=== PATIENT | female | born 1990 | race Caucasian/White ===

== ENCOUNTER 2018-02-12 00:33 | Emergency (ER) | payer MEDICAID, SELFPAY ==
[2018-02-12 00:36] VITALS: BP 138/97; PULSE 134; RESP 24; TEMP 36.5; O2SAT 98; BMI 22.8
[2018-02-12] MEDS: LORazepam 2 MG/ML Syringe IM (01:16)
[2018-02-12] MEDS: Haloperidol Lactate 5 MG/ML Vial IM (01:16)
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
[2018-02-12 01:32] LABS: Absolute Lymphocyte Count 6.72 X10^3/ul (0.83-4.51); Absolute Neutrophil Count 6.3 X10^3/uL (2.0-7.7); Basophil# 0.07 X10^3/uL; Basophil% 0.5 % (0-1); Eosinophil# 0.12 X10^3/uL; Eosinophils% 0.9 % (0-5); Hematocrit 42.5 % (37-47); Hemoglobin 14.5 g/dl (12.0-15.0); Lymphocyte # 6.72 X10^3/ul (4.0); Lymphocyte % 48.5 % (19-41); Mean Corp Hgb Conc 34.1 g/gl (32-36); Mean Corpuscular Hgb 29.5 pg (27.0-32.0); Mean Corpuscular Volume 86.6 fL (81-99); Mean Platelet Vol. 9.4 fl (6.2-12.0); Monocyte# 0.58 X10^3/uL; Monocyte% 4.2 % (0-10); Neutrophil # 6.33 X10^3/uL (2.7-7.7); Neutrophil % 45.6 % (47-70); Platelet Count 422 K/mm3 (150-450); RBC Distribution Width CV 12.8 % (11.6-14.6); RBC Distribution Width SD 39.6 fl (35.1-43.9); Red Blood Count 4.91 M/mm3 (4.2-5.4); White Blood Count 13.9 K/mm3 (4.4-11.0)
[2018-02-12 01:34] LABS: Differential Indicated SCAN CRITERIA MET; POSITIVE COUNT NO; POSITIVE DIFFERENTIAL YES; POSITIVE MORPHOLOGY NO
[2018-02-12 01:51] LABS: Differential Comment SCANNED
[2018-02-12 02:04] VITALS: PULSE 87; RESP 14; O2SAT 97
[2018-02-12 02:16] LABS: Anion Gap 6 (5-15); BUN 7 mg/dL (7-18); BUN/Creat Ratio 8.7 RATIO (10-20); Calcium,Total 8.4 mg/dL (8.5-10.1); Chloride 110 mmol/L (98-107); EST Glomerular Filtration Rate 91 mL/min (>60); Est Glom Filt Rate - Afr Amer 110 mL/min (>60); Estimated Creatinine Clearance 106.56 ml/min; Glucose 103 mg/dL (74-106); Potassium 3.5 mmol/L (3.5-5.1); Sodium Level 143 mmol/L (136-145)
[2018-02-12 02:35] LABS: Pregnancy, Serum, hCG Quali. NEGATIVE Negative (0-9 Nonpreg)
[2018-02-12 06:46] VITALS: BP 97/64; PULSE 87; RESP 14; O2SAT 97
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
--- NOTE | 2018-02-12 08:29 | ED.RN ---
PERSON STATING TO BE PT FRIEND WANTING TO COME BACK TO VISIT PT. SPOKE TO PERSON IN TRIAGE, PERSON SMELLED OF ALCOHOL. INFORMED PERSON HE WAS UNABLE TO SEE PT D/T POSSIBLE INTOXICATION. PERSON STATES HE IS GOING TO CALL HER AND TELL HER TO LEAVE. TALKED TO PT, PT VERBALIZES UNDERSTANDING THAT D/T LEVEL OF INTOXICATION SHE IS UNABLE TO LEAVE WITHOUT A SOBER RIDE. PT STATES SHE IS WAITING ON A SOBER FAMILY MEMBER TO ARRIVE.
--- NOTE | 2018-02-12 09:13 | DCINST.ED_ITS ---
ED Disposition - Plan for ED Patient: Chief Complaint: ETOH Intox Instructions: ED Alcohol Abuse Referrals: Kathi Mooney, SUPERVISOR TELEVISION CHASS[employer] REPAIR-C [Primary Care Provider] -
--- NOTE | 2018-02-12 09:13 | ED.DEP ---
ED Disposition - Plan for ED Patient: Chief Complaint: ETOH Intox Instructions: ED Alcohol Abuse Referrals: Kathi Mooney, HOG RIBBER-C [Primary Care Provider] -
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
== END 2018-02-12 09:19 | disposition home or self-care (01) ==
PROVIDERS: Emergency Provider Emergency Medicine; Family Provider Nurse Practitioner Primary Care; PCP Nurse Practitioner Primary Care
DX: F10.229 Alcohol dependence with intoxication, unspecified (principal); Y90.7 Blood alcohol level of 200-239 mg/100 ml; F32.9 Major depressive disorder, single episode, unspecified; F41.9 Anxiety disorder, unspecified; Z72.0 Tobacco use
CPT/HCPCS: 80048; 80320; 84703; 85025; 96372; 99284; G0480

== ENCOUNTER 2018-08-09 04:53 | Observation (INO) | payer MEDICAID, SELFPAY ==
[2018-08-09] VITALS (10 sets, daily range): BP systolic 112–146; BP diastolic 68–92; PULSE 61–100; RESP 16–18; TEMP 36.4–36.7; O2SAT 97–100; BMI 24.1; BMI 24.0
--- NOTE | 2018-08-09 05:05 | CT_ITS ---
STUDY: CT ABDOMEN AND PELVIS WITHOUT CONTRAST REASON FOR EXAM: Female, 28 years old. Left flank pain RADIATION DOSAGE (If Supplied By Facility): CTDIvol = ( 6.39 ) mGy, DLP = ( 325.52 ) mGycm TECHNIQUE: Transaxial images were obtained from the dome of the diaphragm to the symphysis pubis without oral contrast, and without intravenous contrast. Sagittal and coronal images were reconstructed. Individualized dose optimization techniques were used for this CT. COMPARISON: None. FINDINGS: The visualized lung bases are unremarkable. The visualized portions of the heart are within normal limits. Normal liver. Normal gallbladder and extrahepatic biliary system. Normal spleen. Normal pancreas. Normal bilateral adrenal glands. Normal right kidney. There is moderate left hydronephrosis due to presence of 5 mm stone in the proximal left ureter. Normal visualized stomach. Normal small intestine. Normal colon. The appendix is visualized and appears normal. Normal abdominal aorta. Normal inferior vena cava. Normal retroperitoneum. Normal urinary bladder. Normal abdominal wall. Normal osseous structures. CT/Abdomen/Pelvis without Cont IMPRESSION: There is moderate left hydronephrosis due to presence of 5 mm stone in the proximal left ureter. Electronically Signed: Flakita Mejias MD at 6:12 EST Tel , Service support ,
[2018-08-09] MEDS: Ondansetron 4 MG/2 ML Vial IV ×2 (05:11→17:38)
[2018-08-09] MEDS: 0.9% Normal Saline 1,000 ML 150 ML IV (05:11)
[2018-08-09] MEDS: Ketorolac 30 MG/ML Syringe IV (05:12)
[2018-08-09] MEDS: HYDROmorphone 1 MG/ML Syringe IV ×6 (05:14→18:23)
[2018-08-09 05:25] LABS: Anion Gap 11 (5-15); BUN 5 mg/dL (7-18); BUN/Creat Ratio 6.4 RATIO (10-20); Calcium,Total 8.9 mg/dL (8.5-10.1); Chloride 108 mmol/L (98-107); Creatinine, Serum 0.78 mg/dL (0.55-1.02); EST Glomerular Filtration Rate 94 mL/min (>60); Est Glom Filt Rate - Afr Amer 113 mL/min (>60); Estimated Creatinine Clearance 108.32 ml/min; Glucose 111 mg/dL (74-106); Potassium 4.2 mmol/L (3.5-5.1); Sodium Level 142 mmol/L (136-145)
[2018-08-09 05:32] LABS: hCG Titer Quant., Serum < 1 mIU/mL (<9 non-preg)
[2018-08-09 05:35] LABS: Absolute Lymphocyte Count 2.02 X10^3/ul (0.83-4.51); Basophil# 0.03 X10^3/uL; Basophil% 0.3 % (0-1); Eosinophil# 0.03 X10^3/uL; Eosinophils% 0.3 % (0-5); Hematocrit 40.4 % (37-47); Hemoglobin 13.8 g/dl (12.0-15.0); Lymphocyte # 2.02 X10^3/ul (4.0); Lymphocyte % 21.2 % (19-41); Mean Corp Hgb Conc 34.2 g/gl (32-36); Mean Corpuscular Hgb 30.1 pg (27.0-32.0); Mean Platelet Vol. 10.2 fl (6.2-12.0); Monocyte# 0.44 X10^3/uL; Monocyte% 4.6 % (0-10); Neutrophil # 6.98 X10^3/uL (2.7-7.7); Neutrophil % 73.5 % (47-70); Platelet Count 342 K/mm3 (150-450); RBC Distribution Width CV 13.5 % (11.6-14.6); Red Blood Count 4.59 M/mm3 (4.2-5.4); White Blood Count 9.5 K/mm3 (4.4-11.0)
[2018-08-09 05:36] LABS: POSITIVE COUNT NO; POSITIVE DIFFERENTIAL NO; POSITIVE MORPHOLOGY NO
[2018-08-09 06:13] LABS: Mucous, Urine 0 SEEN /hpf (<or=2+)
--- NOTE | 2018-08-09 06:19 | ED.DCSUM_ITS ---
- ER Visit Summary Date of Service: 08/09/18 Chief Complaint: [Left flank pain] History of Present Illness: The patient is a 28 F [presents the emergency department complaint of left flank pain that started around 9 PM last evening. Patient states the pains been kind of coming and going but became severe prior to arrival in the emergency department. Patient was awoken by severe pain that she rates a 10 out of 10. Patient states she has had kidney stones before and it feels like she might be passing a stone again. Patient denies any urinary frequency, urgency, or hematuria. She denies any fevers. Patient had some nausea and did vomit x1. Patient's last menstrual period was 1 week ago.] Physical Examination: [HEENT-PERRLA, EOMI. Cranial nerves II through XII grossly intact. TMs clear. Mucous membranes moist. No adenopathy. Cardiovascular-regular rate and rhythm without murmur or ectopy Lungs-clear to auscultation, chest wall stable without crepitus or subcu emphysema Abdomen-normoactive bowel sounds, soft. Patient has tenderness palpation over the left lower quadrant with some guarding. There is no rebound, rigidity, or perineal signs. Patient has some CVA tenderness on the left. Extremities-intact ?4, normal range of motion, normal pulses, atraumatic] Test Results: [CBC with differential obtained was normal. Chemistries were normal. HCG was negative. CT scan of the flank showed a 5 mm left proximal ureteral stone with hydronephrosis and hydroureter.] Urinalysis was positive for nitrites, 50-100 RBCs, 5-10 WBCs, and +2 bacteria. Emergency Department Course and Treatment: [Patient was medicated with Dilaudid, Toradol, and Zofran and had good pain relief with that. Patient was started on Rocephin 1 g IV. Patient's pain did return and had to be remedicated with another milligram of Dilaudid. Case was discussed with urologist on-call who asked to admit the patient to take to the OR for stent placement.] Treatment Plan: Admit] Disposition: [Admit] Impression: [Kidney stone with colic UTI] This note was generated with [employer] dictation software. It may contain incorrect words, spelling, and punctuation that were not noted in review of the chart prior to signing ED Disposition - Plan for ED Patient: Chief Complaint: Flank Pain Referrals: Kathi Mooney, CATARINO-C [Primary Care Provider] -
[2018-08-09 06:26] LABS: Color, Urine Brown (Yellow); Glucose, Dipstick Normal (Normal); Ketone-Dipstick 15 mg/dl (Negative); Leukocyte Esterase-Dipstick 25 /ul (Negative); Nitrite-Dipstick Positive (Negative); Occult Blood-Urine 250 /ul (Negative); Protein-Dipstick 100 mg/dl (Negative); Specific Gravity, Urine 1.025 (1.002-1.030); Urine Bilirubin Dipstick Negative (Negative); Urine Clarity Turbid (Clear); Urine Urobilinogen 1 mg/dl (Normal)
[2018-08-09 06:28] LABS: Bacteria 2+ /hpf (None Seen); Red Blood Cells-Urine 50-100 SEEN /hpf (0-5); Squamous Epithelial Cells - UA 5-10 SEEN /hpf (5-10); White Blood Cells 5-10 SEEN /hpf (0-5)
[2018-08-09] MEDS: Ceftriaxone 1 GM/50 ML BAG IV (06:47)
[2018-08-09] MEDS: 0.9% Normal Saline 1,000 ML 100 ML IV (08:36)
[2018-08-09] MEDS: Morphine 2 MG/ML Syringe IV (08:36)
--- NOTE | 2018-08-09 08:36 | PCM.HP.STD ---
History of Present Illness Date of Admission: 08/09/18 Chief Complaint: Left ureteral calculi and severe intractable pain The patient is a 28 year old female with a stone in the mid left ureter about 5-6 mm in size was admitted for a intractable pain also has a lot of white blood cells in the urine possible infection will start her on antibiotics and pain control. She has been having nausea vomiting serum intractable pain in the emergency room called me and asked me to admit the patient. Past Medical History Allergies adhesive Allergy (Severe, Verified 08/09/18 08:02) welts gets welts, hydrocodone [From [place]] Allergy (Mild, Verified 08/09/18 08:02) violently ill acetaminophen [From [place]] Allergy (Verified 08/09/18 08:02) violently ill dial soap Allergy (Uncoded 08/09/18 04:58) Hives Home Medications: Ambulatory Orders Medication Instructions Recorded Lorazepam [Ativan] 1 mg PO TID PRN PRN 02/12/18 Cyclobenzaprine [Flexeril] 10 mg PO TID PRN PRN 08/09/18 Surgical History: noncontributory Psychiatric History: No pertinent psych hx DATA PROCESSING CONSULTANT History: No pertinent DATA PROCESSING CONSULTANT history Lives: With Family Smoking Status: Current every day smoker Tobacco Use: Non-smoker Alcohol: None Drugs: None - *Family History Maternal History Items: No pertinent history Review of Systems Constitutional: Denies: Chills, Fever, Weight Change HEENT: Denies: Head Aches, Sinus Congestion, Sinus Drainage Cardiovascular: Denies: Chest Pain, Palpitations Respiratory: Denies: Cough, Shortness of breath at rest, Sputum production Gastrointestinal: Reports: Nausea, Vomiting. Denies: Abdominal Pain Genitourinary: Reports: Hematuria. Denies: Dysuria Musculoskeletal: Denies: Joint Pain, Joint Tenderness Skin: Denies: Rash, Wounds Neurological: Denies: Numbness, Tingling, Focal weakness Psychiatric: Denies: Anxiety, Depression, Homicidal Ideations, Suicidal Ideations Hematologic/ Lymphatic: Denies: Easy Bruising, Easy Bleeding VTE Information - Inpt Only VTE Present on Admission: No VTE Mechan Device Prophylaxis: SCD's - Physical Exam General: Alert, Oriented x3, Cooperative HEENT: Atraumatic, PERRLA, EOMI, Normocephalic Neck: Supple, No JVD, Negative Carotid Bruits Lungs: Clear to auscultation, Normal air movement Cardiovascular: Regular rate, No murmurs Abdomen: Bowel Sounds Present, Soft, Non Tender Extremities: No edema, Capillary Refill Less than 3 Seconds Skin: No rashes, No breakdown Musculoskeletal: No Tenderness to Palpation of Joints or Extremities Neurological: Cranial nerves II-XII grossly intact Psych/Mental Status: Normal Affect, Appropriate Vital Signs Temp Pulse Resp BP Pulse Ox 97.7 F L 68 16 128/85 H 99 08/09/18 04:54 08/09/18 06:54 08/09/18 06:54 08/09/18 06:54 08/09/18 06:54 Oxygen Delivery Method Room Air Weight: 71.9 kg Body Mass Index (BMI) 24.0 Laboratory Tests Past 24 Hrs 08/09/18 08/09/18 08/09/18 05:02 05:02 05:02 WBC 9.5 RBC 4.59 Hgb 13.8 Hct 40.4 MCV 88.0 MCH 30.1 MCHC 34.2 RDW 13.5 RDW Differential 43.0 Plt Count 342 MPV 10.2 Immature Gran % (Auto) 0.100 Neut % (Auto) 73.5 H Lymph % (Auto) 21.2 [place] % (Auto) 4.6 Eos % (Auto) 0.3 Baso % (Auto) 0.3 Absolute Neuts (auto) 7.0 Absolute Lymphs (auto) 2.02 Total Counted Not Reportable Sodium 142 Potassium 4.2 Chloride 108 H Carbon Dioxide 23.0 Anion Gap 11 BUN 5 L Creatinine 0.78 Estim Creat Clear Calc 108.32 Est GFR (MDRD) Af Amer 113 Est GFR (MDRD) Non-Af 94 BUN/Creatinine Ratio 6.4 L Glucose 111 H Calcium 8.9 HCG, Quant < 1 Urine Color Urine Clarity Urine pH Ur Specific [place] Urine Protein Urine Glucose (UA) Urine Ketones Urine Occult Blood Urine Nitrite Urine Bilirubin Urine Urobilinogen Ur Leukocyte Esterase Urine RBC Urine WBC Ur Squamous Epith Cells Urine Bacteria Urine Mucus 08/09/18 06:05 WBC RBC Hgb Hct MCV MCH MCHC RDW RDW Differential Plt Count MPV Immature Gran % (Auto) Neut % (Auto) Lymph % (Auto) [place] % (Auto) Eos % (Auto) Baso % (Auto) Absolute Neuts (auto) Absolute Lymphs (auto) Total Counted Sodium Potassium Chloride Carbon Dioxide Anion Gap BUN Creatinine Estim Creat Clear Calc Est GFR (MDRD) Af Amer Est GFR (MDRD) Non-Af BUN/Creatinine Ratio Glucose Calcium HCG, Quant Urine Color Brown Urine Clarity Turbid Urine pH 5.0 Ur Specific [place] 1.025 Urine Protein 100 H Urine Glucose (UA) Normal Urine Ketones 15 H Urine Occult Blood 250 H Urine Nitrite Positive H Urine Bilirubin Negative Urine Urobilinogen 1 H Ur Leukocyte Esterase 25 H Urine RBC 50-100 SEEN Urine WBC 5-10 SEEN Ur Squamous Epith Cells 5-10 SEEN Urine Bacteria 2+ Urine Mucus 0 SEEN Assessment/Plan Plan admit the patient to the hospital and will proceed with left ureteroscopy extraction of stone told the patient possible to leave a stent in but this would only be temporary. She is agreeable with proceeding with surgery and signed a consent form.
[2018-08-09] MEDS: Ketorolac 15 MG/ML Vial IV ×2 (09:41→20:39)
[2018-08-09] MEDS: Ciprofloxacin 400 MG/200 ML BAG 200 MG IV (10:22)
[2018-08-09] MEDS: 0.9% NaCl Peripheral Flush Adult/Peds IV ×4 (10:22→18:23)
--- NOTE | 2018-08-09 14:25 | NURSING ---
REPORT CALLED TO BELLE IN [facility]
--- NOTE | 2018-08-09 14:26 | NURSING ---
PT TO [facility] VIA BED
--- NOTE | 2018-08-09 15:58 | PCM.OPRPT ---
Report of Operation Date of Procedure: 08/09/18 Pre-Operative Diagnosis: Ureteral calculi causing obstruction and severe renal colic Post-Operative Diagnosis: The same Surgery/Procedure Performed:: Cystoscopy balloon dilation of the left ureter left ureteroscopy basket extraction of stone and left stent placement Description of Surgical Findings:: 28-year-old female presents emergency room with severe intractable pain from a small stone in the proximal ureter the emergency room asked me to admit the patient to admitted the patient for pain control plan to take her surgery to extract the stone and probably place a stent. 28-year-old female taken the back to the operating room after smooth induction of anesthesia she was placed supine on the table went into the bladder with a 21 [place] rigid cystourethroscope the bladder was normal the urethra is normal the trigone is normal no tumors or stones seen within the bladder some debris in the bladder, I then cannulated the left ureteral orifice with a Glidewire advanced a wire up into the kidney on the left side over the wire balloon dilated the distal ureter with the balloon dilator I then left the wire in place next the wire went in with a SlimLine ureteroscope was able to get up the ureter and finally got into the proximal portion of the ureter and found the stone a lot of inflammation and a stone stuck in the ureter I was able to negotiate a basket past the stone open up the basket and then was able to grab the stone and then very gently extracted the stone from the ureter without any trauma without any pulling, visualize a stone all the way out of the ureter and then handed the stone as a fragment appeared to be a calcium oxalate stone, the wire still in place then went back up with the ureteroscope to inspect the ureter the ureter was fairly inflamed and tight I thought to be best to leave a stent into left the ureter dilate open to make sure that the scar down so over the wire advanced a stent up into the kidney once the stent had gone all the way up to the kidney pulled the wire the stent coiled in the bladder left the string on the stent for extraction and we will plan to see the patient next week in the office where we can remove the stent is left on a string. Patient anesthetic is currently being reversed. Type of Anesthesia:: General Drains: stent left side - Admit VTE Documentation VTE Present on Admission: No VTE Mechan Device Prophylaxis: SCD's
--- NOTE | 2018-08-09 16:04 | PCM.DC.URO ---
Discharge Diet: Light diet - advance as tolerated Discharge Activity: Return to Normal Activity Instructions: Ureteral Stents, Treating Kidney Stones: Ureteroscopic Stone Removal Allergies/Adverse Reactions: Allergies adhesive Allergy (Severe, Verified 08/09/18 08:02) welts gets welts, hydrocodone [From [place]] Allergy (Mild, Verified 08/09/18 08:02) violently ill acetaminophen [From [place]] Allergy (Verified 08/09/18 08:02) violently ill dial soap Allergy (Uncoded 08/09/18 04:58) Hives Medications to take at Discharge Lorazepam [Ativan] 1 mg PO TID PRN PRN 02/12/18 Cyclobenzaprine [Flexeril] 10 mg PO TID PRN PRN 08/09/18 Ondansetron [Ondansetron Odt] 4 mg PO Q6H PRN PRN #14 tab.rapdis 08/09/18 Oxycodone HCl/Acetaminophen [Percocet 5/325] 1 tab PO Q6H PRN PRN 5 Days #14 tab 08/09/18 Phenazopyridine [Pyridium] 100 mg PO TID #14 tab 08/09/18 The following prescriptions were given: Ondansetron [Ondansetron Odt] 4 mg PO Q6H PRN PRN #14 tab.rapdis PRN Reason: Nausea Oxycodone HCl/Acetaminophen [Percocet 5/325] 1 tab PO Q6H PRN PRN 5 Days #14 tab PRN Reason: Pain Phenazopyridine [Pyridium] 100 mg PO TID #14 tab Primary Care Physician: Kathi Mooney NP-C [Primary Care Provider] - Test Results: Test results from this visit will be discussed in further detail at your follow-up appointment, if applicable. Please Follow Up With: Pablo Li MD When: in 2 weeks, please call to make an appointment.
--- NOTE | 2018-08-09 16:05 | CALC_PTH ---
PATIENT: ANASTASIIA ESTRELLA LOC: MS2 U#:[id number] AGE/SX: 28/F ROOM: MS219 RE08/09/[address]: Dr. Pablo Li MD : 1990 BED: 1 DIS: 08/09/2018 SPEC #: [id number] RECD: 08/10/18 09:20 STATUS: HARMONY MARCIAL #: [id number] MATTY: 08/09/18 16:[address]: Pablo Li DEPT: SURGICAL PATHOLOGY RECD BY: Osmel Elam ENTERED: 08/10/18 12:53 SP TYPE: Calculi OTHR DR: Kathi Mooney, WAGON DRIVER SALESPERSON-C Tissues: CALCULI Procedures: Surgery Specimen Level I HEADER OPERATION: Cysto, ureteroscopy, sent, balloon dilation, basket extraction PRE-OP DIAGNOSIS: Left ureteral calculi TISSUE SUBMITTED: Left ureteral calculi GROSS DIAGNOSIS A fragment of calculus, clinically left ureteral calculus, submitted entirely for analysis. SJ:arias 08/11/18 COMMENT The calculus is submitted in its entirety for chemical stone analysis. The results from this study will be reported separately. GROSS DESCRIPTION Received in fixative is one container labeled with the patient's name and designated left ureteral calculus. The specimen consists of a single irregular, chalky-yellow calculus measuring 0.5 x 0.2 x 0.1 cm. The calculus is submitted in its entirety for chemical stone analysis. / AM:arias 08/10/18 CPT: 50648
--- NOTE | 2018-08-09 16:07 | NURSING ---
PT RESTING IN BED, EYES CLOSED, RESP EASY
[2018-08-29 12:06] LABS: Ca Oxalate, Dihydrate 55 % (.); Ca Oxalate, Monohydrate 40 % (.)
--- OUTSIDE RECORDS SUMMARY | 2018-11-10 07:20 | XMS RPT_ITS ---
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 say that she wants to kill herself on my interrogation. Patient does have a known history of anxiety and depression. Patient denies any injuries] Physical Examination: [HEENT-PERRLA, EOMI. Cranial nerves II through XII grossly intact. TMs clear. Mucous membranes moist. No adenopathy. Cardiovascular-regular rate and rhythm without murmur or ectopy Lungs-clear to auscultation, chest wall stable without crepitus or subcu emphysema Abdomen-normoactive bowel sounds, soft, nontender, no rebound or rigidity, no peritoneal signs. Extremities-intact 4, normal range of motion, normal pulses, atraumatic] Test Results: [CBC with differential obtained showed a white count of 13.9 hemoglobin 14, hematocrit 42, platelets 422. Chemistries unremarkable. HCG was negative. Alcohol was 238. Tox screen pending.] Emergency Department Course and Treatment: [While in the emergency department patient labile and belligerent. Patient had to be chemically restrained using Haldol and Ativan.] Treatment Plan: [Patient will be seen by crisis following normalization of her alcohol. Disposition: Pending evaluation by crisis] Impression: [Alcohol intoxication Depression] This note was generated with [employer] dictation software. It may contain incorrect words, spelling, and punctuation that were not noted in review of the chart prior to signing ED Disposition - Plan for ED Patient: Chief Complaint: ETOH Intox Referrals: Kathi Mooney NP-C [Primary Care Provider] - What to do if you have Problems For any increased pain, shortness of breath, bleeding, nausea or vomiting, chest pain, or any unexpected problems, contact your Primary Care Provider. Call [facility] ([phone]) or report to the closest Emergency Room. Call 911 if necessary. 02/12/18720 <Electronically signed by Rama Damon DO> Date Rama Damon Cosigner Signature (If Indicated): Date __ CC: Kathi BEJARANO DISCHARGE INSTRUCTION Observed: 02/12/2018 Status: F Source: [place]AY 9:13 AM [facility] REPOSITORY [facility] Medical Records Department [address] [place] [address] [place] [address] Discharge Instruction 02/12/18912 MR#: [id number] Acct: [id number] Name: ANASTASIIA ESTRELLA Rep #: [id number] : 1990 27 From: Siri Ocasio MD PCP: Kathi Barney Status: REG ER ED Disposition - Plan for ED Patient: Chief Complaint: ETOH Intox Instructions: ED Alcohol Abuse Referrals: Kathi Mooney NP-C [Primary Care Provider] - What to do if you have Problems For any increased pain, shortness of breath, bleeding, nausea or vomiting, chest pain, or any unexpected problems, contact your Primary Care Provider. Call [facility] ([phone]) or report to the closest Emergency Room. Call 911 if necessary. 02/12/18912 <Electronically signed by Siri Ocasio MD> Date iSri Nielsen Signature (If Indicated): Date CC: Kathi Mooney FREIGHT RATE SPECIALIST-C CBC W/DIFF, AUTOMATED Collected: 02/12/2018 Status: F Source: [place] 1:20 AM [facility] REPOSITORY TYPE CODE TESTS RESULT OUT OF RANGE REFERENCE UNITS LAB L100.1000 4.4-11.0 K/mm3 High WBC 13.9 LAB L100.1200 4.2-5.4 M/mm3 Normal RBC 4.91 LAB L100.1300 12.0-15.0 g/dl Normal HGB 14.5 LAB L100.1400 37-47 % Normal HCT 42.5 LAB L100.1500 81-99 fL Normal MCV 86.6 LAB L100.1600 27.0-32.0 pg Normal MCH 29.5 LAB L100.1700 32-36 g/gl Normal MCHC 34.1 LAB L100.1810 11.6-14.6 % Normal RDW CV 12.8 LAB L100.1820 35.1-43.9 fl Normal RDW SD 39.6 LAB L100.1900 150-450 K/mm3 Normal PLT 422 LAB L100.2000 6.2-12.0 fl Normal MPV 9.4 LAB L100.2100 47-70 % Low NEUT% 45.6 LAB L100.2200 19-41 % High LY% 48.5 LAB L100.2300 0-10 % Normal MONO% 4.2 LAB L100.2400 0-5 % Normal EO% 0.9 LAB L100.2500 0-1 % Normal BASO% 0.5 LAB L100.2550 0.0-0.9 % Normal IM GRAN % 0.300 Result Comment: IG% - Immature Granulocytes (promyelocytes, myelocytes and metamyelocytes) > 1% indicates that a LEFT SHIFT is Present. LAB L100.2620 2.0-7.7 X10 3/uL Normal Absolute Neut 6.3 LAB L100.2720 0.83-4.51 X10 3/ul High Absolute Lymph 6.72 LAB L100.4500 Normal SMEAR COMMENT SCANNED Result Comment: LYMPHOCYTOSIS NOTED SLIGHTLY INCREASED PLATELETS NOTED Performed By: #### L100.0100 #### [facility] [place], [address] ALCOHOL, BLOOD Collected: 02/12/2018 Status: F Source: [place]AY (MEDICAL)-SERUM 1:20 AM [facility] REPOSITORY TYPE CODE TESTS RESULT OUT OF RANGE REFERENCE UNITS LAB L501.9100 mg/dL Normal SERUM 238.0 ETOH Result Comment: The serum:whole blood ethanol ratio is approximately 1.14 and varies slightly with hematocrit. Medical Alcohol reference interval and critical value in non-tolerant individuals; 50 - 100 Impairment 100 Intoxication 100 - 250 Severe Poisoning 250 - 400 Deep/possible fatal coma Performed By: #### L501.9100 #### [facility] [address] [place], [address] BASIC METABOLIC Collected: 02/12/2018 Status: F Source: [place] PROFILE (BMP) 1:20 AM [facility] REPOSITORY TYPE CODE TESTS RESULT OUT OF RANGE REFERENCE UNITS LAB L501.0100 74-106 mg/dL Normal GLU 103 Result Comment: Fasting Glucose result from 100 to 125 mg/dL suggests IMPAIRED HOMEOSTASIS per A.D.A. criteria. Please note revised GLUCOSE reference range effective 2017. LAB L501.1000 7-18 mg/dL Normal BUN 7 LAB L501.1100 0.55-1.02 mg/dL Normal CREAT,SERUM 0.80 Result Comment: The validity of the calculated GFR AND GFRAA in patients over 70 years has not been determined. Clinical correlation is essential. LAB L501.1110 >60 mL/min Normal EST GFR 91 Result Comment: Non- GFR Calc LAB L501.1115 >60 mL/min Normal EST GFR - AA 110 Result Comment: GFR Calc LAB L501.1255 ml/min Normal Estimated CRCL 106.56 LAB L501.1300 10-20 RATIO Low BUN/CRE 8.7 LAB L501.2200 8.5-10 mg/dL Low .1 CA 8.4 LAB L501.5300 136-14 mmol/L 5 NA Normal 143 LAB L501.5600 3.5-5. mmol/L 1 K Normal 3.5 LAB L501.5900 98-107 mmol/L High CL 110 LAB L501.6100 21.0-3 mmol/L 2.0 CO2 Normal 27.0 LAB L501.6200 5-15 GAP Normal 6 Performed By: #### L500.2500 #### [facility] [address] [facility] [place], [address] ,SERUM,HCG QUALI. Collected: Status: F Source: [place]AY 02/12/2018 1:20 AM [facility] REPOSITORY TYPE CODE TESTS RESULT OUT OF REFERENCE UNITS RANGE LAB L700.7000 0-9 Nonpreg Negative Normal HCGSQUAL NEGATIVE LAB L700.6700 =>Qualitative mIU/mL Normal HCG Qual < 1 triggr Performed By: #### L700.6800 #### [facility] [address] [place], [address] ALLERGIES ALLERGIES DATE TYPE / CODE NAME / REACTION SEVERITY SOURCE CODE 08/09/2018 Drug hydrocodon violently [place] Allergy/[id number]( [id number] ill [facility]) 54(RXNORM) Hospital Repository 08/09/2018 Drug acetaminop violently Unknown Kay Allergy/[id number]( hen/X32926 ill [facility]) 1605(RXR Hospital ) Repository 08/09/2018 Drug adhesive/F welts [place] Allergy/198784618( [id number]( [facility]) RXNORM) Hospital Repository 08/09/2018 Miscellaneous dial soap Hives Unknown Kay Allergy/[id number]([facility]) Hospital Repository ENCOUNTERS ENCOUNTERS ADMIT/DISCHARGE ACCOUNT ADMITTING ENCOUNTER LOCATION SOURCE NUMBER CLASS 08/09/2018/ [id number] [facility] [place] [facility] [address] [place] [address] ing:MQ5Btnv: Repository LB544Riz: 1 08/09/2018 [id number] Ambulatory BMSBuilding:W Kay 8 [facility] Repository 02/12/2018/ [id number] Emergency [facility] [address] [place] [address] ing:ED Repository PAYERS PAYERS ENCOUNTER GUARANTOR PAYER SUBSCRIBER SOURCE 08/09/2018 ANASTASIIA [place] Primary ANASTASIIA M Kay [id number] Insurance:SALTY AMBROSIOOB: [facility] [id number]AN[place] Number: Repository [id number]: [phone] [id number] [phone] () Date:[id number] [address]UW: 08/09/2018 Secondary NOT GIVENUNK Kay Insurance:SELF PAY [facility] Number: Effective Repository Date:2018-08-09 08/09/2018 ANASTASIIA [place] Primary ANASTASIIA [id number] Insurance:SALTY URANO: [facility] [id number] PLANPolicy Number: Repository [address]Asz: 330 [id number] [phone] () Date:[id number] [address] [place] [address] [place] [address]YX: 08/09/2018 Secondary NOT GIVENUNK Kay Insurance:SELF PAY [facility] Number: Effective Repository Date:2018-08-09 02/12/2018 Anastasiia [place] Primary Anastasiia Villanueva [id number] Insurance:SALTY Ruano: [facility] [id number]ANPolicy Number: Repository [id number]: 330 [id number] [phone] () Date:[id number] [address] [place] [address] [place] [address]GP: 02/12/2018 Secondary NOT GIVENUNK Kay Insurance:SELF PAY [facility] Number: Effective Repository Date:2018-02-12
== END 2018-08-09 20:50 | disposition home or self-care (01) ==
LOC: ED 07:22 → MS2 07:54
PROVIDERS: Admitting Provider Urology; Emergency Provider Emergency Medicine; Family Provider Nurse Practitioner Primary Care; PCP Nurse Practitioner Primary Care; Visit Provider Urology
PROC: 0TJ98ZZ Inspection of Ureter, Via Natural or Artificial Opening Endoscopic (ICD-10-PCS; CPT 52352; principal; 2018-08-09 15:55)
DX: N13.2 Hydronephrosis with renal and ureteral calculous obstruction (principal); F17.200 Nicotine dependence, unspecified, uncomplicated
CPT/HCPCS: 52320; 52332; 74176; 80048; 81001; 82360; 84702; 85025; 87086; 87088; 88300; 93005; 96361; 96365; 96367; 96375; 96376; 99218; 99282; 99406; J7030; A4216; C1769; C2617; G0378; J0744; J2405

== ENCOUNTER 2018-09-29 18:26 | Emergency (ER) | payer MEDICAID, SELFPAY ==
[2018-08-09 09:58] VITALS: BMI 24.0
[2018-09-29 18:28] VITALS: BP 125/72; PULSE 121; RESP 18; TEMP 37.3; O2SAT 100; BMI 22.0
--- NOTE | 2018-09-29 18:48 | ED.DCSUM_ITS ---
- ER Visit Summary Date of Service: 09/29/18 Chief Complaint: Fever History of Present Illness: The patient is a 28 F history of anxiety and kidney stones. Patient states since yesterday afternoon gradual onset of fever and body aches. Nausea without vomiting. No diarrhea. Mild dysuria. Also nonproductive cough. States that her temperature was as high as 104.6 yesterday at home. Physical Examination: Young female appears like she does not feel well but does not look septic or toxic. Vital signs are stable. Pulse ox 9% on room air no signs of hypoxia. HEENT exam TMs normal bilaterally. Posterior pharynx moist and pink. No erythema or exudate. No trouble swallowing or breathing. Moist weeks membranes. Neck nontender. No lymphadenopathy. No meningismus. Able to touch chin to chest. Normal flexion-extension. Lungs dry cough. But no rales, rhonchi or wheezing. Heart tachycardic no murmur. Abdomen is soft and nontender. Normal bowel sounds no peritoneal signs. Right upper and lower quadrants are unremarkable. Extremities moves all 4. Neurovascular intact. No edema. No rashes or redness. Neck nontender. No CVA tenderness. Neurologically she is awake alert with no focal motor or sensory deficits. Test Results: Chest x-ray 2 views shows no acute abnormality. No pneumonia. Read both by myself the radiologist. Urinalysis shows negative. No signs of infection. Emergency Department Course and Treatment: Patient was offered but did not want an IV at this time. Clinically she does not appear to be dehydrated so I am okay with her deferring. At 2024 PM I went back to reevaluate the patient and go over her test results with her she had left prior to being discharged. We were able to get a hold of her via phone and I told her tests were negative. Treatment Plan: Treatment for symptoms of viral syndrome and fever. Fluids and rest. Tylenol Motrin. Follow-up if not improving return if feeling worse. Disposition: Left prior to discharge Impression: Acute fever secondary to viral syndrome This note was generated with [employer] dictation software. It may contain incorrect words, spelling, and punctuation that were not noted in review of the chart prior to signing ED Disposition - Plan for ED Patient: Disposition: Home or Assisted Living Instructions: ED Viral Syndrome Referrals: Kathi Mooney NP-C [Primary Care Provider] - 3-5 Days if not improving Additional Instructions: Plenty of fluids and rest. Alternate Tylenol and Motrin for fever. Follow-up with not improving return to the ER feeling worse. Both your chest x- ray and urinalysis were negative. Her history and exam are consistent with a viral syndrome.
--- NOTE | 2018-09-29 18:55 | RAD_ITS ---
STUDY: X-RAY CHEST REASON FOR EXAM: Female, 28 years old. Fever for 36 hours TECHNIQUE: PA and lateral views of the chest. COMPARISON: None. FINDINGS: The lungs are clear and expanded. There is no demonstrated pleural abnormality. Normal size heart. Normal mediastinum and latia. Normal visualized pulmonary arteries. Normal visualized aortic arch and descending thoracic aorta. Normal visualized thoracic spine. Normal visualized ribs, clavicles, and shoulders. There is no demonstrated abnormality of the visualized soft tissue structures of the upper abdomen. RAD/Chest PA and Lateral IMPRESSION: No airspace consolidation or pleural effusion. Electronically Signed: Howard Vega MD at 19:17 EST , Service support ,
[2018-09-29 19:34] LABS: Bacteria 0 SEEN /hpf (None Seen); Mucous, Urine 0 SEEN /hpf (<or=2+)
[2018-09-29 19:42] LABS: Color, Urine Yellow (Yellow); Glucose, Dipstick Normal (Normal); Ketone-Dipstick 5 mg/dl (Negative); Leukocyte Esterase-Dipstick Negative /ul (Negative); Nitrite-Dipstick Negative (Negative); Occult Blood-Urine 150 /ul (Negative); Protein-Dipstick 30 mg/dl (Negative); Specific Gravity, Urine 1.015 (1.002-1.030); Urine Bilirubin Dipstick Negative (Negative); Urine Clarity Sl. Cloudy (Clear); Urine Urobilinogen Normal (Normal)
[2018-09-29 19:51] LABS: Red Blood Cells-Urine 0-5 SEEN /hpf (0-5); Squamous Epithelial Cells - UA 10-25 SEEN /hpf (5-10); White Blood Cells 0-5 SEEN /hpf (0-5)
[2018-09-29 20:14] VITALS: BP 132/88; PULSE 100; RESP 18; TEMP 37.9; O2SAT 100
--- NOTE | 2018-09-29 20:28 | DCINST.ED_ITS ---
ED Disposition - Plan for ED Patient: Disposition: Home or Assisted Living Instructions: ED Viral Syndrome Referrals: Kathi Mooney, CATARINO-C [Primary Care Provider] - 3-5 Days if not improving Additional Instructions: Plenty of fluids and rest. Alternate Tylenol and Motrin for fever. Follow-up with not improving return to the ER feeling worse. Both your chest x- ray and urinalysis were negative. Her history and exam are consistent with a viral syndrome.
--- NOTE | 2018-09-29 20:32 | ED.RN ---
THIS RN WAS ENTERING ANOTHER PATIENT'S ROOM AND SAW SAMEER AND HER SIGNIFICANT OTHER LEAVING THE ER PRIOR TO D/C INSTRUCTIONS
== END 2018-09-29 20:33 | disposition home or self-care (01) ==
PROVIDERS: Emergency Provider Emergency Medicine; Family Provider Nurse Practitioner Primary Care; PCP Nurse Practitioner Primary Care
DX: B34.9 Viral infection, unspecified (principal); F41.9 Anxiety disorder, unspecified; Z72.0 Tobacco use
CPT/HCPCS: 71046; 81001; 99282

== ENCOUNTER 2018-11-22 20:17 | Emergency (ER) | payer MEDICAID, SELFPAY ==
[2018-11-22 20:18] VITALS: BP 138/79; PULSE 99; RESP 16; TEMP 37; O2SAT 100; BMI 22.8
[2018-11-22 21:41] LABS: Bacteria 0 SEEN /hpf (None Seen); Mucous, Urine 0 SEEN /hpf (<or=2+); Red Blood Cells-Urine 0 SEEN /hpf (0-5)
[2018-11-22 21:54] LABS: Color, Urine Yellow (Yellow); Glucose, Dipstick Normal (Normal); Ketone-Dipstick 5 mg/dl (Negative); Leukocyte Esterase-Dipstick 25 /ul (Negative); Nitrite-Dipstick Negative (Negative); Occult Blood-Urine 10 /ul (Negative); Protein-Dipstick Negative (Negative); Specific Gravity, Urine 1.025 (1.002-1.030); Urine Bilirubin Dipstick Negative (Negative); Urine Clarity Clear (Clear); Urine Urobilinogen Normal (Normal)
[2018-11-22 22:02] LABS: Squamous Epithelial Cells - UA 5-10 SEEN /hpf (5-10); White Blood Cells 0-5 SEEN /hpf (0-5)
[2018-11-22 22:02] LABS: Internal QC Validated? YES +Cl - CLEAR BKGD; Pregnancy, Urine Negative Negative
[2018-11-22 22:28] VITALS: BP 115/63; PULSE 88; RESP 13; O2SAT 97
--- NOTE | 2018-11-22 22:37 | ED.DCSUM_ITS ---
- ER Visit Summary Date of Service: 11/22/18 Chief Complaint: Left flank pain History of Present Illness: The patient is a 28 F intermittent left flank pain since yesterday morning. No radicular symptoms. No nausea or vomiting. History of multiple kidney stones last one in July requiring ureteral stent. Reports have at least 10 stones in the past. Last menstrual period 5-6 days ago. Currently symptoms resolved. However did have severe symptoms prior to coming in. Physical Examination: General: Alert and oriented ?3, no acute distress HEENT: Normocephalic, atraumatic. Moist mucosa membranes Neck: supple, nontender. Cardiovascular: Regular rate and rhythm, no murmurs Respiratory: Normal breath sounds, symmetric, no distress Back: No CVA tenderness, no rash Abdomen: Soft, nontender, nondistended Extremities: Nontender, no edema, pulses intact ?4 Neuro: no focal neurological deficits. Test Results: UA, slight blood, leukocytes, this 5-10 squamous cells. Urine culture sent and pending. HCG negative. Emergency Department Course and Treatment: Patient currently asymptomatic. She required one intervention for our stones in July. She did not want any additional scans today if not needed. I did check a urine noted blood, there are squamous cells with leukocytes. She has no dysuria. Urine culture was sent. HCG's negative. Reevaluation symptoms stable states she had recurrent colic episode, patient's history likely kidney stones. Will treat symptomatic with prescriptions. Signs and skip discussed return. All questions were answered. Prior to discharge, Slight return of pain, was given oxycodone and Zofran. Treatment Plan: [] Disposition: Discharge Impression: 1. Left renal colic 2. Hematuria This note was generated with [employer] dictation software. It may contain incorrect words, spelling, and punctuation that were not noted in review of the chart prior to signing ED Disposition - Plan for ED Patient: Disposition: Home or Assisted Living Diagnosis: Renal colic on left side, Hematuria Instructions: ED Stone Renal W Colic Prescriptions: Ibuprofen 600 mg PO Q6H PRN PRN #20 tablet PRN Reason: Pain Oxycodone HCl/Acetaminophen [Percocet 5/325] 1 tablet PO Q6H PRN PRN 3 Days #12 tablet PRN Reason: Pain Ondansetron [Zofran Odt] 4 mg PO Q8H PRN PRN #10 tablet PRN Reason: Nausea Referrals: Kathi Mooney, CATARINO-C [Primary Care Provider] - Pablo Li MD [STAFF PHYSICIAN] - 3-5 Days
[2018-11-22] MEDS: oxyCODONE 5 MG Tablet PO (22:55)
[2018-11-22] MEDS: Ondansetron ODT 4 MG Tablet PO (22:55)
[2018-11-22 22:57] VITALS: BP 115/60; PULSE 70; RESP 14; O2SAT 100
== END 2018-11-22 22:58 | disposition home or self-care (01) ==
PROVIDERS: Emergency Provider Emergency Medicine; Family Provider Nurse Practitioner Primary Care; PCP Nurse Practitioner Primary Care
DX: N23 Unspecified renal colic (principal); Z87.442 Personal history of urinary calculi
CPT/HCPCS: 81001; 81025; 87086; 87088; 99285; A4216

== ENCOUNTER 2019-01-09 11:31 | Emergency (ER) | payer MEDICAID, SELFPAY ==
[2019-01-09 11:32] VITALS: BP 145/83; PULSE 113; RESP 18; TEMP 36.4; O2SAT 92; BMI 23.2
[2019-01-09] MEDS: Naproxen 500 MG Tablet PO (12:05)
[2019-01-09] MEDS: Ondansetron ODT 4 MG Tablet PO (12:10)
--- NOTE | 2019-01-09 12:17 | ED.DCSUM_ITS ---
- ER Visit Summary Date of Service: 01/09/19 Chief Complaint: Right hand injury History of Present Illness: The patient is a 28 F who states that she was upset earlier this morning and punched a steel door. She has pain and swelling to her right hand. She states she fell to the ground and has a small lack noted across her nasal bridge. She initially had a nosebleed but that is now resolved. Physical Examination: Vital signs significant for heart rate of 113, otherwise unremarkable. Head neck examination was a superficial laceration across the nasal bridge. There is no blood noted in the nares and no septal hematoma. Is regular rate and rhythm. Lung sounds are clear. Right upper extremity examination reveals edema and tenderness over the right third, fourth, fifth distal metacarpals. No rotational deformity is noted. She has good sensation and cap refill distally. Test Results: Right hand x-ray shows no fracture per my review. Emergency Department Course and Treatment: Patient was given Naprosyn and Zofran here. Hand will be wrapped with an Omar wrap. She requested a prescription for Zyrtec for her allergies. Treatment Plan: [] Disposition: Discharge Impression: 1. Right hand contusion 2. Superficial nasal bridge laceration This note was generated with [employer] dictation software. It may contain incorrect words, spelling, and punctuation that were not noted in review of the chart prior to signing ED Disposition - Plan for ED Patient: Disposition: Home or Assisted Living Instructions: ED Contusion Upper Ext Prescriptions: Cetirizine HCl [Zyrtec] 10 mg PO DAILY #30 capsule Naproxen [Naprosyn] 500 mg PO BID PRN PRN #20 tablet PRN Reason: Pain Referrals: Kathi Mooney NP-C [Primary Care Provider] - 1 Week
--- NOTE | 2019-01-09 12:34 | RAD_ITS ---
STUDY: X-RAY - RIGHT HAND REASON FOR EXAM: Female, 28 years old. Pain following injury. TECHNIQUE: 3 view(s) of the hand. COMPARISON: None. FINDINGS: Normal radiocarpal articulation. Normal distal radioulnar joint. Normal visualized carpal bones. Normal carpal articulations Normal carpometacarpal articulation of the thumb. Normal second through fifth carpometacarpal joints. Normal metacarpi. Normal metacarpophalangeal joint of the thumb. Normal interphalangeal joint of the thumb. Normal proximal and distal phalanges of the thumb. Normal metacarpophalangeal joints of the second through fifth fingers. Normal proximal and distal interphalangeal joints of the second through fifth fingers. Normal phalanges of the second through fifth fingers. Diffuse dorsal soft tissue swelling. RAD/Hand Min 3 Views IMPRESSION: Diffuse dorsal soft tissue swelling. Electronically Signed: Jeffrey Meza, at 14:13 EDT , Service support ,
[2019-01-09 14:25] VITALS: PULSE 102; RESP 16; O2SAT 99
== END 2019-01-09 14:26 | disposition home or self-care (01) ==
PROVIDERS: Emergency Provider Emergency Medicine; Family Provider Nurse Practitioner Primary Care; PCP Nurse Practitioner Primary Care
DX: S60.221A Contusion of right hand, initial encounter (principal); W22.8XXA Striking against or struck by other objects, initial encounter; Y93.89 Activity, other specified; Y92.9 Unspecified place or not applicable; S01.21XA Laceration without foreign body of nose, initial encounter; W19.XXXA Unspecified fall, initial encounter; F12.90 Cannabis use, unspecified, uncomplicated; Z72.0 Tobacco use
CPT/HCPCS: 73130; 99283

== ENCOUNTER → 2020-12-17 09:32 | Outpatient (CLI) | payer MEDICAID, SELFPAY ==
[2020-12-17 10:05] LABS: Absolute Lymphocyte Count 2.93 X10^3/uL (0.83-4.51); Absolute Neutrophil Count 6.5 X10^3/uL (2.0-7.7); Basophil# 0.04 X10^3/uL; Basophil% 0.4 % (0-1); Eosinophil# 0.15 X10^3/uL; Eosinophils% 1.4 % (0-5); Hematocrit 41.1 % (37-47); Hemoglobin 13.5 g/dL (12.0-15.0); Lymphocyte # 2.93 X10^3/ul (0.83-4.51); Lymphocyte % 28.1 % (19-41); Mean Corp Hgb Conc 32.8 g/dL (32-36); Mean Corpuscular Hgb 29.3 pg (27.0-32.0); Mean Corpuscular Volume 89.3 fL (81-99); Mean Platelet Vol. 9.8 fl (6.2-12.0); Monocyte# 0.75 X10^3/uL; Monocyte% 7.2 % (0-10); NRBC Flagged by Analyzer 0 % (0-5); Neutrophil # 6.51 X10^3/uL (2.7-7.7); Neutrophil % 62.5 % (47-70); Platelet Count 338 K/mm3 (150-450); RBC Distribution Width CV 12.9 % (11.6-14.6); RBC Distribution Width SD 42.4 fl (35.1-43.9); White Blood Count 10.4 K/mm3 (4.4-11.0)
[2020-12-17 10:19] LABS: Protein, Urine (Random) 15.3 mg/dL (<11.9); Protein:Creat Ratio 69 mg/g CRE (0-200)
[2020-12-17 10:22] LABS: ALB/GLOB Ratio 1.1 RATIO (0.9-2.4); AST(SGOT) 16 U/L (15-37); Alanine Aminotransfer ALT/SGPT 47 U/L (13-56); Albumin, Serum 3.8 g/dL (3.2-5.0); Alkaline Phosphatase 67 U/L (45-117); Anion Gap 4 (5-15); BUN 8 mg/dL (7-18); BUN/Creat Ratio 11.3 RATIO (10-20); Calcium,Total 8.7 mg/dL (8.5-10.1); Chloride 108 mmol/L (98-107); Creatinine, Serum 0.71 mg/dL (0.55-1.02); EST Glomerular Filtration Rate 103 mL/min (>60); Est Glom Filt Rate - Afr Amer 125 mL/min (>60); Globulin 3.5 g/dL (2.2-4.2); Glucose 100 mg/dL (74-106); LDH 154 U/L (84-246); Protein, Total 7.3 g/dL (6.4-8.2); Sodium Level 138 mmol/L (136-145)
[2020-12-17 10:59] LABS: HIV - WCH Non-Reactive (Nonreactive); Hepatitis B Surface Antigen Non-Reactive (Nonreactive); Hepatitis C Antibody Non-Reactive (Nonreactive); Rubella IgG Reactive (Nonreactive); Syphilis Antibodies Non-reactive
[2020-12-19 04:08] LABS: Chlamydia By Nucleic Acid AMP Negative (Negative)
[2020-12-19 12:48] LABS: Gonococcus By Nucleic Acid AMP Negative (Negative)
[2020-12-22 12:27] LABS: HPV APTIMA, High Risk Negative (Negative)
== END ==
PROVIDERS: PCP Nurse Practitioner Primary Care; Visit Provider Student in an Organized Health Care Education/Training Program
DX: Z12.4 Encounter for screening for malignant neoplasm of cervix (principal); Z11.3 Encounter for screening for infections with a predominantly sexual mode of transmission; Z32.01 Encounter for pregnancy test, result positive
CPT/HCPCS: 36415; 80053; 82570; 83615; 84156; 85025; 86703; 86762; 86780; 86803; 86870; 87086; 87340; 87491; 87591; 87624; 88175; G0145

== ENCOUNTER → 2021-01-05 | Outpatient (CLI) | payer MEDICAID, SELFPAY | END | disposition home or self-care (01) | LOC: LABSPEC 16:52 | PROVIDERS: PCP Nurse Practitioner Primary Care; Visit Provider Obstetrics & Gynecology | DX: R35.0 Frequency of micturition (principal) | CPT/HCPCS: 87086; 87088 ==

== ENCOUNTER → 2021-02-02 15:56 | Outpatient (CLI) | payer MEDICAID, SELFPAY | PROVIDERS: PCP Nurse Practitioner Primary Care; Visit Provider Student in an Organized Health Care Education/Training Program | DX: Z34.82 Encounter for supervision of other normal pregnancy, second trimester (principal) | CPT/HCPCS: 36415 ==

== ENCOUNTER → 2021-02-12 15:47 | Outpatient (CLI) | payer MEDICAID, SELFPAY | PROVIDERS: PCP Nurse Practitioner Primary Care; Visit Provider Student in an Organized Health Care Education/Training Program | DX: Z34.80 Encounter for supervision of other normal pregnancy, unspecified trimester (principal) | CPT/HCPCS: 36415 ==

== ENCOUNTER → 2021-05-20 09:20 | Outpatient (CLI) | payer MEDICAID, SELFPAY ==
[2021-05-20 09:33] LABS: Hematocrit 30.5 % (37-47); Hemoglobin 10.2 g/dL (12.0-15.0); Mean Corp Hgb Conc 33.4 g/dL (32-36); Mean Corpuscular Hgb 29.1 pg (27.0-32.0); Mean Corpuscular Volume 87.1 fL (81-99); Mean Platelet Vol. 9.3 fl (6.2-12.0); Platelet Count 269 K/mm3 (150-450); RBC Distribution Width CV 13.3 % (11.6-14.6); RBC Distribution Width SD 41.5 fl (35.1-43.9); White Blood Count 16.2 K/mm3 (4.4-11.0)
[2021-05-20 10:01] LABS: Glucose Challenge Gest 1H 50g 202 mg/dL (70-140)
== END ==
PROVIDERS: PCP Nurse Practitioner Primary Care; Visit Provider Obstetrics & Gynecology
DX: O36.1930 Maternal care for other isoimmunization, third trimester, not applicable or unspecified (principal); Z3A.00 Weeks of gestation of pregnancy not specified
CPT/HCPCS: 36415; 82950; 85027

== ENCOUNTER → 2021-05-25 09:56 | Outpatient (CLI) | payer MEDICAID, SELFPAY ==
[2021-05-25 11:00] LABS: Glucose GTT-Gestation. Fasting 95 mg/dL (<105)
[2021-05-25 11:59] LABS: Glucose GTT-Gestational 1 Hr 193 mg/dL (<190)
[2021-05-25 12:58] LABS: Glucose GTT-Gestational 2 Hr 196 mg/dL (<165)
[2021-05-25 14:19] LABS: Glucose GTT-Gestational 3 Hr 119 L (<145)
== END ==
PROVIDERS: PCP Nurse Practitioner Primary Care; Visit Provider Obstetrics & Gynecology
DX: O24.912 Unspecified diabetes mellitus in pregnancy, second trimester (principal)
CPT/HCPCS: 36415; 82951; 82952

== ENCOUNTER 2021-07-09 11:09 | Outpatient (CLI) | payer MEDICAID, SELFPAY ==
[2021-07-09 11:29] VITALS: BMI 34.1
[2021-07-09 11:35] VITALS: BP 138/89; PULSE 109; TEMP 36.6
[2021-07-09 11:36] VITALS: BP 134/75; PULSE 102
[2021-07-09] MEDS: Betamethasone/Betamethasone 30 MG/5 ML Vial 12 MG IM (12:12)
--- NOTE | 2021-07-09 14:51 | OB.TRI.NOTE ---
HPI - General HPI Narrative ANASTASIIA ESTRELLA, is a 31 F who presents for Celestone PFS PFS Home Medications docusate sodium [Stool Softener] 250 mg PO DAILY 07/09/21 [History Last Taken Unknown] famotidine [Pepcid] 20 mg PO BID 07/09/21 [History Last Taken Unknown] ferrous sulfate [iron] 325 mg PO DAILY 07/09/21 [History Last Taken Unknown] prenat.vits,devante,syc-ecgm-nzkcl [ #2] 1 tab PO DAILY 07/09/21 [History Last Taken Unknown] Allergy/AdvReac Type Severity Reaction Status Date / Time adhesive Allergy Severe welts Verified 07/09/21 11:43 hydrocodone [From [place]] Allergy Mild violently Verified 07/09/21 11:43 ill acetaminophen [From [place]] Allergy violently Verified 07/09/21 11:43 ill dial soap Allergy Hives Uncoded 07/09/21 11:43 Social History (System 04/18/19 @ 13:41 by [employer]ra [employer]) Smoking Status: Current every day smoker History Elective abortions Hx Para 1 Spontaneous abortions Hx # Term Pregnancies Ectopic pregnancies Hx # Pregnancies Multiple births # of living children Assessment & Plan (1) : PLAN: Patient arrives for Celestone. Discharge home
== END 2021-07-09 12:15 | disposition home or self-care (01) ==
LOC: LABSPEC 11:11 → WPOUT 11:27 → WP 11:28
PROVIDERS: PCP Nurse Practitioner Primary Care; Referring Provider Obstetrics & Gynecology; Visit Provider Obstetrics & Gynecology
DX: Z03.818 Encounter for observation for suspected exposure to other biological agents ruled out (principal); O99.333 Smoking (tobacco) complicating pregnancy, third trimester; F17.200 Nicotine dependence, unspecified, uncomplicated; Z3A.00 Weeks of gestation of pregnancy not specified
CPT/HCPCS: 87635; 96372; 99218; U0005; G0378; J0702; U0003

== ENCOUNTER 2021-07-10 12:10 | Outpatient (CLI) | payer MEDICAID, SELFPAY ==
[2021-07-10 12:27] VITALS: BMI 33.2
[2021-07-10 12:35] VITALS: TEMP 36.7
[2021-07-10 12:36] VITALS: BP 144/83; PULSE 125
[2021-07-10 12:48] VITALS: BP 136/77; PULSE 116
[2021-07-10] MEDS: Betamethasone/Betamethasone 30 MG/5 ML Vial 12 MG IM (12:58)
--- NOTE | 2021-07-13 09:37 | OB.TRI.NOTE ---
HPI - General HPI Narrative ANASTASIIA ETSRELLA, is a 31 F who presents to labor and delivery for Celestone injection. She is approximately 36+ weeks scheduled for a section for placenta previa. PFSH PFSH Home Medications docusate sodium [Stool Softener] 250 mg PO DAILY 07/09/21 [History Last Taken Unknown] famotidine [Pepcid] 20 mg PO BID 07/09/21 [History Last Taken Unknown] ferrous sulfate [iron] 325 mg PO DAILY 07/09/21 [History Last Taken Unknown] prenat.vits,devante,php-iclj-masyh [ #2] 1 tab PO DAILY 07/09/21 [History Last Taken Unknown] Allergy/AdvReac Type Severity Reaction Status Date / Time adhesive Allergy Severe welts Verified 07/09/21 11:43 hydrocodone [From [place]] Allergy Mild violently Verified 07/09/21 11:43 ill acetaminophen [From [place]] Allergy violently Verified 07/09/21 11:43 ill dial soap Allergy Hives Uncoded 07/09/21 11:43 Social History (System 04/18/19 @ 13:41 by Terra Pride) Smoking Status: Current every day smoker History Elective abortions Hx Para 1 Spontaneous abortions Hx # Term Pregnancies Ectopic pregnancies Hx # Pregnancies Multiple births # of living children Assessment & Plan (1) Placenta previa antepartum in third trimester: PLAN: 36+ week intrauterine for delivery next week. Celestone given. Continue routine care.
== END 2021-07-10 13:00 | disposition home or self-care (01) ==
LOC: WPOUT 12:20 → WP 12:21
PROVIDERS: PCP Nurse Practitioner Primary Care; Referring Provider Obstetrics & Gynecology; Visit Provider Obstetrics & Gynecology
DX: O44.03 Complete placenta previa NOS or without hemorrhage, third trimester (principal); F17.200 Nicotine dependence, unspecified, uncomplicated; O99.333 Smoking (tobacco) complicating pregnancy, third trimester; Z3A.36 36 weeks gestation of pregnancy
CPT/HCPCS: 96372; 99218; G0378; J0702

== ENCOUNTER → 2021-07-14 09:47 | Outpatient (CLI) | payer MEDICAID, SELFPAY | PROVIDERS: PCP Nurse Practitioner Primary Care; Visit Provider Obstetrics & Gynecology | DX: R69 Illness, unspecified (principal) | CPT/HCPCS: 36415; 86850; 86870; 86900; 86901; 86902; 86920; 86922 ==

== ENCOUNTER 2021-07-15 04:47 | Inpatient (IN) | payer MEDICAID, SELFPAY ==
[2021-07-15] VITALS (38 sets, daily range): BP systolic 78–128; BP diastolic 39–78; PULSE 96–148; RESP 12–128; TEMP 36.1–36.7; O2SAT 95–100; BMI 35.2
--- NOTE | 2021-07-15 | FALS_PTH ---
PATIENT: ANASTASIIA ESTRELLA LOC: [facility] U#:[id number] AGE/SX: / ROOM: [facility] RE07/15/[address]: Dr. Terell Arango MD : 1990 BED: 1 DIS: 07/19/2021 SPEC #: [id number] RECD: 07/15/21 09:54 STATUS: HARMONY MARCIAL #: [id number] MATTY: 07/15/21 00:[address]: Terell Arango DEPT: SURGICAL PATHOLOGY RECD BY: Navi Roblero ENTERED: 07/15/21 09:55 SP TYPE: FALL TUBES OTHR DR: Kathi Mooney, EDUCATIONAL THERAPY TEACHER-C Tissues: Fallopian tube Procedures: Surgery Specimen Level II HEADER OPERATION: Repeat PRE-OP DIAGNOSIS: Tubal ligation TISSUE SUBMITTED: Fallopian tubes MICROSCOPIC DIAGNOSIS Right fallopian tube, salpingectomy: Fallopian tube, no pathologic diagnosis. SJ 07/17/21 MICROSCOPIC DESCRIPTION Slides are reviewed. GROSS DESCRIPTION Received in fixative is one container labeled with the patient's name and designated bilateral fallopian tubes. The specimen consists of a fallopian tube including fimbrial end measuring 11.0 cm in length and 0.5 in diameter. Sections reveal unremarkable cut surfaces. Key Cutter sections are submitted in one cassettes. / SJ:cc 07/15/21 TC:4 CPT: 15444
[2021-07-15] MEDS: Lactated Ringers 1,000 ML 999 ML IV ×2 (05:20→15:32)
[2021-07-15 05:42] LABS: Absolute Lymphocyte Count 3.03 X10^3/uL (0.83-4.51); Absolute Neutrophil Count 12.2 X10^3/uL (2.0-7.7); Basophil# 0.08 X10^3/uL; Basophil% 0.5 % (0-1); Eosinophil# 0.11 X10^3/uL; Eosinophils% 0.6 % (0-5); Hematocrit 32.5 % (37-47); Hemoglobin 10.9 g/dL (12.0-15.0); Lymphocyte # 3.03 X10^3/ul (0.83-4.51); Lymphocyte % 17.8 % (19-41); Mean Corp Hgb Conc 33.5 g/dL (32-36); Mean Corpuscular Hgb 28.9 pg (27.0-32.0); Mean Corpuscular Volume 86.2 fL (81-99); Mean Platelet Vol. 9.4 fl (6.2-12.0); Monocyte# 1.23 X10^3/uL; Monocyte% 7.2 % (0-10); NRBC Flagged by Analyzer 0 % (0-5); Neutrophil # 12.22 X10^3/uL (2.7-7.7); Neutrophil % 71.6 % (47-70); Platelet Count 330 K/mm3 (150-450); RBC Distribution Width CV 14.6 % (11.6-14.6); RBC Distribution Width SD 45.7 fl (35.1-43.9); Red Blood Count 3.77 M/mm3 (4.2-5.4); White Blood Count 17.1 K/mm3 (4.4-11.0)
[2021-07-15] MEDS: Acetaminophen 500 MG Tablet 1000 MG PO ×2 (05:52→13:32)
[2021-07-15 06:21] LABS: Bedside Glucose 130 mg/dL (70-110)
[2021-07-15] MEDS: Lactated Ringers 1,000 ML 150 ML IV (06:21)
[2021-07-15 06:47] LABS: Amphetamine Urine VISTA NEGATIVE (<1000 ng/mL); Barbiturate Urine VISTA NEGATIVE (< 200 ng/mL); Benzodiazepine Urine VISTA NEGATIVE (< 200 ng/mL); Cocaine Urine VISTA NEGATIVE (< 300 ng/mL); Ecstacy Urine VISTA NEGATIVE (< 500 ng/mL); Methadone Urine VISTA NEGATIVE (< 300 ng/mL); PCP Urine VISTA NEGATIVE (< 25 ng/mL); THC Urine VISTA NEGATIVE (< 50 ng/mL); Vista UDS pH Range 7
--- NOTE | 2021-07-15 06:49 | NURSING ---
@ 0300 per [facility] Florez report, maternal temperature taken with captain waiter/waitress Dr. Trent at bedside for evaluation after increased temperature and was 98.6 F oral
[2021-07-15] MEDS: Sodium Citrate/Citric Acid 30 ML UDC PO (07:03)
--- NOTE | 2021-07-15 07:29 | HP.PCM_ITS ---
History and Physical Date of Admission: 07/15/21 ACOG ANTEPARTUM RECORD - HISTORY AND PHYSICAL (07/15/2021) Name: ANASTASIIA ESTRELLA History of this : This is a 31 year old [id number] presents at 37 wks + 0 days gestation for repeat section and tubal. care has been remarkable for a placenta previa and diet-controlled gestational diabetes. OB Physician: Terell Arango MD 's Physician: [facility] ...................................................................... : 1990 Age: 31 Address: [address] [place] [address] Phone: H) [phone] (O) [phone] Insurance Carrier: [employer] [id number] Emergency Contact: ALL WEINSTEIN [phone] ...................................................................... Final YESY: 08/05/21 By Ultrasound: LMP c/w US PARITY: (G-Total Pregnancies P-Fullterm,Premature,Induced AB,Spont AB, Ectopics, Multiple,Living) YESY CONFIRMATION: By LMP: 10/29/20 By First Ultrasound Exam: 08/04/21 Final YESY: 08/05/21 OB PROBLEM LIST: Anti Saundra Ab - New FOB this (after transfusion G1) EPDS today = 5. H/O anxiety FOB had a brother born with Spina Bifida FOB has a nephew with Autism FOB has two children, ages 4 and 7 FOB is neg saundra MFM still wants titers q4 with eval >1:4 For repeat c/s, desires BTL H/O kidney stones. Stent placed H/O multiple UTIs Previous C/S x 2, plans repeat C/S Plans Tubal Pt has GDM. Try diet control first. Quit smoking! ATQ marijuana Has quit smoking marijuana 12/29/20 Total previa and possible accreta; MRI pending; pelvic rest Wants genetic/carrier screening, MaterniT 21. 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 Illicit Drug Use - denies use of street drugs Sexual Activity - single sexual partner Residence - lives with SO Place of - [address] Hours Worked - 38 hours per week Spouse-Sig Other Name - Shahid Fabian Spouse-Sig Other Occupation - Snapguide operator Spouse-Sig Other Phone No - [phone] Children Name(s) - Antonio (09), Gilbert(15) PRIOR DELIVERY HISTORY DEL DATE GEST LAB WT LB WT OZ TYPE ANES LABOR TX 22 Apr 30 41 16 9 9 Vag Spinal No Nov 15 38 0 8 13 C-Sec Spinal No ANTEPARTUM FLOW CHART VISIT GE RTC FU F F WI U U DATE WK MD WKS HT PN HR M SS BP ED WT WI GL D EF ST __ ____ ___ __ __ ___ __ __ __ ___ __ __ __ ___ __ 18 Jun JMW 3 36 + + 138/76 sl 233 tr - 10 Jun JMW 1 35 + + 120/70 sl 227 tr - Jun JMW 1 34 V + + 120/80 sl 225 tr - May JMW 2 32 + + 124/84 0 219 - - 13 Jun 21 JMW 1 31 + + 138/84 sl 216 tr - May 20 JMW 2 29 + + 136/80 0 215 - 2+ 01 May 16 JMW 3 25 + + 136/78 0 206 tr - 03 Apr 10 JMW 4 20 + + 128/70 0 197 ne ne Mar 06 SHM 4 16 + + 130/70 0 190 tr - Jan 31 CM 4 +U US 132/80 0 189 tr - December 27 JMW 4 U+ US 134/86 0 189 tr - ANTEPARTUM NOTE(S): Jul 09 2021: R-NST; Celestone today; good BS control Jul 01 2021: Pre-op for Repeat ,Good FM Jun 25 2021: Sono Today, Good FM,Blood Sugars Copied Jun 10 2021: Excellent BS control with diet Jun 03 2021: Watching Diet,Good FM, check BSs May 20 2021: CBC,OGCT,Anti-Ashford Today,Heartburn Apr 22 2021: Glucola/Instructions Given, Good FM, MRI no accreta Mar 24 2021: Denies bleeding; U/S per MFM Feb 24 2021: see note Jan 23 2021: Sono Today Dec 24 2020: Sono Today,NOB and PNV COMPREHENSIVE ANTEPARTUM NOTE(S): Jul 13 2021: Anastasiia is here for NST and visit. NST reactive per Dr ROCHA. Two contr felt by pt. Excited about C section and meeting baby on Tuesday. SHERLY. Jul 09 2021: Anastasiia us here for her NST at 36 w 1 d. She reports that she has been having dark brown vaginal discharge, noted when she wipes from Tuesday to Tuesday this week. Last evening she started to feel some uncomfortable irregular cramping/ctx's, she had them all through the night , but after a shower this morning, she had not felt any further. Has been having BH ctx's. Denies LoF. She reports good F Jul 01 2021: Anastasiia presents here today for PNV and pre-op for Repeat C- Section and BS with JW at [facility] on 07-15-21. Questions answered and consents signed, Covid testing will be done next week with PNV. Good FM. Denies new concerns. Having NST today and again next week with her PNV . Celestone Injectio ns set-up over in [facility] for and Sunday 07/08 and 07/09, I spoke with Tonia GRAJEDA. JACKLYN RN Jun 10 2021: Anastasiia her for PNV. Fm good. Edema check good. She had a ruff weekend. Does have a hemorrhoid from being backed up. Taking stool softer in morning. CB Mar 24 2021: Anastasiia is here for PNV. Just had MRI at [facility]. Returns 04-16 for 2 additional apts. They are going to check baby heart and do growth study. Shares that placenta is growing over top of previous c-sec scar. Feeling well and having good FM. No edema noted today. Urine neg/neg. LSS Mar 10 2021: Records from [facility] reviewed. Paternal genotyping - K(-), k(+). associated with 1% risk fetus inherits Ashford Ag. Mar 04 2021: Entry for 02/24/21. Previa noted on US, pelvic rest advised. Discussed Anti-Saundra titer 1:256, FOB previously tested for Ashford Ag and negative. Will refer to [facility] for MCA Dopplers however. Feb 24 2021: Anastasiia is here for u/s and visit. She is feeling well today but reports history of occular migraines that she has approx 2 x/year but last month had 3 and had to go home from work as she has to be in a dark, quiet room. She is asking about her previa and advised may avoid IC but will confirm all with Dr BURROUGHS. Had MaterniT, SMA, and CF screen all WNL. Has upcoming appt on 03/17 with MFM. La Jan 23 2021: Devan presents here today for a SONO and PNV. Reports nausea/fatigue much better. Denies recent spotting. Cardiac Echo scheduled at [facility] on 02/10/21 at 1500. NIPT and CF testing drawn in Office today. JACKLYN Jan 23 2021: 12/2w visit. Desires aneuploidy screening with NIPT testing, CF/SMA screening. Done today. Hx of cardiac ablation for SVT in 2009 - no issue, will order maternal ECHO, scheduled 02/10. Anti-Saundra AB pos, FOB negative. MFM referral for reconfirmation of plan that baby is not at risk for hemolytic disease of the . Subchorionic hemorrhage - repeat US 4w. CM Jan 05 2021: Anastasiia is here following call to Triage w c/o 3-4 d hx urinary frequency, urgency. Occ feels sharp pain at end of stream or in groin area w movements, squatting, lifting. Feels like she has to push urine out. T. 98.0 po. Clean catch urine obtained. Long dip trace protein, pH 5.0, sg 1.025. Remainder WNL. Reviewed w Dr MANTILLA. Spec to lab for C. States she's tried to cut down on coffee and po Dec 29 2020: Anastasiia is here for her NOB visit, she is a with an YESY of 08/05/2021, current GA is 8 w 5 d. She resides with new John, Shahid Fabian, and her two children sons form previous relationships. Shahid has two children from prior relationships, ages 4 and 7. She states that this was an unplanned , and that at first Shahid wasn't happy about the , but she is happy that he seems Dec 17 2020: Anastasiia is here for missed menses. Approximate LMP 3-10-21. Office and home UPT +. 7w 0d YESY is 08-05- . [place] but excited. Having some nausea and dry heaves. Advised crackers in the am. Previous c-sec x2 first due to LOP. Last PAP and WNL. Is a previous smoker. Admits to current pot smoking but states she will not do while . H/O heart ablation due to S REVIEW OF SYSTEMS: GENERAL - Denies fever, or chills SKIN - Denies rash, new skin lesions, or change in moles EYES - Denies blurred vision, or change in visual acuity EARS - Denies ear pain, or difficulty hearing NOSE - Denies nasal congestion, discharge, or bleeding MOUTH - Denies sore throat, or difficulty swallowing NECK - Denies pain or swelling RESPIRATORY - Denies shortness of breath, cough, wheezing CARDIOVASCULAR - Denies palpitations, chest pain, orthopnea, PND, peripheral edema, syncope or claudication GASTROINTESTINAL - Denies nausea, vomiting, diarrhea, constipation, Denies abdominal pain, melena and or bright red blood GENITOURINARY - Denies dysuria, frequency of urination, urgency, or hesitancy MUSCULOSKELETAL - Denies joint or muscle pain, or back pain NEUROLOGICAL - Denies localized numbness, weakness, or tingling PSYCHIATRIC - Denies depression, anxiety, substance abuse or suicide attempts ENDOCRINE - Denies heat or cold intolerance, weight loss or gain, increasing thirst HEMATO-IMMUNOLOGIC - Denies easy bruising, bleeding, oral ulcerations or recurrent infections GENETICS SCREENING: Age 35+ years: No Thalassemia: No Neural Tube Defect: FOB brother Down Syndrome: No CRIS-SACHS: No Sickle Cell Disease: No Hemophilia: No Musc. Dystrophy: No Cystic Fibrosis: No-declines screening [address] Chorea: No Mental Retardation: No Fragile X: No Other genetic: No Other defects: No SABs/still births: No Drugs since LMP: No Comments: FOB nephew with Autism INFECTION HISTORY: High risk AIDS: No High risk Hepatitis: No Exposed to TB: No Exposed to Herpes: No Rash/viral illness since LMP: No History of STD: No MENSTRUAL HISTORY: *Menses Amount/Duration: 5 daysMenses Regularity: heavyFrequency: monthlyMenarche (Age Onset): 12* PAST SUMMARY: PARITY: 1. Total Pregnancies............ 3 2. Full Term Pregnancies........ 2 3. Premature.................... 0 4. Abortions - Induced.......... 0 5. Abortions - Spontaneous...... 0 6. Ectopics..................... 0 7. Multiple Births.............. 0 8. Living Children.............. 2 PAST #1: Date of :.................. 05/[birth year] Gestation Weeks:................ 41 Length of labor(hours):......... 16 Sex:............................ M Weight-lbs:............... 9 Weight-oz:................ 9 Type of Delivery:............... Vag Type of Anesthesia:............. Spinal Place of Delivery:.............. [place] Treatment of Labor?:.... No Comment: POST-DATES, C-S, FTP PAST #2: Date of :.................. 12/16/14 Gestation Weeks:................ 38 Length of labor(hours):......... 0 Sex:............................ M Weight-lbs:............... 8 Weight-oz:................ 13 Type of Delivery:............... C-Sect Type of Anesthesia:............. Spinal Place of Delivery:.............. [place] Treatment of Labor?:.... No Comment: PHYSICAL EXAMINATION General Appearence: 31 yo female in no acute distress Vital Signs: AF, VSS Heart: RRR without rubs or gallops Lungs: CTA x 2 Breasts: deferred Abdomen: gravid Pelvis: Cervix: Presentation: cephalic Station: Fetus: Size: AGA Movement: present Heart: present Impression /Plan: 37 wks + 0 days intrauterine with placenta previa. Patient has been typed and crossed for 2 units of packed red blood cells. Mom has written seed 2 doses of steroids last week. Preparations in progress for delivery.
--- NOTE | 2021-07-15 07:32 | OP.PCM_ITS ---
Maternal Data Information Final YESY: 08/05/21 Gestational age: 37w0d Details Operative Information Date of Procedure: 07/15/21 Pre-Operative Diagnosis: Placenta Previa, Gestational Diabetes, Desires Permanent Sterilization Post-Operative Diagnosis: Placenta Previa, Gestational Diabetes, Desires Permanent Sterilization, Adhesions Indications Narrative: Surgeon: Terell Arango MD, FACOG Procedure: Repeat Low Transverse Cervical Caesarean Section, Right Salpingectomy, Lysis of Adhesions Findings: Viable female with Apgars of 8/9 in occiput anterior presentation with clear amniotic fluid and three-vessel placenta. Total placenta previa noted with large uterine window present. Dense adhesions of the omentum to the anterior uterus. Absent left fallopian tube and ovary. Indication: This is a 31-year-old who presents for her third at 37 weeks gestation. care has been remarkable for a total placenta previa, diet-controlled gestational diabetes, and anti-Chili antibody positive. Father of baby is Saundra antigen negative. The patient has been counseled regarding the risk and indications of this procedure including the possibility of bleeding infection and injury to surrounding structures such as bowel bladder. She also understands the permanent nature of her tubal, the failure rate of 1 to 2%, and the availability of other nonpermanent control options. We also discussed the possibility of needing a blood transfusion during the surgery given her placenta previa. All questions were answered. Procedure: Patient was taken to the operating room where after spinal anesthesia was placed, the patient was prepped and draped in usual sterile fashion and a Pierre catheter was placed. The abdomen was entered through the patient's prior Pfannenstiel incision and peritoneum was entered bluntly. We were unable to develop a bladder flap on the lower uterine segment but a large window was present so a low transverse incision was made on the uterus and head was easily delivered onto the operative field through the placenta and nose mouth and oropharynx were bulb suctioned. Subsequently a viable female infant was born with Apgars of 8/9. The was noted to cry move all extremities vigorously on the operative field. The umbilical cord was doubly clamped and ligated and handed to the nursery personnel who were present for the delivery. Placenta was delivered in pieces and noted to be 3 vessels. After ligating some adhesions with the LigaSure device, the uterus was exteriorized and remaining placental tissue was removed with ring forceps and a banjo curette. Adhesions in the anterior uterus were taken down using the LigaSure device and the uterus was then closed in 2 layers first with running locked 0 Vicryl suture followed by a second imbricating layer with 0 Vicryl suture. After developing anterior peritoneum, 0 Vicryl suture was then used in a horizontal mattress interrupted fashion to affect hemostasis of the uterine incision line. The left fallopian tube and ovary were absent but there was noted to be a normal right fallopian tube and ovary. The right mesosalpinx was divided using the LigaSure device to the uterus. The uterus was returned to the pelvis. Hemostasis was noted and rectus abdominis muscles were reapproximated i n the midline with interrupted Number 0 Vicryl suture in a horizontal mattress fashion. Fascia was closed with running Number 1 PDS Strata fix suture. Subcutaneous tissue was irrigated with copious amounts of saline solution and then closed with running 3-0 Vicryl suture. Skin was closed with 4-0 monocryl suture in a running subcuticular fashion. Steri strips and a Mepilex dressing were placed across the incision. The patient tolerated the procedure well and was taken to the recovery room in satisfactory condition. Sponge, needle, and instrument counts were all reportedly correct. EBL was 2000 cc. Ancef 2 gms IV was given prior to the procedure. CBC is pending but the patient is to get 2 units of packed red blood cells now. 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 #1: Kellie Kraft Type of Anesthesia: Spinal Anesthesiologist: Liane Johnson Antibiotic Given: Ancef 2 grams IV x1 Drain: Pierre to straight drain Estimated Blood Loss: 500 cc Fluids Replaced: crystalloid Findings Amniotic Fluid Description: Clear Placental Delivery Description: Manual Removal, Retained and Curettage Placenta Disposition: [facility] Cord Vessel Description: 3 Vessels Cord Entanglement: None Infant A Gender: Female (1 minute): 8 (5 minute): 9 Complications Risks of Surgery Discussed w/Patient: Bleeding, Infection, Permanency, Failure Rate of 1 to 2%, Injury to surrounding structure(s) including bowel and bladder and Availability of other non-permanent control options Complications: None
--- NOTE | 2021-07-15 07:33 | NURSING ---
Dr Arango contacted upon patient arrival. Blood glucose 130, patient states she drank coffee with sugar at 0300. Confirmed Dr Nely Ramirez will be assisting with surgery this AM. 2 units of PRBCs on hold. No further interventions needed at this time. Blood sugar to be checked in recovery.
[2021-07-15] MEDS: Cefazolin 2 GM in 0.9% Normal Saline 100 ML IV (07:40)
[2021-07-15] MEDS: Methylergonovine 0.2 MG/ML Ampul IM ×2 (08:57→13:31)
[2021-07-15 09:07] LABS: Hemoglobin 8.1 g/dL (12.0-15.0)
[2021-07-15 09:20] LABS: International Normalized Ratio 1.2; Prothrombin Time (Protime)PT. 14.7 SECONDS (11.7-14.9)
[2021-07-15] MEDS: Oxytocin 30 units/NS 500 ml 30 UNITS/500 ML IV.SOLN 167 UNITS IV (09:20)
[2021-07-15 09:21] LABS: Partial Thromboplast Time 24.1 Seconds (24.1-36.2)
[2021-07-15 09:35] LABS: Fibrinogen 280 mg/dl (203-444)
[2021-07-15 09:48] LABS: Pathology Specimen OB SEE PATHOLOGY REPORT
[2021-07-15] MEDS: HYDROmorphone 1 MG/ML Syringe IV ×4 (09:55→16:43)
[2021-07-15] MEDS: Ondansetron 4 MG/2 ML Vial IV ×2 (12:05→15:43)
[2021-07-15] MEDS: 0.9% Saline Lock 10 ML Syringe IV (13:32)
[2021-07-15] MEDS: Lactated Ringers 1,000 ML 100 ML IV (13:58)
[2021-07-15 14:16] LABS: Hematocrit 27.9 % (37-47); Hemoglobin 9.4 g/dL (12.0-15.0); Mean Corp Hgb Conc 33.7 g/dL (32-36); Mean Corpuscular Hgb 28.9 pg (27.0-32.0); Mean Corpuscular Volume 85.8 fL (81-99); Mean Platelet Vol. 9.3 fl (6.2-12.0); Platelet Count 236 K/mm3 (150-450); RBC Distribution Width CV 14.5 % (11.6-14.6); RBC Distribution Width SD 45.1 fl (35.1-43.9); Red Blood Count 3.25 M/mm3 (4.2-5.4); White Blood Count 26.9 K/mm3 (4.4-11.0)
--- NOTE | 2021-07-15 14:25 | NURSING ---
Phone call to Dr. Hakan Arango at 1404. Reported pt. remains tachycardic in 120's-130's after having Hespan, 2 units PRBC's, starting TXA. Checking CBC now - does he have any other orders? To check co-ags, CMP, Dr. Arango plans to stop in to see pt.
[2021-07-15 14:42] LABS: ALB/GLOB Ratio 0.5 RATIO (0.9-2.4); AST(SGOT) 12 U/L (15-37); Alanine Aminotransfer ALT/SGPT 14 U/L (13-56); Albumin, Serum 1.7 g/dL (3.2-5.0); Alkaline Phosphatase 94 U/L (45-117); Anion Gap 9 (5-15); BUN 6 mg/dL (7-18); BUN/Creat Ratio 9.7 RATIO (10-20); Calcium,Total 7.2 mg/dL (8.5-10.1); Chloride 111 mmol/L (98-107); Creatinine, Serum 0.62 mg/dL (0.55-1.02); EST Glomerular Filtration Rate 120 mL/min (>60); Est Glom Filt Rate - Afr Amer 145 mL/min (>60); Globulin 3.2 g/dL (2.2-4.2); Glucose 190 mg/dL (74-106); Potassium 3.4 mmol/L (3.5-5.1); Protein, Total 4.9 g/dL (6.4-8.2); Sodium Level 143 mmol/L (136-145)
[2021-07-15 14:46] LABS: International Normalized Ratio 1.3; Prothrombin Time (Protime)PT. 15.4 SECONDS (11.7-14.9)
[2021-07-15 14:47] LABS: Partial Thromboplast Time 25.3 Seconds (24.1-36.2)
[2021-07-15 14:48] LABS: Fibrinogen 224 mg/dl (203-444)
--- NOTE | 2021-07-15 15:03 | NURSING ---
Phone call to Dr. Hakan Arango to report lab results - discussed calcium at 7.2 - he reports would affect BP more than HR. Reviewed PT/INR. Ok to cont. with POC, but was going to discuss calcium with Dr. Tereso Arango. Office called per this nurse to report calcium level, also reported Hgb, Hct, and platelets. Message left with Ana Rosa in office - will await return call to see if any change in POC.
[2021-07-15] MEDS: 0.9% Normal Saline 1,000 ML 999 ML IV (15:30)
[2021-07-15] MEDS: Cefazolin 1 GM/50 ML BAG IV ×2 (15:32→23:15)
--- NOTE | 2021-07-15 17:15 | HYST_PTH ---
PATIENT: ANASTASIIA ESTRELLA LOC: [facility] U#:[id number] AGE/SX: / ROOM: [facility] RE07/15/[address]: Dr. Terell Arango MD : 1990 BED: 1 DIS: 07/19/2021 SPEC #: [id number] RECD: 07/15/21 20:28 STATUS: HARMONY GILLISNas #: [id number] MATTY: 07/15/21 17:[address]: Terell Arango DEPT: SURGICAL PATHOLOGY RECD BY: Jozef Mcclain ENTERED: 07/17/21 09:40 SP TYPE: HYSTERECT OTHR DR: MD Dr. Mitesh Clark MD Dr. Nicholas F Kotsonis, MD Jessica Witmer, FRONT DESK COORDINATOR-C Tissues: Uterus, NOS Procedures: Surgery Specimen Level V HEADER OPERATION: Hysterectomy, LEAH, repair cystotomy PRE-OP DIAGNOSIS: hemorrhage TISSUE SUBMITTED: Uterus MICROSCOPIC DIAGNOSIS Uterus, supracervical hysterectomy: Endometrium ? decidual changes and hemorrhage. Myometrium ? no pathologic diagnosis. See comment. TISHA 07/20/21 COMMENT Placental tissue is not identified. MICROSCOPIC DESCRIPTION Slides are reviewed. GROSS DESCRIPTION Received in fixative is one container labeled with the patient's name and designated uterus. The specimen consists of a supracervical hysterectomy specimen consisting of .uterus. Cervix is not identified. The uterus weighs 796 gm and measures 13.0 x 15.0 x 9.0 cm. The serosal surface is smooth. The triangular endometrial cavity measures 10.0 cm in length and 6.0 cm in width. The endometrium is hemorrhagic without any mass lesions and measures 0.3 cm in thickness. Placental tissue is not identified. Sections of uterine wall do not reveal any mass lesions and measures up to 4.0 cm in thickness. Odd Job Worker sections are submitted in six cassettes as follows: 1 ? anterior lower uterine segment 2 - posterior lower uterine segment, 3 & 4 - anterior uterine wall, 5 & 6 - posterior uterine wall, SJ:mick 07/17/21 TC:5 CPT: 87022
[2021-07-15 19:11] LABS: Hematocrit 24.6 % (37-47); Mean Corp Hgb Conc 32.5 g/dL (32-36); Mean Corpuscular Hgb 29.7 pg (27.0-32.0); Mean Platelet Vol. 9.5 fl (6.2-12.0); Platelet Count 147 K/mm3 (150-450); RBC Distribution Width SD 50.1 fl (35.1-43.9); Red Blood Count 2.69 M/mm3 (4.2-5.4)
[2021-07-15 19:26] LABS: Mean Corpuscular Volume 91.4 fL (81-99)
[2021-07-15 19:27] LABS: International Normalized Ratio 1.6; Prothrombin Time (Protime)PT. 17.9 SECONDS (11.7-14.9)
--- NOTE | 2021-07-15 19:27 | OP.PCM_ITS ---
Problems Associated Problem List Diagnoses (1) Intraoperative bladder injury: (2) : (3) Placenta previa antepartum in third trimester: Report of Operation Date of Procedure: 07/15/21 Pre-Operative Diagnosis: Intraoperative bladder injury Post-Operative Diagnosis: Same Surgery/Procedure Performed:: Repair bladder injury, bilateral ureteral catheterization Surgeon: Verito Andrew Type of Anesthesia: General Drains: TAVIA drain Estimated Blood Loss (mL): 5 cc Description of Procedure: The patient is a 31-year-old female who delivered a child earlier today with complications of bleeding. She is brought back to the operating room by Dr. Arango for further evaluation and management. Upon opening and evaluating the situation, a 7 cm right in the dome of the bladder was identified and the Pierre balloon was clearly visualized. I was called in for assistance in closure of the bladder. On first assessment, bilateral ureteral orifices were clearly visualized and appeared to be uninvolved with any injury. The only other injury seen was a mucosal laceration to the back wall of the bladder. This was approximately 1.5 cm in length. At this time a Pollick catheter was used to gently cannulate each ureter starting with the left side. The catheter easily extended to 20 cm without obstruction or evidence of ureteral injury on further evaluation of her abdomen. This process was then repeated on the patient's right side. Her right side was filled with adhesions. The catheter advanced easily without evidence of obstruction or injury. From both sides clear yellow urine was obtained from the end of the Pollick. At this time the edges of the bladder mucosa were isolated. The mucosal rent in the back wall of the bladder was closed with 3-0 Vicryl with the knot buried on one side. An attempt was made at closure using chromic first. The mucosa was very friable. At this time, attention was turned toward the rent to the dome of the bladder. The bladder mucosa was visualized easily and closed with 3-0 chromic in watertight running fashion. A second layer of detrusor muscle was closed using 3-0 Vicryl in running fashion. An imbricated layer was then closed over this using 2-0 Vicryl. At this time the Pierre catheter was filled with approximately 150 cc of sterile saline and there was no evidence of extravasation identified. The Pierre catheter was then put to straight drain. A TAVIA drain was inserted along the right side of the bladder. Dr. Arango continue to close the patient's abdomen with a certified first assistant. There were no complications during this procedure. Grafts/Implants Used: None Complications None
[2021-07-15 19:28] LABS: Fibrinogen 149 mg/dl (203-444); Partial Thromboplast Time 27.7 Seconds (24.1-36.2)
[2021-07-15 19:52] LABS: Anion Gap 8 (5-15); BUN 7 mg/dL (7-18); BUN/Creat Ratio 9.7 RATIO (10-20); Calcium,Total 5.9 mg/dL (8.5-10.1); Chloride 114 mmol/L (98-107); Creatinine, Serum 0.72 mg/dL (0.55-1.02); EST Glomerular Filtration Rate 100 mL/min (>60); Est Glom Filt Rate - Afr Amer 121 mL/min (>60); Estimated Creatinine Clearance 118.31 ml/min; Glucose 206 mg/dL (74-106); Potassium 5.6 mmol/L (3.5-5.1); Sodium Level 143 mmol/L (136-145)
--- NOTE | 2021-07-15 20:00 | PCM.OPRPT ---
Report of Operation Date of Procedure: 07/15/21 Pre-Operative Diagnosis: Hemorrhage Status Post Post-Operative Diagnosis: Hemorrhage Status Post and Cystotomy Surgery/Procedure Performed:: Hysterectomy, Repair of Cystotomy Description of Surgical Findings:: 18 cm post uterus with minimal blood in the abdominal cavity. Approximately 8 cm cystotomy in bladder dome noted upon entering the abdominal cavity. Intact surgical sites. Surgeon: Terell Arango recording studio internship: Tori Smith Type of Anesthesia: General (Endotracheal) Anesthesiologist: Rip Arango Specimen's removed: Supracervical uterus Drains: Pierre to straight drain, TAVIA to bulb Estimated Blood Loss (mL): 200 cc Fluids Replaced: Crystalloid, packed red blood cells (3 total units today), FFP Description of Procedure: Surgeon: Terell Arango MD, FACOG Procedure: Supracervical Abdominal Hysterectomy, Cystotomy Repair (per Dr. Andrew) Indications: This is a 31-year-old patient who had a repeat this morning for placenta previa at 37 weeks gestation. She was noted to have dense adhesions and a large uterine window. Blood loss during the surgery was estimated at 2000 cc. Postoperatively the patient continued to have vaginal bleeding and abdominal cramping. Her abdomen remained soft. Despite giving the patient 2 units of packed red blood cells, Pitocin, 2 doses of Methergine, and TRX her bleeding persisted. We discussed placing a balloon in the uterus to help with bleeding versus proceeding with a hysterectomy given that the patient had a sterilization procedure at the time of her . We decided to proceed with hysterectomy given that her bleeding had not slowed down throughout the day and the likelihood of balloon stopping the bleeding was minimal. She was counseled regarding the risk and indications of this procedure including the possibility of bleeding, infection, and injury to surrounding structures such as bowel and bladder. We discussed leaving the right ovary in place to maintain estrogen hormonal milieu. All questions were answered. Procedure: Patient was taken to the operating room where after induction of general anesthesia she was prepped and draped in the usual sterile fashion. A Pierre catheter had been previously placed. After taking down the patient's prior Pfannenstiel incision, subcutaneous, fascial stitches, and rectus abdominis muscles stitches, the abdomen was entered and the cystotomy was immediately noted. Sutures were placed at each angle of the cystotomy and urology was called for repair. In the meantime, Adriana retractor was placed. Infundibulopelvic ligaments were ligated on the left and right ovary was left in place on the right and progressive bites were taken down on either side of the uterine cervix. Final bites across the lower uterine segment were ligated with 0 Vicryl suture and multiple horizontal mattress sutures were placed across the cervical stump. The cervical stump and and pelvic sidewall pedicles were oversewn where necessary to achieve hemostasis. Pelvis was copiously irrigated removing all clot. At this point of the procedure Dr. Andrew entered the operating room suite and performed cystotomy repair which is dictated separately. A #10 flat fluted TAVIA drain was placed just below the right side of the Pfannenstiel incision and sutured in place with nylon suture. Rectus abdominis muscles were reapproximated in the midline with interrupted 0 Vicryl suture. 0 PDS strata fix was used to close the fascia in a running fashion and subcutaneous tissue was copiously irrigated with saline solution before closing with 3-0 Vicryl suture. 3-0 Monocryl suture was then used in running fashion to reapproximate skin edges area and Steri-Strips and Mepilex dressing were placed across the incision. Patient tolerated the procedure well was taken to recovery room in satisfactory condition; sponge instrument and needle counts were all reportedly correct. Estimated blood loss for the case was 200 cc. Ancef 2 g IV was given prior to beginning the operative procedure. There were no apparent complications of the surgery. Specimen to pathology was supracervical uterus. Grafts/Implants Used: None Complications None. Admit VTE Documentation VTE Present on Admission: Yes VTE Mechan Device Prophylaxis: SCD's
[2021-07-15 20:41] LABS: Bedside Glucose 220 mg/dL (70-110)
[2021-07-15] MEDS: Ketorolac 30 MG/ML Syringe IV ×2 (21:58)
[2021-07-15] MEDS: 0.9% Normal Saline 1,000 ML 15 ML IV (22:03)
[2021-07-15] MEDS: 0.9% Normal Saline 1,000 ML 50 ML IV (23:14)
[2021-07-15] MEDS: Docusate Sodium 100 MG Capsule PO (23:14)
[2021-07-16] VITALS (21 sets, daily range): BP systolic 99–125; BP diastolic 45–69; PULSE 88–124; RESP 14–18; TEMP 36.4–37.3; O2SAT 97–100
--- NOTE | 2021-07-16 00:06 | PN.OBGYN_ITS ---
Subjective Subjective Called to see patient regarding blood pressure of 86/48. Patient symptomatic from this and now complaining of a headache. Heart rate has decreased from 130s down to 100. Urine output has been approximately 75 cc an hour. Most recent calcium drawn in the operating room was low to be repeated in the morning and m ost recent potassium was elevated at 5.6. Patient earlier received 2 g total of calcium gluconate IV. Patient has thus far received 5 units of packed red blood cells and 2 bags of Hespan and FFP. Lungs are clear to auscultation x2. Abdomen is soft and mildly tender. Hands and feet are moderately edematous. Dressing is dry and almost no vaginal bleeding. TAVIA drain is producing about 20 cc of serosanguineous fluid each hour. Patient is alert and oriented. Patient with moderately low blood pressures but vital signs are otherwise stable. Bleeding minimal. We will repeat CBC and CMP to confirm platelets are normal and calcium and potassium levels to see whether these levels need adjuste d. Objective Data Objective Data Vital Signs: Vital Signs Temp Pulse Resp BP Pulse Ox 97.4 F L 115 H 18 92/55 L 100 07/15/21 22:25 07/15/21 22:25 07/15/21 22:25 07/15/21 22:25 07/15/21 22:25 Oxygen Delivery Method Room Air Weight: 238 lb 12.17 oz Body Mass Index (BMI) 35.2 Intake & Output: Intake and Output for Last 24 Hours 07/14/21 07/15/21 07/16/21 23:59 23:59 23:59 Intake Total 86996.36 / 66701.36 Output Total 1745 / 1745 Balance 8897.36 / 8897.36 Lab / Micro Data Result Diagrams: 07/15/21 18:52 07/15/21 18:52 Labs: Laboratory Results - last 24 hr 07/14/21 09:48: Blood Type AB POSITIVE, Antibody Screen POSITIVE H, Antibody Identification ANTI-K, Crossmatch See Detail 07/14/21 09:52: Crossmatch See Detail 07/14/21 09:52: Crossmatch See Detail 07/14/21 09:52: Crossmatch See Detail 07/15/21 05:20: WBC 17.1 H, RBC 3.77 L, Hgb 10.9 L, Hct 32.5 L, MCV 86.2, MCH 28.9, MCHC 33.5, RDW Std Deviation 45.7 H, RDW Coeff of Della 14.6, Plt Count 330, MPV 9.4, Immature Gran % (Auto) 2.300 H, Neut % (Auto) 71.6 H, Lymph % (Auto) 17.8 L, [place] % (Auto) 7.2, Eos % (Auto) 0.6, Baso % (Auto) 0.5, Absolute Neuts (auto) 12.2 H, Absolute Lymphs (auto) 3.03, Nucleated RBC % 0 07/15/21 05:36: POC Glucose 130 H 07/15/21 05:40: Urine Opiates Screen NEGATIVE, Urine Methadone Screen NEGATIVE, Ur Barbiturates Screen NEGATIVE, Ur Phencyclidine Scrn NEGATIVE, Ur Amphetamines Screen NEGATIVE, U Methamphetamin-MDMA NEGATIVE, U Benzodiazepines Scrn NEGATIVE, Urine Cocaine Screen NEGATIVE, U Cannabinoids Screen NEGATIVE, Ur Drug Screen Comment 07/15/21 08:42: Hgb 8.1 L 07/15/21 08:42: PT 14.7, INR 1.2, APTT 24.1, Fibrinogen 280 07/15/21 14:05: WBC 26.9 H, RBC 3.25 L, Hgb 9.4 L, Hct 27.9 L, MCV 85.8, MCH 28.9, MCHC 33.7, RDW Std Deviation 45.1 H, RDW Coeff of Della 14.5, Plt Count 236, MPV 9.3 07/15/21 14:15: PT 15.4 H, INR 1.3, APTT 25.3, Fibrinogen 224 07/15/21 14:15: Sodium 143, Potassium 3.4 L, Chloride 111 H, Carbon Dioxide 23.0, Anion Gap 9, BUN 6 L, Creatinine 0.62, Estim Creat Clear Calc 137.40, Est GFR (MDRD) Af Amer 145, Est GFR (MDRD) Non-Af 120, BUN/Creatinine Ratio 9.7 L, Glucose 190 H, Calcium 7.2 L, Total Bilirubin 0.30, AST 12 L, ALT 14, Alkaline Phosphatase 94, Total Protein 4.9 L, Albumin 1.7 L, Globulin 3.2, Albumin/Globulin Ratio 0.5 L 07/15/21 18:52: WBC 26.0 H, RBC 2.69 L, Hgb 8.0 L, Hct 24.6 L, MCV 91.4 D, MCH 29.7, MCHC 32.5, RDW Std Deviation 50.1 H, RDW Coeff of Della 15.0 H, Plt Count 147 L, MPV 9.5 07/15/21 18:52: PT 17.9 H, INR 1.6, APTT 27.7, Fibrinogen 149 L 07/15/21 18:52: Sodium 143, Potassium 5.6 H, Chloride 114 H, Carbon Dioxide 21.0, Anion Gap 8, BUN 7, Creatinine 0.72, Estim Creat Clear Calc 118.31, Est GFR (MDRD) Af Amer 121, Est GFR (MDRD) Non-Af 100, BUN/Creatinine Ratio 9.7 L, Glucose 206 H, Calcium 5.9 L* 07/15/21 20:29: POC Glucose 220 H
[2021-07-16] MEDS: Acetaminophen 500 MG Tablet 1000 MG PO ×5 (00:10→23:25)
[2021-07-16] MEDS: Ondansetron 4 MG/2 ML Vial IV (00:54)
[2021-07-16] MEDS: 0.9% Saline Lock 10 ML Syringe IV ×4 (00:54→11:21)
[2021-07-16 01:08] LABS: Hematocrit 21.4 % (37-47); Hemoglobin 7.1 g/dL (12.0-15.0); Mean Corp Hgb Conc 33.2 g/dL (32-36); Mean Corpuscular Hgb 29.8 pg (27.0-32.0); Mean Corpuscular Volume 89.9 fL (81-99); Mean Platelet Vol. 9.8 fl (6.2-12.0); Platelet Count 155 K/mm3 (150-450); RBC Distribution Width CV 14.9 % (11.6-14.6); RBC Distribution Width SD 48.6 fl (35.1-43.9); Red Blood Count 2.38 M/mm3 (4.2-5.4); White Blood Count 21.6 K/mm3 (4.4-11.0)
--- NOTE | 2021-07-16 01:11 | PN.HOSP_ITS ---
Subjective Subjective Patient is and hysterectomy of a postop day 1 following placenta previa with continuous bleeding. For 24 hours (07/15/2021) patient has received 5 units of blood and packed red blood cells. Also patient has received fresh frozen plasma. Her potassium was elevated at 5.6. Her calcium was low at 5.9 and she received calcium x2 times. Because of hypotension and electrolyte imbalance internal medicine service has been consulted. Patient complains of a frontal headache. She describes the headache as a tingling sensation. She also reports a tingling sensation of her right ear. Patient is breast-feeding. Of concern patient reported that her mother had a stroke when her mother was in her 20s. Objective Data Objective Data Vital Signs: Vital Signs Temp Pulse Resp BP Pulse Ox 97.9 F 124 H 18 110/53 L 100 07/15/21 23:30 07/16/21 00:45 07/16/21 00:45 07/16/21 00:45 07/16/21 00:45 Oxygen Delivery Method Room Air Weight: 108.3 kg Body Mass Index (BMI) 35.2 Intake & Output: Intake and Output for Last 24 Hours 07/14/21 07/15/21 07/16/21 23:59 23:59 23:59 Intake Total 29184.36 / 17932.36 120 / 120 Output Total 1880 / 1880 125 / 125 Balance 8812.36 / 8812.36 -5 / -5 Lab / Micro Data Result Diagrams: 07/16/21 00:10 07/16/21 00:10 Labs: Laboratory Results - last 24 hr 07/14/21 09:48: Blood Type AB POSITIVE, Antibody Screen POSITIVE H, Antibody Identification ANTI-K, Crossmatch See Detail 07/14/21 09:52: Crossmatch See Detail 07/14/21 09:52: Crossmatch See Detail 07/14/21 09:52: Crossmatch See Detail 07/15/21 05:20: WBC 17.1 H, RBC 3.77 L, Hgb 10.9 L, Hct 32.5 L, MCV 86.2, MCH 28.9, MCHC 33.5, RDW Std Deviation 45.7 H, RDW Coeff of Della 14.6, Plt Count 330, MPV 9.4, Immature Gran % (Auto) 2.300 H, Neut % (Auto) 71.6 H, Lymph % (Auto) 17.8 L, [place] % (Auto) 7.2, Eos % (Auto) 0.6, Baso % (Auto) 0.5, Absolute Neuts (auto) 12.2 H, Absolute Lymphs (auto) 3.03, Nucleated RBC % 0 07/15/21 05:36: POC Glucose 130 H 07/15/21 05:40: Urine Opiates Screen NEGATIVE, Urine Methadone Screen NEGATIVE, Ur Barbiturates Screen NEGATIVE, Ur Phencyclidine Scrn NEGATIVE, Ur Amphetamines Screen NEGATIVE, U Methamphetamin-MDMA NEGATIVE, U Benzodiazepines Scrn NEGATIVE, Urine Cocaine Screen NEGATIVE, U Cannabinoids Screen NEGATIVE, Ur Drug Screen Comment 07/15/21 08:42: Hgb 8.1 L 07/15/21 08:42: PT 14.7, INR 1.2, APTT 24.1, Fibrinogen 280 07/15/21 14:05: WBC 26.9 H, RBC 3.25 L, Hgb 9.4 L, Hct 27.9 L, MCV 85.8, MCH 28.9, MCHC 33.7, RDW Std Deviation 45.1 H, RDW Coeff of Della 14.5, Plt Count 236, MPV 9.3 07/15/21 14:15: PT 15.4 H, INR 1.3, APTT 25.3, Fibrinogen 224 07/15/21 14:15: Sodium 143, Potassium 3.4 L, Chloride 111 H, Carbon Dioxide 23.0, Anion Gap 9, BUN 6 L, Creatinine 0.62, Estim Creat Clear Calc 137.40, Est GFR (MDRD) Af Amer 145, Est GFR (MDRD) Non-Af 120, BUN/Creatinine Ratio 9.7 L, Glucose 190 H, Calcium 7.2 L, Total Bilirubin 0.30, AST 12 L, ALT 14, Alkaline Phosphatase 94, Total Protein 4.9 L, Albumin 1.7 L, Globulin 3.2, Albumin/Globulin Ratio 0.5 L 07/15/21 18:52: WBC 26.0 H, RBC 2.69 L, Hgb 8.0 L, Hct 24.6 L, MCV 91.4 D, MCH 29.7, MCHC 32.5, RDW Std Deviation 50.1 H, RDW Coeff of Della 15.0 H, Plt Count 147 L, MPV 9.5 07/15/21 18:52: PT 17.9 H, INR 1.6, APTT 27.7, Fibrinogen 149 L 07/15/21 18:52: Sodium 143, Potassium 5.6 H, Chloride 114 H, Carbon Dioxide 21.0, Anion Gap 8, BUN 7, Creatinine 0.72, Estim Creat Clear Calc 118.31, Est GFR (MDRD) Af Amer 121, Est GFR (MDRD) Non-Af 100, BUN/Creatinine Ratio 9.7 L, Glucose 206 H, Calcium 5.9 L* 07/15/21 20:29: POC Glucose 220 H 07/16/21 00:10: WBC 21.6 H, RBC 2.38 L, Hgb 7.1 L, Hct 21.4 L, MCV 89.9, MCH 29.8, MCHC 33.2, RDW Std Deviation 48.6 H, RDW Coeff of Della 14.9 H, Plt Count 155, MPV 9.8 Physical Exam Narrative Physical exam: General: Well-nourished, well-developed. Head: Normocephalic, atraumatic, no tenderness Eyes: PERRLA, EOMI ENT, no trauma, moist mucous membranes, no rhinorrhea Neck: Nontender, full range of motion, no spinal tenderness, deformities, step- off CVS: Regular rate and rhythm. S1-S2 present. No murmur, gallop or rub. Respiratory : clear to auscultation bilaterally, chest wall nontender, no wheezing Abdomen: Soft, nontender, nondistended, normal bowel sounds, no masses : Deferred Back: Nontender, no CVA tenderness, no midline spinal tenderness, deformities, step-offs Extremities: Nontender full range of motion, no trauma Skin: Normal color, no trauma, abrasions Neuro: Alert, oriented, cranial nerves II through XII grossly intact. Strength 5 out of 5 throughout. No dysmetria with [id number] test. Sensation changes at right arm. Psychiatry: Normal mood. Normal affect. Not depressed. Not anxious. Assessment & Plan Assessment/Plan (1) ABLA (acute blood loss anemia): (2) Hypotension: QUALIFIERS: Hypotension type: postprocedural hypotension Qualified Code(s): I95.81 - Postprocedural hypotension (3) Hyperkalemia: (4) Hypocalcemia: PLAN: Acute blood loss anemia Labs reviewed showed INR of 1.6. PT 17.9, APTT 27.7; Fibrinogen low at 149. Trend PT, INR, PTT and fibrinogen level. Platelet is low normal to normal; a considerable decrease from baseline. Received 5 units of packed red blood cells on 07/15/2021. Repeat hemoglobin is 7.1. Order to transfuse 1 units of held blood. Trend CBC. Agree with normal saline at 50 mL's per hour. Headaches Likely secondary to acute blood loss anemia. Discussed Maxalt with patient. Patient is breast feeding and worried about taking other medications including Maxalt. Not enough studies on Maxalt per literature. In the past patient did not take prescribed Imitrex because of vasoconstriction per literature. Continue Tylenol. If unbearable patient can try Maxalt. Maxalt ordered. If symptoms persist consider imaging. Hypotension Acute secondary to acute blood loss anemia. Management as above. Trend BP Hyperkalemia Potassium 5.6. Repeat is normal. Trend CMP. Hypocalcemia Chelation from blood could be contributing. Repeat calcium gluconate ordered and hysterectomy Post op day 1 Agrees with antibiotics Management by primary Non-anion gap metabolic acidosis Bicarbonate of 19. Anion gap of 10. Could be secondary to hyperchloremia from IV fluids. Trend CMP. Charges/Coding Visit Charges Inpatient E&M: 68793 Subs Hosp L3
[2021-07-16 01:22] LABS: ALB/GLOB Ratio 0.5 RATIO (0.9-2.4); AST(SGOT) 15 U/L (15-37); Alanine Aminotransfer ALT/SGPT 9 U/L (13-56); Albumin, Serum 1.1 g/dL (3.2-5.0); Alkaline Phosphatase 61 U/L (45-117); Anion Gap 10 (5-15); BUN 8 mg/dL (7-18); BUN/Creat Ratio 9.4 RATIO (10-20); Calcium,Total 6.3 mg/dL (8.5-10.1); Chloride 111 mmol/L (98-107); Creatinine, Serum 0.85 mg/dL (0.55-1.02); EST Glomerular Filtration Rate 83 mL/min (>60); Est Glom Filt Rate - Afr Amer 100 mL/min (>60); Estimated Creatinine Clearance 100.22 ml/min; Globulin 2.3 g/dL (2.2-4.2); Glucose 212 mg/dL (74-106); Potassium 4.1 mmol/L (3.5-5.1); Protein, Total 3.4 g/dL (6.4-8.2); Sodium Level 140 mmol/L (136-145)
--- NOTE | 2021-07-16 01:59 | NURSING ---
Blood completed before returning from PACU. Not given by this RN.
--- NOTE | 2021-07-16 03:22 | NURSING ---
right hand with calcium infusing pt reports is burning. ring finger and iv site is reddened. the Infusion was stopped charge nurse notified. will notify hospitalist.
--- NOTE | 2021-07-16 03:25 | NURSING ---
paged hospitalist regarding pts IV with calcium infusion.
--- NOTE | 2021-07-16 03:39 | NURSING ---
Hospitalist called back and notified of iv calcium infusion dc'd d/t pts iv burning with reddened and purple around iv site and down her ring finger, she also has numbness to that finger. order to use warm or cold compresses to the area and monitor for improvement.
--- NOTE | 2021-07-16 03:57 | NURSING ---
Warm compress placed on IV site to right hand.
--- NOTE | 2021-07-16 04:08 | NURSING ---
Call Placed to Hospitalist after huddling with charge nurse and supervisor [employer]. New order for hyaluronidase received.
[2021-07-16] MEDS: HYDROmorphone 1 MG/ML Syringe IV ×2 (04:39→08:04)
--- NOTE | 2021-07-16 05:05 | NURSING ---
Hospitalist called RN requesting an update on pt. Rn reports she is feeling better since having the blood transfused, headache is improved, pt did receive 1mg of dilaudid. Rn received parameters of when to call MD regarding lab work. Hand improving after local medication given.
[2021-07-16] MEDS: 0.9% Normal Saline 1,000 ML 50 ML IV (05:47)
[2021-07-16 06:11] LABS: Hematocrit 21.9 % (37-47); Hemoglobin 7.4 g/dL (12.0-15.0); Mean Corp Hgb Conc 33.8 g/dL (32-36); Mean Corpuscular Hgb 30.2 pg (27.0-32.0); Mean Corpuscular Volume 89.4 fL (81-99); Mean Platelet Vol. 9.7 fl (6.2-12.0); Platelet Count 134 K/mm3 (150-450); RBC Distribution Width CV 14.8 % (11.6-14.6); RBC Distribution Width SD 48.4 fl (35.1-43.9); Red Blood Count 2.45 M/mm3 (4.2-5.4); White Blood Count 16.9 K/mm3 (4.4-11.0)
[2021-07-16 06:30] LABS: Anion Gap 8 (5-15); BUN 7 mg/dL (7-18); BUN/Creat Ratio 10.2 RATIO (10-20); Calcium,Total 6.9 mg/dL (8.5-10.1); Chloride 109 mmol/L (98-107); Creatinine, Serum 0.69 mg/dL (0.55-1.02); EST Glomerular Filtration Rate 106 mL/min (>60); Est Glom Filt Rate - Afr Amer 129 mL/min (>60); Estimated Creatinine Clearance 123.46 ml/min; Glucose 132 mg/dL (74-106); Potassium 3.7 mmol/L (3.5-5.1); Sodium Level 139 mmol/L (136-145)
[2021-07-16 06:31] LABS: International Normalized Ratio 1.2; Partial Thromboplast Time 27.3 Seconds (24.1-36.2); Prothrombin Time (Protime)PT. 14.6 SECONDS (11.7-14.9)
[2021-07-16 06:32] LABS: Fibrinogen 249 mg/dl (203-444)
--- NOTE | 2021-07-16 07:02 | NURSING ---
call placed to Hospitalist for report of lab work
--- NOTE | 2021-07-16 07:05 | NURSING ---
Hospitalist updated on labs and new order for 1 unit of PRBC and H&H 1 hour after blood infused.
[2021-07-16] MEDS: Cefazolin 1 GM/50 ML BAG IV ×3 (07:38→23:04)
--- NOTE | 2021-07-16 08:10 | NURSING ---
0815 TAVIA drain intact draining serosanguineous fluid. Dressing changed. Dr Andrew in room to assess pt progress. Verbal order received not to remove rivera catheter.
--- NOTE | 2021-07-16 08:27 | PN.URO_ITS ---
Subjective Subjective Patient is awake and alert, oriented x3. Feeling so much better today. Objective Data Objective Data Vital Signs: Vital Signs Temp Pulse Resp BP Pulse Ox 98.4 F 91 16 109/62 98 07/16/21 08:15 07/16/21 08:15 07/16/21 08:15 07/16/21 08:15 07/16/21 08:15 Oxygen Delivery Method Room Air Weight: 108.3 kg Body Mass Index (BMI) 35.2 Intake & Output: Intake and Output for Last 24 Hours 07/14/21 07/15/21 07/16/21 23:59 23:59 23:59 Intake Total 51179.11 / 28885.11 976.19 / 976.19 Output Total 1880 / 1880 1625 / 1625 Balance 9239.11 / 9239.11 -648.81 / -648.81 Lab / Micro Data Result Diagrams: 07/16/21 05:37 07/16/21 05:37 Labs: Laboratory Results - last 24 hr 07/14/21 09:48: Blood Type AB POSITIVE, Antibody Screen POSITIVE H, Antibody Identification ANTI-K, Crossmatch See Detail 07/14/21 09:52: Crossmatch See Detail 07/14/21 09:52: Crossmatch See Detail 07/14/21 09:52: Crossmatch See Detail 07/15/21 08:42: Hgb 8.1 L 07/15/21 08:42: PT 14.7, INR 1.2, APTT 24.1, Fibrinogen 280 07/15/21 14:05: WBC 26.9 H, RBC 3.25 L, Hgb 9.4 L, Hct 27.9 L, MCV 85.8, MCH 28.9, MCHC 33.7, RDW Std Deviation 45.1 H, RDW Coeff of Della 14.5, Plt Count 236, MPV 9.3 07/15/21 14:15: PT 15.4 H, INR 1.3, APTT 25.3, Fibrinogen 224 07/15/21 14:15: Sodium 143, Potassium 3.4 L, Chloride 111 H, Carbon Dioxide 23.0, Anion Gap 9, BUN 6 L, Creatinine 0.62, Estim Creat Clear Calc 137.40, Est GFR (MDRD) Af Amer 145, Est GFR (MDRD) Non-Af 120, BUN/Creatinine Ratio 9.7 L, Glucose 190 H, Calcium 7.2 L, Total Bilirubin 0.30, AST 12 L, ALT 14, Alkaline Phosphatase 94, Total Protein 4.9 L, Albumin 1.7 L, Globulin 3.2, Albumin/Globulin Ratio 0.5 L 07/15/21 18:52: WBC 26.0 H, RBC 2.69 L, Hgb 8.0 L, Hct 24.6 L, MCV 91.4 D, MCH 29.7, MCHC 32.5, RDW Std Deviation 50.1 H, RDW Coeff of Della 15.0 H, Plt Count 147 L, MPV 9.5 07/15/21 18:52: PT 17.9 H, INR 1.6, APTT 27.7, Fibrinogen 149 L 07/15/21 18:52: Sodium 143, Potassium 5.6 H, Chloride 114 H, Carbon Dioxide 21.0, Anion Gap 8, BUN 7, Creatinine 0.72, Estim Creat Clear Calc 118.31, Est GFR (MDRD) Af Amer 121, Est GFR (MDRD) Non-Af 100, BUN/Creatinine Ratio 9.7 L, Glucose 206 H, Calcium 5.9 L* 07/15/21 20:29: POC Glucose 220 H 07/16/21 00:10: WBC 21.6 H, RBC 2.38 L, Hgb 7.1 L, Hct 21.4 L, MCV 89.9, MCH 29.8, MCHC 33.2, RDW Std Deviation 48.6 H, RDW Coeff of Della 14.9 H, Plt Count 155, MPV 9.8 07/16/21 00:10: Sodium 140, Potassium 4.1, Chloride 111 H, Carbon Dioxide 19.0 L , Anion Gap 10, BUN 8, Creatinine 0.85, Estim Creat Clear Calc 100.22, Est GFR (MDRD) Af Amer 100, Est GFR (MDRD) Non-Af 83, BUN/Creatinine Ratio 9.4 L, Glucose 212 H, Calcium 6.3 L*, Total Bilirubin 0.20, AST 15, ALT 9 L, Alkaline Phosphatase 61, Total Protein 3.4 L, Albumin 1.1 L, Globulin 2.3, Albumin/Globulin Ratio 0.5 L 07/16/21 05:37: WBC 16.9 H, RBC 2.45 L, Hgb 7.4 L, Hct 21.9 L, MCV 89.4, MCH 30.2, MCHC 33.8, RDW Std Deviation 48.4 H, RDW Coeff of Della 14.8 H, Plt Count 134 L, MPV 9.7 07/16/21 05:37: PT 14.6, INR 1.2, APTT 27.3, Fibrinogen 249 07/16/21 05:37: Sodium 139, Potassium 3.7, Chloride 109 H, Carbon Dioxide 22.0, Anion Gap 8, BUN 7, Creatinine 0.69, Estim Creat Clear Calc 123.46, Est GFR (MDRD) Af Amer 129, Est GFR (MDRD) Non-Af 106, BUN/Creatinine Ratio 10.2, Glucose 132 H, Calcium 6.9 L Physical Exam Narrative Alert, oriented. Comfortable. Abdomen is soft appropriately tender nondistended. TAVIA drain is putting out serosanguineous fluid, minimal. Pierre catheter is draining clear yellow. Assessment & Plan Assessment/Plan (1) Intraoperative bladder injury: PLAN: Continue TAVIA today Continue Pierre catheter, home with Pierre catheter Plan will be for cystogram in radiology at the end of next week, my office will make arrangements Continue antibiotic coverage until the TAVIA drain is removed Continue supportive care
--- NOTE | 2021-07-16 09:28 | PN.OBGYN_ITS ---
Subjective Subjective Pain is minimal this morning, well controlled. Headache resolved. No flatus yet, not yet out of bed. She is pumping. Objective Data Objective Data Vital Signs: Vital Signs Temp Pulse Resp BP Pulse Ox 98.4 F 94 16 112/61 98 07/16/21 08:15 07/16/21 08:28 07/16/21 08:28 07/16/21 08:28 07/16/21 08:28 Oxygen Delivery Method Room Air Weight: 108.3 kg Body Mass Index (BMI) 35.2 Intake & Output: Intake and Output for Last 24 Hours 07/14/21 07/15/21 07/16/21 23:59 23:59 23:59 Intake Total 74993.11 / 06786.11 976.19 / 976.19 Output Total 1880 / 1880 1625 / 1625 Balance 9239.11 / 9239.11 -648.81 / -648.81 Lab / Micro Data Result Diagrams: 07/16/21 05:37 07/16/21 05:37 Labs: Laboratory Results - last 24 hr 07/14/21 09:48: Blood Type AB POSITIVE, Antibody Screen POSITIVE H, Antibody Identification ANTI-K, Crossmatch See Detail 07/14/21 09:52: Crossmatch See Detail 07/14/21 09:52: Crossmatch See Detail 07/14/21 09:52: Crossmatch See Detail 07/15/21 08:42: PT 14.7, INR 1.2, APTT 24.1, Fibrinogen 280 07/15/21 14:05: WBC 26.9 H, RBC 3.25 L, Hgb 9.4 L, Hct 27.9 L, MCV 85.8, MCH 28.9, MCHC 33.7, RDW Std Deviation 45.1 H, RDW Coeff of Della 14.5, Plt Count 236, MPV 9.3 07/15/21 14:15: PT 15.4 H, INR 1.3, APTT 25.3, Fibrinogen 224 07/15/21 14:15: Sodium 143, Potassium 3.4 L, Chloride 111 H, Carbon Dioxide 23.0, Anion Gap 9, BUN 6 L, Creatinine 0.62, Estim Creat Clear Calc 137.40, Est GFR (MDRD) Af Amer 145, Est GFR (MDRD) Non-Af 120, BUN/Creatinine Ratio 9.7 L, Glucose 190 H, Calcium 7.2 L, Total Bilirubin 0.30, AST 12 L, ALT 14, Alkaline Phosphatase 94, Total Protein 4.9 L, Albumin 1.7 L, Globulin 3.2, Albumin/Globulin Ratio 0.5 L 07/15/21 18:52: WBC 26.0 H, RBC 2.69 L, Hgb 8.0 L, Hct 24.6 L, MCV 91.4 D, MCH 29.7, MCHC 32.5, RDW Std Deviation 50.1 H, RDW Coeff of Della 15.0 H, Plt Count 147 L, MPV 9.5 07/15/21 18:52: PT 17.9 H, INR 1.6, APTT 27.7, Fibrinogen 149 L 07/15/21 18:52: Sodium 143, Potassium 5.6 H, Chloride 114 H, Carbon Dioxide 21.0, Anion Gap 8, BUN 7, Creatinine 0.72, Estim Creat Clear Calc 118.31, Est GFR (MDRD) Af Amer 121, Est GFR (MDRD) Non-Af 100, BUN/Creatinine Ratio 9.7 L, Glucose 206 H, Calcium 5.9 L* 07/15/21 20:29: POC Glucose 220 H 07/16/21 00:10: WBC 21.6 H, RBC 2.38 L, Hgb 7.1 L, Hct 21.4 L, MCV 89.9, MCH 29.8, MCHC 33.2, RDW Std Deviation 48.6 H, RDW Coeff of Della 14.9 H, Plt Count 155, MPV 9.8 07/16/21 00:10: Sodium 140, Potassium 4.1, Chloride 111 H, Carbon Dioxide 19.0 L , Anion Gap 10, BUN 8, Creatinine 0.85, Estim Creat Clear Calc 100.22, Est GFR (MDRD) Af Amer 100, Est GFR (MDRD) Non-Af 83, BUN/Creatinine Ratio 9.4 L, Glucose 212 H, Calcium 6.3 L*, Total Bilirubin 0.20, AST 15, ALT 9 L, Alkaline Phosphatase 61, Total Protein 3.4 L, Albumin 1.1 L, Globulin 2.3, Albu min/Globulin Ratio 0.5 L 07/16/21 05:37: WBC 16.9 H, RBC 2.45 L, Hgb 7.4 L, Hct 21.9 L, MCV 89.4, MCH 30.2, MCHC 33.8, RDW Std Deviation 48.4 H, RDW Coeff of Della 14.8 H, Plt Count 134 L, MPV 9.7 07/16/21 05:37: PT 14.6, INR 1.2, APTT 27.3, Fibrinogen 249 07/16/21 05:37: Sodium 139, Potassium 3.7, Chloride 109 H, Carbon Dioxide 22.0, Anion Gap 8, BUN 7, Creatinine 0.69, Estim Creat Clear Calc 123.46, Est GFR (MDRD) Af Amer 129, Est GFR (MDRD) Non-Af 106, BUN/Creatinine Ratio 10.2, Glucose 132 H, Calcium 6.9 L ROS Constitutional Constitutional: Reports fatigue; Denies chills or fever(s) Cardiovascular Cardiovascular: Denies chest pain or edema Respiratory/Chest Respiratory/Chest: Denies cough or dyspnea Gastrointestinal Gastrointestinal: Denies abdominal pain, nausea or vomiting Physical Exam Narrative GEN - NAD, AAO x 3 HEENT - atraumatic, normocephalic, anicteric CV - RRR, no m/r/g ABD - soft, nontender, nondistended, +bowel sounds, incisional dressing c/d/i, TAVIA drain with serosanguinous fluid - clear urine in rivera, minimal old blood on pad <25% saturation EXT - no calf tenderness, trace LE edema Assessment & Plan (1) Status post hysterectomy: PLAN: Continue antibiotics x 24h postop (2) Delivery by section: PLAN: Pumping/ (3) ABLA (acute blood loss anemia): PLAN: 7u prbc thus far, 8u ordered per Medicine Serial H/H Hemodynamically stable with normalization of vitals Fe infusion (4) Hypocalcemia: PLAN: Post calcium gluconate x 2 Corrected Ca 8.2mg/dL Will observe (5) Hyperkalemia: (6) Intraoperative bladder injury: COMMENT: post repair PLAN: Maintain catheter with outpatient follow up and outpatinet imaging per Dr. Andrew
[2021-07-16] MEDS: DiphenhydrAMINE 50 MG/ML Syringe 25 MG IV (11:00)
[2021-07-16] MEDS: Docusate Sodium 100 MG Capsule PO ×2 (11:26→23:04)
[2021-07-16] MEDS: oxyCODONE 5 MG Tablet PO ×3 (11:26→19:41)
[2021-07-16] MEDS: Ibuprofen 600 MG Tablet PO ×3 (11:50→23:24)
--- NOTE | 2021-07-16 12:53 | NURSING ---
1250 patient dangling on side of bed. able to stand to change peripad and put on underwear. patient reported feeling slightly nauseous and dizzy and lightheaded. Pt back to dangle position after ~1 minute of standing. Reports feeling of dizziness subsided and continues to dangle at bedside.
[2021-07-16 14:15] LABS: Hematocrit 23.5 % (37-47)
--- NOTE | 2021-07-16 14:29 | NURSING ---
1330-patient able to stand up and get to W/C. To [facility] to see infant. at 1415 back to room to rest. 1430 Dr Nely Ramirez Called with H/H results. Plan to hold 8th unit of blood for now and monitor Sx accordingly. pt tolerating pain with OxyIR, Motrin and Tylenol. Dr BURROUGHS aware and plan to monitor.
[2021-07-16 23:49] LABS: Hematocrit 21.7 % (37-47); Hemoglobin 7.3 g/dL (12.0-15.0)
[2021-07-17] VITALS (7 sets, daily range): BP systolic 109–143; BP diastolic 48–79; PULSE 83–109; RESP 16–18; TEMP 36.6–37.1; O2SAT 96–98
[2021-07-17] MEDS: oxyCODONE 5 MG Tablet PO ×5 (02:49→21:08)
[2021-07-17 05:48] LABS: Hematocrit 23.5 % (37-47); Hemoglobin 8.1 g/dL (12.0-15.0); Mean Corp Hgb Conc 34.5 g/dL (32-36); Mean Corpuscular Hgb 29.8 pg (27.0-32.0); Mean Corpuscular Volume 86.4 fL (81-99); Mean Platelet Vol. 9.3 fl (6.2-12.0); Platelet Count 141 K/mm3 (150-450); RBC Distribution Width CV 16.4 % (11.6-14.6); RBC Distribution Width SD 51.6 fl (35.1-43.9); Red Blood Count 2.72 M/mm3 (4.2-5.4); White Blood Count 17.2 K/mm3 (4.4-11.0)
[2021-07-17] MEDS: Acetaminophen 500 MG Tablet 1000 MG PO ×3 (06:05→18:34)
[2021-07-17] MEDS: Ibuprofen 600 MG Tablet PO ×3 (06:05→18:34)
[2021-07-17] MEDS: Cefazolin 1 GM/50 ML BAG IV ×2 (07:09→15:42)
[2021-07-17] MEDS: 0.9% Saline Lock 10 ML Syringe IV ×3 (08:03→16:12)
[2021-07-17 09:46] LABS: ALB/GLOB Ratio 0.4 RATIO (0.9-2.4); AST(SGOT) 12 U/L (15-37); Alanine Aminotransfer ALT/SGPT 14 U/L (13-56); Albumin, Serum 1.4 g/dL (3.2-5.0); Alkaline Phosphatase 66 U/L (45-117); Anion Gap 5 (5-15); BUN 6 mg/dL (7-18); BUN/Creat Ratio 9.9 RATIO (10-20); Calcium,Total 7.4 mg/dL (8.5-10.1); Chloride 111 mmol/L (98-107); Creatinine, Serum 0.61 mg/dL (0.55-1.02); EST Glomerular Filtration Rate 122 mL/min (>60); Est Glom Filt Rate - Afr Amer 147 mL/min (>60); Estimated Creatinine Clearance 139.65 ml/min; Globulin 3.3 g/dL (2.2-4.2); Glucose 135 mg/dL (74-106); Potassium 3.7 mmol/L (3.5-5.1); Protein, Total 4.7 g/dL (6.4-8.2); Sodium Level 141 mmol/L (136-145)
--- NOTE | 2021-07-17 10:07 | PN.OBGYN_ITS ---
Subjective Subjective Passing flatus, tolerates regular diet without nausea or vomiting. Gely is sore this morning, she attributes this to walking and trips to the [facility]. Pain is controlled with medication. No bowel movement yet. She continues pumping and is getting colostrum now. She denies chest pain, sob, lightheadedness, dizziness, palpitations. She had a headache overnight, now resolved. Objective Data Objective Data Vital Signs: Vital Signs Temp Pulse Resp BP Pulse Ox 98.5 F 105 H 18 127/71 H 98 07/17/21 08:15 07/17/21 08:15 07/17/21 08:15 07/17/21 08:15 07/17/21 08:15 Oxygen Delivery Method Room Air Weight: 108.3 kg Body Mass Index (BMI) 35.2 Intake & Output: Intake and Output for Last 24 Hours 07/15/21 07/16/21 07/17/21 23:59 23:59 23:59 Intake Total 44807.11 / 46507.11 1197.86 / 1197.86 450 / 450 Output Total 1880 / 1880 5225 / 5225 1265 / 1265 Balance 9239.11 / 9239.11 -4027.14 / -4027.14 -815 / -815 Lab / Micro Data Result Diagrams: 07/17/21 05:40 07/17/21 09:10 Labs: Laboratory Results - last 24 hr 07/14/21 09:52: Crossmatch See Detail 07/14/21 09:52: Crossmatch See Detail 07/14/21 09:52: Crossmatch See Detail 07/16/21 14:10: Hgb 8.0 L, Hct 23.5 L 07/16/21 23:25: Hgb 7.3 L, Hct 21.7 L 07/17/21 05:40: WBC 17.2 H, RBC 2.72 L, Hgb 8.1 L, Hct 23.5 L, MCV 86.4, MCH 29.8, MCHC 34.5, RDW Std Deviation 51.6 H, RDW Coeff of Della 16.4 H, Plt Count 141 L, MPV 9.3 07/17/21 09:10: Sodium 141, Potassium 3.7, Chloride 111 H, Carbon Dioxide 25.0, Anion Gap 5, BUN 6 L, Creatinine 0.61, Estim Creat Clear Calc 139.65, Est GFR (MDRD) Af Amer 147, Est GFR (MDRD) Non-Af 122, BUN/Creatinine Ratio 9.9 L, Glucose 135 H, Calcium 7.4 L, Total Bilirubin 0.20, AST 12 L, ALT 14, Alkaline Phosphatase 66, Total Protein 4.7 L, Albumin 1.4 L, Globulin 3.3, Albumin/Globulin Ratio 0.4 L Physical Exam Const alert, oriented x3 and no apparent distress Resp normal respiratory effort, normal air movement and clear to auscultation bilaterally Cardio regular rate, regular rhythm, S1 normal heart sound and S2 normal heart sound GI normal to inspection, nondistended, normoactive bowel sounds, soft to palpation, non-tender and non-distended GI Narrative: incisional dressing c/d/i, TAVAI drain with serosanguinous drainage - drain stripped Extremity no calf tenderness Extremity Narrative: trace LE edema; right hand with edema w/o erythema, no crepitous or fluctuance Assessment & Plan (1) Delivery by section: PLAN: Pumping (2) Status post hysterectomy: PLAN: Routine postop care (3) ABLA (acute blood loss anemia): PLAN: Post 8u prbc, Fe infusion Hemodynamically stable, no evidence of active bleed, benign abdomen and TAVIA output decreasing Repeat CBC in am (4) Hyperkalemia: PLAN: resolved (5) IV infiltrate: QUALIFIERS: Encounter type: subsequent encounter Qualified Code(s ): T80.1XXD - Vascular complications following infusion, transfusion and therapeutic injection, subsequent encounter COMMENT: Kinza garduno PLAN: Associated impending skin necrosis resolved, pt post hyaluronidase injection Cool compress
[2021-07-17] MEDS: Docusate Sodium 100 MG Capsule PO ×2 (11:18→22:45)
--- NOTE | 2021-07-17 16:34 | PCM.PN.GU ---
Subjective Subjective Sitting up at bedside. Feeling well. No complaints. Objective Data Objective Data Vital Signs: Vital Signs Temp Pulse Resp BP Pulse Ox 98.7 F 89 16 109/48 L 96 07/17/21 14:08 07/17/21 14:08 07/17/21 14:08 07/17/21 14:08 07/17/21 14:08 Oxygen Delivery Method Room Air Weight: 108.3 kg Body Mass Index (BMI) 35.2 Intake & Output: Intake and Output for Last 24 Hours 07/15/21 07/16/21 07/17/21 23:59 23:59 23:59 Intake Total 20964.11 / 64348.11 1197.86 / 1197.86 500 / 500 Output Total 1880 / 1880 5225 / 5225 1265 / 1265 Balance 9239.11 / 9239.11 -4027.14 / -4027.14 -765 / -765 Lab / Micro Data Result Diagrams: 07/17/21 05:40 07/17/21 09:10 Labs: Laboratory Results - last 24 hr 07/14/21 09:52: Crossmatch See Detail 07/14/21 09:52: Crossmatch See Detail 07/14/21 09:52: Crossmatch See Detail 07/16/21 23:25: Hgb 7.3 L, Hct 21.7 L 07/17/21 05:40: WBC 17.2 H, RBC 2.72 L, Hgb 8.1 L, Hct 23.5 L, MCV 86.4, MCH 29.8, MCHC 34.5, RDW Std Deviation 51.6 H, RDW Coeff of Della 16.4 H, Plt Count 141 L, MPV 9.3 07/17/21 09:10: Sodium 141, Potassium 3.7, Chloride 111 H, Carbon Dioxide 25.0, Anion Gap 5, BUN 6 L, Creatinine 0.61, Estim Creat Clear Calc 139.65, Est GFR (MDRD) Af Amer 147, Est GFR (MDRD) Non-Af 122, BUN/Creatinine Ratio 9.9 L, Glucose 135 H, Calcium 7.4 L, Total Bilirubin 0.20, AST 12 L, ALT 14, Alkaline Phosphatase 66, Total Protein 4.7 L, Albumin 1.4 L, Globulin 3.3, Albumin/Globulin Ratio 0.4 L 07/17/21 09:10: Blood Type AB POSITIVE, Antibody Screen POSITIVE H, Antibody Identification ANTI-K, Crossmatch See Detail Physical Exam Const alert and oriented x3 General Appearance: comfortable HEENT normocephalic and head/scalp atraumatic Face and Sinus: normal facial exam Nose: external nose normal External Ear: external ears normal Mouth: lips normal Neck supple General: trachea midline Lymph Lymphatic: no lymphedema noted Chest Chest: symmetrical chest wall rise Resp normal respiratory effort, normal air movement and no retractions Effort and Inspection: able to speak in complete sentences Cardio regular rate Narrative: urine clear yellow in rivera TAVIA with few cc of serosangiunous fluid Assessment & Plan Assessment/Plan (1) Intraoperative bladder injury: PLAN: If TAVIA stays minimal overnight, I am ok with removal tomorrow. My office will make arrangements for cystogram and rivera removal in my office at end of next week Will be available if needed, please call.
--- NOTE | 2021-07-17 18:51 | CM.ED ---
BANG Note Referral Source: [facility] BANG Referral Reason: Educate on Post Depression SW spoke to patient's RN who said that patient is doing well. She said that FOB is supportive. RN has no concerns regarding patient. SW met with patient and fob. She reports no previous Post Depression. Patient discussed the emergency surgery but indicated she is taking little steps which she said will be pumping breast milk for the nb in a few minutes. Patient said that her mother in law brought thanksgiving meal. Patient said that her brought her esqueda today which made me cry like a baby. Patient is very optimistic and is able to identify positives in her life. SW educated patient on Post Depression and gave her PPD handouts that included phone numbers for PPD support, web sites for PPD, counseling agencies, [facility] and handout titled 10 facts on anxiety and depression in and post . Patient and fob voiced no concerns or issues. SW remains available. Lacey LO
[2021-07-18] MEDS: Acetaminophen 500 MG Tablet 1000 MG PO ×4 (00:28→18:15)
[2021-07-18] MEDS: Cefazolin 1 GM/50 ML BAG IV ×2 (00:29→07:55)
[2021-07-18] MEDS: Ibuprofen 600 MG Tablet PO ×4 (00:29→18:14)
[2021-07-18 00:57] VITALS: BP 128/82; PULSE 84; RESP 18; TEMP 36.2
[2021-07-18] MEDS: oxyCODONE 5 MG Tablet PO ×4 (03:00→20:11)
[2021-07-18 06:44] LABS: Hematocrit 22.6 % (37-47); Hemoglobin 7.5 g/dL (12.0-15.0); Mean Corp Hgb Conc 33.2 g/dL (32-36); Mean Corpuscular Hgb 29.2 pg (27.0-32.0); Mean Corpuscular Volume 87.9 fL (81-99); Mean Platelet Vol. 9.1 fl (6.2-12.0); POSITIVE COUNT YES; POSITIVE MORPHOLOGY YES; Platelet Count 167 K/mm3 (150-450); RBC Distribution Width CV 16.7 % (11.6-14.6); RBC Distribution Width SD 52.4 fl (35.1-43.9); Red Blood Count 2.57 M/mm3 (4.2-5.4); White Blood Count 15.1 K/mm3 (4.4-11.0)
[2021-07-18 06:45] LABS: Differential Indicated MANUAL DIFF
[2021-07-18 07:00] LABS: Myelocyte 6 % (0-0); Neutrophil-Band 1 % (0-5); Neutrophil-Segmented 66 % (47-70); Total Cells Counted 100 (MANUAL DIFF)
[2021-07-18 07:01] LABS: Eosinophil 1 % (0-5); Lymphocyte 19 % (19-41); Monocyte 7 % (0-10); Platelet Estimate ADEQUATE (ADEQ)
[2021-07-18 07:02] LABS: Absolute Neutrophil Count 10.1 X10^3/uL (2.0-7.7); Anisocytosis RARE; Microcytosis RARE
[2021-07-18 07:03] LABS: Absolute Lymphocyte Count 2.87 X10^3/uL (0.83-4.51); Lymphocyte # 2.87 X10^3/ul (0.83-4.51)
[2021-07-18] MEDS: 0.9% Saline Lock 10 ML Syringe IV ×2 (07:57→08:31)
[2021-07-18 07:58] VITALS: BP 122/72; PULSE 80; RESP 18; TEMP 37.3; O2SAT 98
--- NOTE | 2021-07-18 08:10 | NURSING ---
minimal drainage noted in abdominal TAVIA drain. serosanguineous in color
--- NOTE | 2021-07-18 09:48 | NURSING ---
Pt had several clots that were approx the size of an egg collectively, no active bleeding noted after clots came out. Pt instructed to inform nurse if she has any more gushes.
[2021-07-18] MEDS: Docusate Sodium 100 MG Capsule PO ×2 (11:37→22:37)
--- NOTE | 2021-07-18 11:57 | PCM.PN.BLA ---
Progress Note Visited patient room and patient not present. Will revisit later today.
[2021-07-18 12:39] VITALS: BP 138/80; PULSE 91; RESP 16; TEMP 37.1; O2SAT 97
--- NOTE | 2021-07-18 14:21 | PCM.PN.OB ---
Subjective Subjective Passing flatus, no bowel movement yet. Tolerating regular diet without nausea or vomiting. Reports lower extremity edema. Right hand edema improved. Denies chest pain, shortness of breath, lightheadedness, dizziness. Headache resolved. Objective Data Objective Data Vital Signs: Vital Signs Temp Pulse Resp BP Pulse Ox 97.9 F 90 16 124/78 H 98 07/19/21 04:30 07/19/21 04:30 07/19/21 04:30 07/19/21 04:30 07/19/21 04:30 Oxygen Delivery Method Room Air Weight: 108.3 kg Body Mass Index (BMI) 35.2 Intake & Output: Intake and Output for Last 24 Hours 07/17/21 07/18/21 07/19/21 23:59 23:59 23:59 Intake Total 500 / 500 100 / 100 Output Total 3195 / 3195 2477 / 2477 1574 / 1574 Balance -2695 / -2695 -2377 / -2377 -1574 / -1574 Lab / Micro Data Result Diagrams: 07/19/21 06:32 07/17/21 09:10 Labs: Laboratory Results - last 24 hr 07/19/21 06:32: WBC 11.6 H, RBC 2.63 L, Hgb 7.7 L, Hct 23.6 L, MCV 89.7, MCH 29.3, MCHC 32.6, RDW Std Deviation 53.1 H, RDW Coeff of Della 16.6 H, Plt Count 233, MPV 8.9, Neut % (Auto) Not Reportable, Absolute Neuts (auto) 7.1, Absolute Lymphs (auto) 3.94, Total Counted 100, Neutrophils % (Manual) 60, Band Neutrophils % 1, Lymphocytes % (Manual) 34, Monocytes % (Manual) 3, Eosinophils % (Manual) 1, Myelocytes % 1 H, Diff Path Review May , Platelet Estimate ADEQUATE, Hypochromasia 1+, Anisocytosis 1+ Physical Exam Const alert, oriented x3 and no apparent distress Resp normal respiratory effort, normal air movement and clear to auscultation bilaterally Cardio regular rate, regular rhythm, S1 normal heart sound and S2 normal heart sound GI normal to inspection, nondistended, normoactive bowel sounds, soft to palpation, non-tender and non-distended GI Narrative: Incisional dressing clean dry and intact, TAVIA with serosanguineous drainage. Narrative: Scant blood on pad Extremity no calf tenderness Extremity Narrative: 1+ b/l LE edema R. hand edema improved with no erythema Neuro oriented x3 and moves all extremities Assessment & Plan (1) IV infiltrate: QUALIFIERS: Encounter type: subsequent encounter Qualified Code(s): T80.1XXD - Vascular complications following infusion, transfusion and therapeutic injection, subsequent encounter COMMENT: R. hand PLAN: Resolved (2) Delivery by section: PLAN: Breast-feeding, pumping AB positive (3) Status post hysterectomy: PLAN: Routine postop care (4) ABLA (acute blood loss anemia): PLAN: Hemodynamically stable Post 8 units packed RBC H&H stable We will observe today, movement encouraged, anticipate discharge home tomorrow. (5) Intraoperative bladder injury: COMMENT: post repair PLAN: Indwelling Pierre TAVIA output continues to decrease Will plan removal prior to discharge
[2021-07-18 15:59] VITALS: BP 129/78; PULSE 89; RESP 16; TEMP 36.7; O2SAT 96
--- NOTE | 2021-07-18 19:32 | NURSING ---
Called Dr. Brown and updated her on patient having blood clots at 1800 that were the size of two 50 cent pieces, collectively. Stephanie was notified of both blood clot episodes. States to keep an eye on patient and re-draw CBC in AM; notify MD if bright red blood is noted in TAVIA drain or on pad; monitor overnight unless bright red blood noted or hemodynamic instability is efident.
[2021-07-18 20:09] VITALS: BP 136/78; PULSE 96; RESP 18; TEMP 36.9; O2SAT 98
[2021-07-19] MEDS: Acetaminophen 500 MG Tablet 1000 MG PO ×2 (00:15→06:26)
[2021-07-19] MEDS: Ibuprofen 600 MG Tablet PO ×2 (00:15→06:26)
[2021-07-19 00:17] VITALS: BP 125/70; PULSE 97; RESP 16; TEMP 36.8; O2SAT 95
[2021-07-19] MEDS: 0.9% Saline Lock 10 ML Syringe IV (00:24)
[2021-07-19] MEDS: oxyCODONE 5 MG Tablet PO ×2 (02:57→09:22)
[2021-07-19 04:30] VITALS: BP 124/78; PULSE 90; RESP 16; TEMP 36.6; O2SAT 98
[2021-07-19 06:56] LABS: Hematocrit 23.6 % (37-47); Hemoglobin 7.7 g/dL (12.0-15.0); Mean Corp Hgb Conc 32.6 g/dL (32-36); Mean Corpuscular Hgb 29.3 pg (27.0-32.0); Mean Corpuscular Volume 89.7 fL (81-99); Mean Platelet Vol. 8.9 fl (6.2-12.0); POSITIVE COUNT YES; POSITIVE MORPHOLOGY YES; Platelet Count 233 K/mm3 (150-450); RBC Distribution Width CV 16.6 % (11.6-14.6); RBC Distribution Width SD 53.1 fl (35.1-43.9); Red Blood Count 2.63 M/mm3 (4.2-5.4); White Blood Count 11.6 K/mm3 (4.4-11.0)
[2021-07-19 06:58] LABS: Differential Indicated MANUAL DIFF
[2021-07-19 07:39] LABS: Anisocytosis 1+; Eosinophil 1 % (0-5); Hypochromasia 1+; Lymphocyte 34 % (19-41); Monocyte 3 % (0-10); Myelocyte 1 % (0-0); Neutrophil-Band 1 % (0-5); Neutrophil-Segmented 60 % (47-70); Platelet Estimate ADEQUATE (ADEQ); Total Cells Counted 100 (MANUAL DIFF)
[2021-07-19 07:40] LABS: Absolute Lymphocyte Count 3.94 X10^3/uL (0.83-4.51); Absolute Neutrophil Count 7.1 X10^3/uL (2.0-7.7); Lymphocyte # 3.94 X10^3/ul (0.83-4.51); Neutrophil # 7.07 X10^3/uL (2.7-7.7)
[2021-07-19 09:15] VITALS: BP 125/73; PULSE 94; RESP 16; TEMP 36.8; O2SAT 99
--- NOTE | 2021-07-19 09:16 | PN.OBGYN_ITS ---
Subjective Subjective Pain controlled. Passing more flatus. No bowel movement yet. Denies chest pain, shortness of breath, dizziness, lightheadedness, headache. Has a good appetite. No nausea or vomiting. c/o increased lower extremity swelling. Objective Data Objective Data Vital Signs: Vital Signs Temp Pulse Resp BP Pulse Ox 97.9 F 90 16 124/78 H 98 07/19/21 04:30 07/19/21 04:30 07/19/21 04:30 07/19/21 04:30 07/19/21 04:30 Oxygen Delivery Method Room Air Weight: 108.3 kg Body Mass Index (BMI) 35.2 Intake & Output: Intake and Output for Last 24 Hours 07/17/21 07/18/21 07/19/21 23:59 23:59 23:59 Intake Total 500 / 500 100 / 100 Output Total 3195 / 3195 2477 / 2477 1574 / 1574 Balance -2695 / -2695 -2377 / -2377 -1574 / -1574 Lab / Micro Data Result Diagrams: 07/19/21 06:32 07/17/21 09:10 Labs: Laboratory Results - last 24 hr 07/19/21 06:32: WBC 11.6 H, RBC 2.63 L, Hgb 7.7 L, Hct 23.6 L, MCV 89.7, MCH 29.3, MCHC 32.6, RDW Std Deviation 53.1 H, RDW Coeff of Della 16.6 H, Plt Count 233, MPV 8.9, Neut % (Auto) Not Reportable, Absolute Neuts (auto) 7.1, Absolute Lymphs (auto) 3.94, Total Counted 100, Neutrophils % (Manual) 60, Band Neutrophils % 1, Lymphocytes % (Manual) 34, Monocytes % (Manual) 3, Eosinophils % (Manual) 1, Myelocytes % 1 H, Diff Path Review May , Platelet Estimate ADEQUATE, Hypochromasia 1+, Anisocytosis 1+ Physical Exam Const alert, oriented x3 and no apparent distress Resp normal respiratory effort, normal air movement and clear to auscultation bi laterally Cardio regular rate, regular rhythm, S1 normal heart sound and S2 normal heart sound GI normal to inspection, nondistended, normoactive bowel sounds, soft to palpation, non-tender and non-distended GI Narrative: incisional dressing c/d/i, TAVIA with serosanguinous drainage Pannal edema Extremity no calf tenderness Extremity Narrative: b/l pedal edema, nonpitting Assessment & Plan (1) Status post hysterectomy: PLAN: Routine postop care (2) Delivery by section: PLAN: /pumping Maternity care (3) ABLA (acute blood loss anemia): PLAN: Post 8u prbc, 1 u ffp prior H/H stable Plan for d/c home today (4) Intraoperative bladder injury: COMMENT: post repair PLAN: Indwelling rivera Rivera teaching today Will Remove TAVIA f/u with Dr. Andrew
[2021-07-19] MEDS: Docusate Sodium 100 MG Capsule PO (09:22)
--- NOTE | 2021-07-19 09:23 | PCM.DC.SUM ---
Providers Date of Admission: 07/15/21 Primary Care Physician: Kathi Mooney NP-[place] Consultations 07/16/21 00:35 Consult: Hospitalist Routine Consulting Provider: Mitesh Russ Reason for Consult: low bp, hemorrhage, unstable electrolytes EMERGENT Consult: Yes MD Notified: Yes Date Notified: 07/16/21 Time Notified: 00:33 Method of Notification: Provider Initiated Reason For Visit: REPEAT C SECTION Diagnosis Discharge Diagnosis (1) Status post hysterectomy: Status: Acute Code(s): Z90.710 - Acquired absence of both cervix and uterus (2) Delivery by section: Status: Acute (3) ABLA (acute blood loss anemia): Status: Acute Code(s): D62 - Acute posthemorrhagic anemia (4) Intraoperative bladder injury: Status: Acute Code(s): N99.81 - Other intraoperative complications of genitourinary system Medications at Discharge Home Medications docusate sodium [Stool Softener] 250 mg PO DAILY 07/09/21 prenat.vits,devante,kpg-ijlc-vulze 1 tab PO DAILY 07/09/21 ibuprofen 600 mg PO Q8H PRN PRN #30 tab 07/19/21 oxycodone 5 mg PO Q6H PRN PRN 7 Days #15 tab 07/19/21 Hospital Course Operations section and hysterectomy Procedures Blood transfusion (8u prbc, 1 ffp) Summary of Care Provided Hospital Course: 31yo admitted at 37 weeks gestation for scheduled section for h/o placenta previa and 2 prior sections, gestational diabetes. She had a section with intraop hemorrhage. Blood products were administered post op. She had intermittent vaginal bleeding postop refractory to medical management and underwent hysterectomy later that day. Cystotomy was identified at time of hysterectomy. An intra-op Urology consultation was obtained and the cystotomy repaired. Hospitalist consultation was obtained postoperatively. The patient received a total of 8u prbc and 1 ffp. Electrolyte abnormalities including hyperkalemia resolved. She was discharged to home on postoperative day #4. Weight / BMI Weight Weight: 108.3 kg Body Mass Index (BMI) 35.2 ABG / Lab / Microbiology Data Result Diagrams: 07/19/21 06:32 07/17/21 09:10 Laboratory: Laboratory Results - last 24 hr 07/19/21 06:32: WBC 11.6 H, RBC 2.63 L, Hgb 7.7 L, Hct 23.6 L, MCV 89.7, MCH 29.3, MCHC 32.6, RDW Std Deviation 53.1 H, RDW Coeff of Della 16.6 H, Plt Count 233, MPV 8.9, Neut % (Auto) Not Reportable, Absolute Neuts (auto) 7.1, Absolute Lymphs (auto) 3.94, Total Counted 100, Neutrophils % (Manual) 60, Band Neutrophils % 1, Lymphocytes % (Manual) 34, Monocytes % (Manual) 3, Eosinophils % (Manual) 1, Myelocytes % 1 H, Diff Path Review May foll, Platelet Estimate ADEQUATE, Hypochromasia 1+, Anisocytosis 1+ Meaningful Use Info Meaningful Use Diagnoses (Choose all that apply): None applicable Discharge Plan Admission Admit Date/Time: 07/15/21 04:47 Primary Reason for Your Visit: delivery, hemorrhage, Hysterectomy Attending Provider: Jerry Benito Primary Care Provider: Kathi Mooney NP Consulting Providers: Mitesh Russ ; Verito Andrew Instructions Patient Instructions: Depression, Emptying and Cleaning Your ... Discharge Orders/Prescriptions Prescriptions: New ibuprofen 600 mg Tablet 600 mg PO Q8H PRN PRN (Reason: pain) Qty: 30 RF: 0 oxycodone 5 mg Tablet 5 mg PO Q6H PRN PRN (Reason: severe pain) 7 Days Qty: 15 RF: 0 Continued docusate sodium [Stool Softener] 250 mg Capsule 250 mg PO DAILY RF: 0 prenat.vits,devante,eof-myzo-ygtku Tablet 1 tab PO DAILY RF: 0 Discontinued ferrous sulfate [iron] 325 mg (65 mg iron) Tablet 325 mg PO DAILY RF: 0 famotidine [Pepcid] 20 mg Tablet 20 mg PO BID RF: 0 Referrals / Follow Up: Kathi Mooney NP, [employer] [Primary Care Provider] - Disposition Disposition (needs filled in before D/C Order can be placed): Home, Self Care
[2021-07-19] MEDS: Magnesium Hydroxide 30 ML UDC PO (10:19)
[2021-07-20 15:12] LABS: Pathologist Review Reviewed
[2021-07-20 15:28] LABS: Pathologist Review Reviewed
== END 2021-07-19 12:45 | disposition home or self-care (01) | DRG 539 ==
PROVIDERS: Anesthesiology; Family Medicine; Hospitalist; Obstetrics & Gynecology; Admitting Provider Obstetrics & Gynecology; PCP Nurse Practitioner Primary Care; Visit Provider Obstetrics & Gynecology
PROC: 10D00Z1 Extraction of Products of Conception, Low, Open Approach (ICD-10-PCS; CPT 59514; principal; 2021-07-15 07:15)
PROC: 0UT90ZZ Resection of Uterus, Open Approach (ICD-10-PCS; CPT 58150; principal; 2021-07-15 17:15)
DX: O34.211 Maternal care for low transverse scar from previous cesarean delivery (principal); O44.03 Complete placenta previa NOS or without hemorrhage, third trimester; O24.420 Gestational diabetes mellitus in childbirth, diet controlled; O99.62 Diseases of the digestive system complicating childbirth; K66.0 Peritoneal adhesions (postprocedural) (postinfection); O99.344 Other mental disorders complicating childbirth; F41.9 Anxiety disorder, unspecified; O99.334 Smoking (tobacco) complicating childbirth; F17.290 Nicotine dependence, other tobacco product, uncomplicated; O99.324 Drug use complicating childbirth; F12.980 Cannabis use, unspecified with anxiety disorder; O90.81 Anemia of the puerperium; D62 Acute posthemorrhagic anemia; N99.81 Other intraoperative complications of genitourinary system; I95.81 Postprocedural hypotension; O72.1 Other immediate postpartum hemorrhage; O99.285 Endocrine, nutritional and metabolic diseases complicating the puerperium; E87.5 Hyperkalemia; E83.51 Hypocalcemia; T80.1XXA Vascular complications following infusion, transfusion and therapeutic injection, initial encounter; O90.89 Other complications of the puerperium, not elsewhere classified; R60.0 Localized edema; E87.2 Acidosis; R51.9 Headache, unspecified; R20.2 Paresthesia of skin; Z3A.37 37 weeks gestation of pregnancy; Z37.0 Single live birth; Z30.2 Encounter for sterilization; Z87.440 Personal history of urinary (tract) infections; Z87.59 Personal history of other complications of pregnancy, childbirth and the puerperium
CPT/HCPCS: 36415; 80048; 80053; 80307; 82962; 85014; 85018; 85025; 85027; 85384; 85610; 85730; 86850; 86870; 86900; 86901; 86902; 86920; 86922; 88302; 88307; 99218; J1756; J7030; J7040; J7120; P9016; A4216; G0378; J0330; J0610; J2405; J3470; J3490; Q9968

== ENCOUNTER → 2021-07-23 10:48 | Outpatient (CLI) | payer MEDICAID, SELFPAY ==
[2021-07-23 11:10] LABS: Hemoglobin 9.7 g/dL (12.0-15.0); Mean Corp Hgb Conc 31.3 g/dL (32-36); Mean Corpuscular Hgb 28.6 pg (27.0-32.0); Mean Corpuscular Volume 91.4 fL (81-99); Mean Platelet Vol. 8.5 fl (6.2-12.0); Platelet Count 522 K/mm3 (150-450); RBC Distribution Width CV 16.7 % (11.6-14.6); RBC Distribution Width SD 55.4 fl (35.1-43.9); Red Blood Count 3.39 M/mm3 (4.2-5.4); White Blood Count 9.5 K/mm3 (4.4-11.0)
[2021-07-23 11:43] LABS: ALB/GLOB Ratio 0.6 RATIO (0.9-2.4); AST(SGOT) 15 U/L (15-37); Alanine Aminotransfer ALT/SGPT 35 U/L (13-56); Albumin, Serum 2.5 g/dL (3.2-5.0); Alkaline Phosphatase 101 U/L (45-117); Anion Gap 7 (5-15); BUN 9 mg/dL (7-18); BUN/Creat Ratio 12.6 RATIO (10-20); Calcium,Total 8.8 mg/dL (8.5-10.1); Chloride 106 mmol/L (98-107); Creatinine, Serum 0.71 mg/dL (0.55-1.02); EST Glomerular Filtration Rate 102 mL/min (>60); Est Glom Filt Rate - Afr Amer 123 mL/min (>60); Globulin 4.2 g/dL (2.2-4.2); Glucose 78 mg/dL (74-106); LDH 259 U/L (84-246); Potassium 4.5 mmol/L (3.5-5.1); Protein, Total 6.7 g/dL (6.4-8.2); Sodium Level 140 mmol/L (136-145); Uric Acid 5.7 mg/dL (2.6-6.0)
== END ==
PROVIDERS: PCP Nurse Practitioner Primary Care; Visit Provider Obstetrics & Gynecology
DX: O16.5 Unspecified maternal hypertension, complicating the puerperium (principal)
CPT/HCPCS: 36415; 80053; 83615; 84550; 85027

== ENCOUNTER → 2021-07-24 09:59 | Outpatient (CLI) | payer MEDICAID, SELFPAY ==
--- NOTE | 2021-07-24 10:10 | RAD_ITS ---
CLINICAL HISTORY: Female, 31 years old. Bladder injury. PROCEDURE: Cystogram. FLUOROSCOPY TIME (if supplied): (17 seconds) minutes/seconds. 3 images were obtained. 150 mL of contrast installed into the bladder in a retrograde fashion through indwelling ALBERTS catheter. The radiologist installed the contrast into the bladder. TECHNIQUE: (All elements of maximal sterile barrier technique followed, including US elements as applicable) The bladder was opacified. No abnormality is seen. RAD/Cystography min 3 Views IMPRESSION: Unremarkable cystogram. Electronically Signed: Jeffrey Meza MD at 15:50 EST , Service support ,
== END ==
PROVIDERS: PCP Nurse Practitioner Primary Care; Referring Provider Urology; Visit Provider Urology
DX: S37.29XA Other injury of bladder, initial encounter (principal); N99.81 Other intraoperative complications of genitourinary system
CPT/HCPCS: 51600; 74430; Q9965

== ENCOUNTER → 2021-07-24 15:09 | Outpatient (CLI) | payer MEDICAID, SELFPAY ==
--- NOTE | 2021-07-24 15:12 | VDLE_ITS ---
Reason For Study: RLE Edema RIGHT LEFT GSV is normal. CFV is compressible, spontaneous, phasic, CFV is compressible, spontaneous, phasic, competent, and demonstrates normal competent and demonstrates normal augmentation. augmentation. FV is compressible, spontaneous, phasic, competent and demonstrates normal augmentation. POP V is compressible, spontaneous, phasic, competent and demonstrates normal augmentation. T/P Trunk is compressible. PTV is compressible. RT PerV is compressible. Procedure This is a venous duplex using B-mode, color flow and spectral Doppler. Exam performed in department. A preliminary report was called and/or faxed to Dr. Nely Ramirez. VL/Venous Duplex US, Unilateral Interpretation Summary Deep veins of the right lower extremity are patent and compressible segmentally . There is no evidence of right lower extremity deep vein thrombosis. Valvular competence jamie ears intact within the proximal deep venous system on the right . The right great saphenous vein a ppears patent and compressible segmentally. Ordering Physician: Kellie Kraft Referring Physician: Kathi Mooney Performed By: Madyson King, WADE, RVT
== END ==
PROVIDERS: PCP Nurse Practitioner Primary Care; Referring Provider Obstetrics & Gynecology; Visit Provider Obstetrics & Gynecology
DX: R22.41 Localized swelling, mass and lump, right lower limb (principal); S37.29XA Other injury of bladder, initial encounter; N99.81 Other intraoperative complications of genitourinary system; Y83.9 Surgical procedure, unspecified as the cause of abnormal reaction of the patient, or of later complication, without mention of misadventure at the time of the procedure; Y92.9 Unspecified place or not applicable; Y93.9 Activity, unspecified; Y99.9 Unspecified external cause status
CPT/HCPCS: 51600; 74430; 93971; Q9965

== ENCOUNTER 2021-07-31 10:21 | Emergency (ER) | payer MEDICAID, SELFPAY ==
[2021-07-31 10:23] VITALS: BP 136/86; PULSE 98; RESP 18; TEMP 36.8; O2SAT 100; BMI 28.8
--- NOTE | 2021-07-31 10:57 | EKG12_ITS ---
Test Reason : CP/BACK PAIN Blood Pressure : / mmHG Vent. Rate : 089 BPM Atrial Rate : 089 BPM P-R Int : 136 ms QRS Dur : 082 ms QT Int : 340 ms P-R-T Axes : 015 045 026 degrees QTc Int : 413 ms Normal sinus rhythm Normal ECG Confirmed by TRACI LANTIGUA, LETHA ([id number]), newspaper editor JOSE MANUEL JEAN-BAPTISTE ([id number]) on 08/03/2021 10:04:49 AM Referred By: MARVIN Confirmed By:LETHA AVILES MD
--- NOTE | 2021-07-31 10:58 | CT_ITS ---
STUDY: CTA CHEST REASON FOR EXAM: Female, 31 years old. Dyspnea. Recent . RADIATION DOSAGE (If Supplied By Facility): CTDIvol = ( 13.27 ) mGy, DLP = ( 438.78 ) mGycm TECHNIQUE: The examination was performed with the intravenous administration of IV 100mL Isovue-370. Post-processing of the angiographic images was performed, with multiplanar reformation and 3D reconstruction. Individualized dose optimization techniques were used for this CT. COMPARISON: None. FINDINGS: Multiple intraluminal filling defects seen in branches of the right lower lobe pulmonary artery in keeping with the pulmonary embolism. Normal thoracic aorta and visualized great vessels. There is no demonstrated aortic dissection. Normal heart and pericardium. Normal mediastinum. Normal hilar regions. Normal visualized trachea and bronchi. The lungs are well expanded. Mild degree of right basilar atelectasis. Normal pleura. Normal chest wall structures. Normal osseous structures. Normal visualized upper abdomen. CT/CTA Chest W/WO Contrast IMPRESSION: Pulmonary emboli seen in the right lower lobe pulmonary arterial branches. Electronically Signed: Jeffrey Meza MD at 11:35 EST , Service support ,
--- NOTE | 2021-07-31 10:59 | EDS_ITS ---
HPI History of Present Illness Chief Complaint: Chest Other Informant: patient Onset/Context/Timing Onset: Yesterday Activity at onset: sudden and rest Timing: Continuous Quality: Positive for Sharp Location: Right Chest Worsened By: - (Deep breathing and laying on right side) Relieved By: - (Shallow breathing) Associated Symptoms: Positive for Diaphoresis and Acid Reflux; Negative for Nausea, Vomiting, Dyspnea, Cough, Fever, Lightheadedness and Palpitations Narrative Narrative: Patient presents with right-sided chest pain that began yesterday. Patient states that it began rather suddenly yesterday evening. Patient states she was sitting when the pain began. Patient states the pain is sharp. Patient states pain is over the right side of her chest. Patient states her pain is worse with deep breathing and with breathing out. Patient states it is also worse whenever she lays on her right side. Patient states her pain is better with shallow breathing. Patient states she did break into a sweat with the pain. Patient denies any nausea or vomiting. Patient denies any shortness of breath. Patient denies any cough or fevers. Patient did have a recent section and hysterectomy. CVD Risk Factors: Negative for Hypertension, Diabetes, Hypercholesterolemia, Family History 1' </=55 and Smoking PE Risk Factors: Positive for Recent Travel/Surgery [facility] Medical History (Updated 07/31/21 @ 13:[address] Bimal Romano DO) Anxiety Gestational diabetes History of blood transfusion Intraoperative bladder injury Kidney stones Migraines Placenta previa hemorrhage Supraventricular tachycardia Home Medications ibuprofen 600 mg PO Q8H PRN PRN #30 tab 07/19/21 [Rx Last Taken Unknown] enoxaparin [Lovenox] 90 mg SUBCUT DAILY #10 ml 07/31/21 [Rx Last Taken Unknown] Allergy/AdvReac Type Severity Reaction Status Date / Time adhesive Allergy Severe welts Verified 07/31/21 10:27 hydrocodone [From [place]] Allergy Mild violently Verified 07/31/21 10:27 ill acetaminophen [From [place]] Allergy violently Verified 07/31/21 10:27 ill dial soap Allergy Hives Uncoded 07/31/21 10:27 Surgical History (Updated 07/31/21 @ 11:[address] Bimal Romano, ) H/O cardiac radiofrequency ablation History of left oophorectomy Previous section S/P ureteral stent placement Social History Smoking Status: Current some day smoker tobacco type: cigarettes ROS ROS ED Constitutional Constitutional ED: Denies chills or fever(s) Eyes Eyes: Denies blurry vision or change in vision ENT ENT ED: Denies rhinorrhea or sore throat Cardiovascular Cardiovascular: Reports chest pain; Denies palpitations Respiratory/Chest Respiratory/Chest: Denies cough or dyspnea Gastrointestinal Gastrointestinal: Reports nausea; Denies abdominal pain or vomiting Genitourinary Genitourinary ED: Denies dysuria or hematuria Musculoskeletal Musculoskeletal: Reports back pain and neck pain Integumentary Denies abscess or rash Neurologic Neurologic: Denies headache(s) or weakness Allergic/Immunologic Allergic/Immunologic ED: Denies mouth swelling or urticaria EXAM Physical Exam Const Vital Signs: 07/31/21 10:23 07/31/21 10:31 Temperature 98.2 F Temperature Source Temporal Pulse Rate 98 Respiratory Rate 18 Respiratory Effort Normal Non-Labored Respiratory Pattern Normal Blood Pressure 136/86 H Blood Pressure Mean 102 Pulse Ox 100 Oxygen Delivery Method Room Air Positive well nourished and well developed General Appearance ED: well developed HEENT normocephalic and atraumatic Eyes PERRL and EOMs intact bilaterally Neck supple and no JVD Chest Wall palpation of chest normal Resp normal respiratory effort and clear to auscultation bilaterally Effort and Inspection: Negative for respiratory distress Cardio regular rate, regular rhythm and no murmurs GI normal to inspection, nondistended, normoactive bowel sounds, soft to palpation, non-tender and non-distended Extremity normal to inspection General Extremety ED: Negative for edema or tenderness General Extremity: Negative for edema Neuro oriented x3, CN's II-XII intact bilaterally and no sensory deficits noted Sensorium / Orientation: awake and alert Motor Exam: strength 5/5 throughout Psych mental status grossly normal Heart Score History: Slightly/Non-Suspicious ECG: Normal Age: </= 45 years Risk Factors: No Risk Factors Troponin: </= Normal Limit Score: 0 MDM MDM MDM Narrative Medical decision making narrative: EKG was obtained. On my interpretation, it showed a normal sinus rhythm with a rate of 89. [place] interval, QRS interval, and QTc intervals were all normal. [place] was normal. There are no acute ST or T wave changes. CBC was within normal limits with the exception of a mild anemia with a hemoglobin of 10.7 and hematocrit of 34.6. Platelets were slightly elevated at 514. Comprehensive metabolic profile was within normal limits. High-sensitivity troponin was normal at 4. CTA of the chest was obtained. There is pulmonary emboli in the right lower lobe. This was interpreted by the radiologist and reviewed by myself. Patient was advised of her findings. Case was discussed with Dr. Nely Ramirez who is on-call for Dr. Arango. 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 Patient was given a dose of Lovenox here. Patient was given a prescription for Lovenox injections. Patient was instructed to follow-up with Dr. Arango in 3 to 5 days. Patient understood and was agreeable with the plan. All questions were answered. Lab Data Attestation: I reviewed the patient's lab results. Labs: Laboratory Results - last 24 hr 07/31/21 07/31/21 10:40 10:40 WBC 8.5 RBC 3.84 L Hgb 10.7 L Hct 34.6 L MCV 90.1 MCH 27.9 MCHC 30.9 L RDW Std Deviation 49.3 H RDW Coeff of Della 15.1 H Plt Count 514 H MPV 8.8 Immature Gran % (Auto) 0.500 Neut % (Auto) 66.7 Lymph % (Auto) 24.1 [place] % (Auto) 7.5 Eos % (Auto) 0.8 Baso % (Auto) 0.4 Absolute Neuts (auto) 5.7 Absolute Lymphs (auto) 2.05 Nucleated RBC % 0 Sodium 140 Potassium 4.6 Chloride 107 Carbon Dioxide 26.0 Anion Gap 7 BUN 11 Creatinine 0.80 Estim Creat Clear Calc 106.48 Est GFR (MDRD) Af Amer 108 Est GFR (MDRD) Non-Af 89 BUN/Creatinine Ratio 13.8 Glucose 104 Calcium 8.7 Total Bilirubin 0.40 AST 7 L ALT 29 Alkaline Phosphatase 111 Troponin I High Sens 4 Total Protein 7.3 Albumin 3.0 L Globulin 4.3 H Albumin/Globulin Ratio 0.7 L Radiography Diagnostic Testing: Clinical Impression(s) from Imaging Studies Chest CTA 07/31/21 10:58 IMPRESSION: Pulmonary emboli seen in the right lower lobe pulmonary arterial branches. Electronically Signed: Jeffrey Meza MD at 11:35 EST , Service support , EKG Initial EKG: Attestation: I personally reviewed and interpreted this EKG as follows: Interpretation: Sinus Rhythm (89) and No Acute Injury Pattern Discharge Plan Triage Chief Complaint: Chest Other ED Provider: Bimal Romano Dx/Rx/DC Orders Clinical Impression: Pulmonary emboli Instructions: Pulmonary Embolism Prescriptions: New enoxaparin [Lovenox] 100 mg/mL syringe 90 mg subcut DAILY Qty: 10 RF: 0 No Action ibuprofen 600 mg Tablet 600 mg PO Q8H PRN PRN (Reason: pain) Qty: 30 RF: 0 Primary Care Provider: Kathi Mooney NP Referrals: Terell Arango MD [STAFF PHYSICIAN] - 3-5 Days Katih Mooney NP, REPAIR OPERATOR-C [Primary Care Provider] - 3-5 Days Disposition Disposition: Home, Self Care
[2021-07-31 11:08] LABS: Absolute Lymphocyte Count 2.05 X10^3/uL (0.83-4.51); Absolute Neutrophil Count 5.7 X10^3/uL (2.0-7.7); Basophil# 0.03 X10^3/uL; Basophil% 0.4 % (0-1); Eosinophil# 0.07 X10^3/uL; Eosinophils% 0.8 % (0-5); Hematocrit 34.6 % (37-47); Hemoglobin 10.7 g/dL (12.0-15.0); Lymphocyte # 2.05 X10^3/ul (0.83-4.51); Lymphocyte % 24.1 % (19-41); Mean Corp Hgb Conc 30.9 g/dL (32-36); Mean Corpuscular Hgb 27.9 pg (27.0-32.0); Mean Corpuscular Volume 90.1 fL (81-99); Mean Platelet Vol. 8.8 fl (6.2-12.0); Monocyte# 0.64 X10^3/uL; Monocyte% 7.5 % (0-10); NRBC Flagged by Analyzer 0 % (0-5); Neutrophil # 5.68 X10^3/uL (2.7-7.7); Neutrophil % 66.7 % (47-70); Platelet Count 514 K/mm3 (150-450); RBC Distribution Width CV 15.1 % (11.6-14.6); RBC Distribution Width SD 49.3 fl (35.1-43.9); Red Blood Count 3.84 M/mm3 (4.2-5.4); White Blood Count 8.5 K/mm3 (4.4-11.0)
[2021-07-31] MEDS: 0.9% Normal Saline 1,000 ML 1000 ML IV (11:10)
[2021-07-31 11:20] LABS: ALB/GLOB Ratio 0.7 RATIO (0.9-2.4); AST(SGOT) 7 U/L (15-37); Alanine Aminotransfer ALT/SGPT 29 U/L (13-56); Alkaline Phosphatase 111 U/L (45-117); Anion Gap 7 (5-15); BUN 11 mg/dL (7-18); BUN/Creat Ratio 13.8 RATIO (10-20); Calcium,Total 8.7 mg/dL (8.5-10.1); Chloride 107 mmol/L (98-107); EST Glomerular Filtration Rate 89 mL/min (>60); Est Glom Filt Rate - Afr Amer 108 mL/min (>60); Estimated Creatinine Clearance 106.48 ml/min; Globulin 4.3 g/dL (2.2-4.2); Glucose 104 mg/dL (74-106); Potassium 4.6 mmol/L (3.5-5.1); Protein, Total 7.3 g/dL (6.4-8.2); Sodium Level 140 mmol/L (136-145); Troponin-I HS 4 pg/mL (3.0-54.0)
[2021-07-31 13:10] VITALS: PULSE 85; RESP 18; O2SAT 98
[2021-07-31] MEDS: Enoxaparin 100 MG/ML Syringe 90 MG SC (13:21)
[2021-07-31 13:35] VITALS: BP 110/76; PULSE 88; RESP 16; O2SAT 99
== END 2021-07-31 13:37 | disposition home or self-care (01) ==
PROVIDERS: Emergency Provider Emergency Medicine; PCP Nurse Practitioner Primary Care
DX: I26.99 Other pulmonary embolism without acute cor pulmonale (principal); F17.210 Nicotine dependence, cigarettes, uncomplicated; Z79.01 Long term (current) use of anticoagulants
CPT/HCPCS: 71275; 80053; 84484; 85025; 93005; 96360; 96361; 96372; 99284; J7030; Q9967; A4216

== ENCOUNTER 2021-08-01 21:31 | Emergency (ER) | payer MEDICAID, SELFPAY ==
[2021-08-01 21:31] VITALS: BP 124/82; PULSE 110; RESP 18; TEMP 36.6; O2SAT 100; BMI 28.8
--- NOTE | 2021-08-01 22:11 | EKG12_ITS ---
Test Reason : ABD PAIN Blood Pressure : / mmHG Vent. Rate : 094 BPM Atrial Rate : 094 BPM P-R Int : 160 ms QRS Dur : 086 ms QT Int : 336 ms P-R-T Axes : 040 047 024 degrees QTc Int : 420 ms Normal sinus rhythm Normal ECG Confirmed by TRACI LANTIGUA, LETHA ([id number]), associate entertainment editor JOSE MANUEL JEAN-BAPTISTE ([id number]) on 08/03/2021 10:25:29 AM Referred By: TL Confirmed By:LETHA AVILES MD
--- NOTE | 2021-08-01 22:16 | EDS_ITS ---
HPI History of Present Illness Chief Complaint: General Illness Informant: patient Narrative Narrative: Presents with transient palpitations hour prior to arrival. States mild dyspnea. History of anxiety with similar in the past. Reports seen in ED yesterday diagnosed with right lower lobe PE. She is breast-feeding therefore started on Lovenox. She did take her full dose Lovenox today. Treatment is daily per patient. Status post with emergent hysterectomy nearly 3 weeks ago. She is followed by Dr. Puente and Dr. Nely Ramirez. Upcoming appointment with PCP and gynecology this week. Denies cough. Denies vomiting or diarrhea. Currently asymptomatic. Prior similar symptoms: Yes PFSH PFSH Medical History Anxiety Gestational diabetes History of blood transfusion Intraoperative bladder injury Kidney stones Migraines Placenta previa hemorrhage Supraventricular tachycardia Home Medications enoxaparin [Lovenox] 90 mg SUBCUT DAILY #10 ml 07/31/21 [Rx Last Taken Unknown] Allergy/AdvReac Type Severity Reaction Status Date / Time adhesive Allergy Severe welts Verified 08/01/21 21:35 hydrocodone [From [place]] Allergy Mild violently Verified 08/01/21 21:35 ill acetaminophen [From [place]] Allergy violently Verified 08/01/21 21:35 ill dial soap Allergy Hives Uncoded 08/01/21 21:35 Surgical History H/O cardiac radiofrequency ablation History of left oophorectomy Previous section S/P ureteral stent placement Social History Smoking Status: Former smoker ROS ROS ED Constitutional Constitutional ED: Denies chills, fever(s) or sweats Eyes Eyes: Denies change in vision ENT ENT ED: Denies dysphagia or sore throat Cardiovascular Cardiovascular: Reports palpitations; Denies chest pain, leg edema or racing heartbeat Respiratory/Chest Respiratory/Chest: Denies cough, dyspnea or dyspnea on exertion Gastrointestinal Gastrointestinal: Denies abdominal pain, diarrhea, nausea or vomiting Genitourinary Genitourinary ED: Denies dysuria, hematuria or urinary frequency Musculoskeletal Musculoskeletal: Denies back pain, extremity pain or neck pain Integumentary Denies rash or wounds Neurologic Neurologic: Denies headache(s), paresthesias or weakness EXAM Physical Exam Const Vital Signs: 08/01/21 21:31 08/01/21 21:44 08/01/21 22:38 Temperature 98 F Temperature Source Temporal Pulse Rate 110 H 94 Respiratory Rate 18 18 Respiratory Effort Normal Respiratory Pattern Normal Blood Pressure 124/82 H Blood Pressure Mean 96 Pulse Ox 100 Oxygen Delivery Method Room Air Positive well nourished and well developed General Appearance ED: well developed and NAD HEENT Reports moist mucous membranes normocephalic and atraumatic Eyes PERRL, EOMs intact bilaterally and conjunctivae normal General Eye ED: Yes normal appearance of both eyes Neck no lymphadenopathy and supple General: Negative for tenderness Chest Wall Chest: Negative for tenderness Resp normal respiratory effort and normal air movement Effort and Inspection: symmetric chest movement; Negative for respiratory distress Cardio regular rate, regular rhythm and no murmurs Rate: other Other Details: Heart rate 84 Peripheral Pulses: pulses 2+ throughout GI normal to inspection, nondistended, normoactive bowel sounds and non-tender Palpation: Negative for guarding or rebound tenderness present Back/Spine no CVA tenderness and no thoracic nor lumbar tenderness Extremity normal to inspection General Extremety ED: Negative for edema or tenderness General Extremity: Negative for edema Neuro oriented x3 and no sensory deficits noted Sensorium / Orientation: awake and alert Skin no rashes or lesions noted and no wounds MDM MDM MDM Narrative Medical decision making narrative: Patient currently asymptomatic. Heart rate normalized on my exam EKG was normal. Patient currently on her full dose Lovenox injections. Pulse ox 100%. She is reassured. She is discharged with scheduled outpatient follow-up. Return precautions discussed. All questions were answered. Patient is being discharged under pandemic conditions under declared global, national and state disaster activation, with limited medical resources. Patient and community understands this. Results discussed in layman's terms to the patient satisfaction. All questions answered in layman's terms. Patient understands importance of follow-up care as directed. Patient has been instructed to return to the ED immediately if new symptoms, problems, or questions occur. We mutually agree with the plan of disposition. The patient understand that they may call or return with any questions or concerns at any time. EKG Initial EKG: Attestation: I personally reviewed and interpreted this EKG as follows: Comments: Sinus rate of 94, no ST or T wave changes. Discharge Plan Triage Chief Complaint: General Illness ED Provider: Norm Ruth Dx/Rx/DC Orders Clinical Impression: History of pulmonary embolism, Palpitations Instructions: ED Palpitations Prescriptions: No Action enoxaparin [Lovenox] 100 mg/mL syringe 90 mg subcut DAILY Qty: 10 RF: 0 Primary Care Provider: Kathi Mooney NP Referrals: Kathi Mooney NP, MONOTYPE KEYBOARD OPERATOR-C [Primary Care Provider] - Keep Abraham appointment Activity Restrictions/Additional Instructions: Continue your daily Lovenox injections. Keep your follow-up. Return if any worsening symptoms. Disposition Disposition: Home, Self Care Discharge Date/Time: 08/01/21 22:38
[2021-08-01 22:38] VITALS: PULSE 94; RESP 18
== END 2021-08-01 22:38 | disposition home or self-care (01) ==
PROVIDERS: Emergency Provider Emergency Medicine; PCP Nurse Practitioner Primary Care
DX: R00.2 Palpitations (principal); I26.99 Other pulmonary embolism without acute cor pulmonale; Z79.01 Long term (current) use of anticoagulants; Z87.891 Personal history of nicotine dependence
CPT/HCPCS: 93005; 99282

== ENCOUNTER 2021-09-09 20:42 | Emergency (ER) | payer MEDICAID, SELFPAY ==
[2021-09-09 20:42] VITALS: BP 161/96; PULSE 83; RESP 18; TEMP 36.3; O2SAT 99; BMI 29.6
--- NOTE | 2021-09-09 20:58 | RAD_ITS ---
INDICATION: Chest pain EXAMINATION/TECHNIQUE: X-RAY - XR Chest 1 View COMPARISON: 09/29/2018 FINDINGS: LIFE-SUPPORT AND LINES: 1. None HEART AND VESSELS: The cardiac silhouette, pulmonary vasculature have normal appearance. No evidence of congestive failure. LUNGS AND PLEURAL SPACES: Lungs are clear. No focal infiltrate, consolidation or effusions. No evidence of pneumothorax. No pulmonary mass is noted. MEDIASTINUM AND HILAR REGIONS: No masses adenopathy noted. No areas of calcification. Visualized upper airway is normal in position. BONY ELEMENTS: No acute bony changes noted. RAD/Chest 1 View (Portable) IMPRESSION: 1. No evidence of acute cardiopulmonary process Electronically Signed: Osmel Bashir MD at 21:47 EST Tel , Service support ,
--- NOTE | 2021-09-09 21:00 | EKG12_ITS ---
Test Reason : PALPS Blood Pressure : / mmHG Vent. Rate : 081 BPM Atrial Rate : 081 BPM P-R Int : 166 ms QRS Dur : 082 ms QT Int : 376 ms P-R-T Axes : 037 049 016 degrees QTc Int : 436 ms Normal sinus rhythm Normal ECG Confirmed by LETHA AVILES MD ([id number]), visual effects editor JOSE MANUEL JEAN-BAPTISTE ([id number]) on 09/10/2021 1:34:12 PM Referred By: JOSE RAFAEL Confirmed By:LETHA AVILES MD
[2021-09-09 21:24] LABS: Bacteria 0 SEEN /hpf (None Seen); Mucous, Urine 0 SEEN /hpf (<or=2+); Red Blood Cells-Urine 0 SEEN /hpf (0-5)
[2021-09-09 21:28] LABS: Absolute Lymphocyte Count 2.12 X10^3/uL (0.83-4.51); Absolute Neutrophil Count 2.2 X10^3/uL (2.0-7.7); Basophil# 0.01 X10^3/uL; Basophil% 0.2 % (0-1); Eosinophil# 0.05 X10^3/uL; Hematocrit 36.9 % (37-47); Hemoglobin 11.7 g/dL (12.0-15.0); Lymphocyte # 2.12 X10^3/ul (0.83-4.51); Lymphocyte % 43.6 % (19-41); Mean Corp Hgb Conc 31.7 g/dL (32-36); Mean Platelet Vol. 9.2 fl (6.2-12.0); Monocyte# 0.43 X10^3/uL; Monocyte% 8.8 % (0-10); NRBC Flagged by Analyzer 0 % (0-5); Neutrophil # 2.24 X10^3/uL (2.7-7.7); Neutrophil % 46.2 % (47-70); Platelet Count 289 K/mm3 (150-450); RBC Distribution Width CV 14.6 % (11.6-14.6); RBC Distribution Width SD 44.1 fl (35.1-43.9); White Blood Count 4.9 K/mm3 (4.4-11.0)
[2021-09-09 21:31] LABS: Color, Urine Yellow (Yellow); Glucose, Dipstick Normal (Normal); Ketone-Dipstick 5 mg/dl (Negative); Leukocyte Esterase-Dipstick 100 /ul (Negative); Nitrite-Dipstick Negative (Negative); Occult Blood-Urine 10 /ul (Negative); Protein-Dipstick 15 mg/dl (Negative); Urine Bilirubin Dipstick Negative (Negative); Urine Clarity Clear (Clear); Urine Urobilinogen Normal (Normal)
[2021-09-09 21:37] LABS: Squamous Epithelial Cells - UA 5-10 SEEN /hpf (5-10); White Blood Cells 5-10 SEEN /hpf (0-5)
[2021-09-09 21:47] LABS: ALB/GLOB Ratio 0.9 RATIO (0.9-2.4); AST(SGOT) 20 U/L (15-37); Alanine Aminotransfer ALT/SGPT 50 U/L (13-56); Albumin, Serum 3.6 g/dL (3.2-5.0); Alkaline Phosphatase 75 U/L (45-117); Anion Gap 4 (5-15); BUN 10 mg/dL (7-18); BUN/Creat Ratio 11.7 RATIO (10-20); Calcium,Total 8.9 mg/dL (8.5-10.1); Chloride 109 mmol/L (98-107); Creatinine, Serum 0.86 mg/dL (0.55-1.02); EST Glomerular Filtration Rate 82 mL/min (>60); Est Glom Filt Rate - Afr Amer 99 mL/min (>60); Estimated Creatinine Clearance 95.61 ml/min; Globulin 4.1 g/dL (2.2-4.2); Glucose 121 mg/dL (74-106); Potassium 3.7 mmol/L (3.5-5.1); Protein, Total 7.7 g/dL (6.4-8.2); Sodium Level 142 mmol/L (136-145); Troponin-I HS 4 pg/mL (3.0-54.0)
[2021-09-09 21:50] LABS: International Normalized Ratio 1.9; Prothrombin Time (Protime)PT. 20.9 SECONDS (11.7-14.9)
--- NOTE | 2021-09-09 22:33 | EDS_ITS ---
HPI History of Present Illness Chief Complaint: Palpitations Informant: patient Onset/Context/Timing Onset: Today Context: Gradual Onset Timing: Continuous Quality: Tightness Location: Chest Worsened by: Standing up too fast Relieved by: Nothing Narrative Narrative: Patient presents with palpitations that began today. Patient states she does not feel well. Patient admits to some tightness in her chest. Patient also states that she gets lightheaded when she stands up too fast. Patient is currently being treated for pulmonary embolism. Patient is on subcutaneous Lovenox and is being bridged over to Coumadin. Patient admits to a fever of 104. Patient admits to some chills. Patient admits to a cough with some clear sputum. Patient admits to some general myalgias and nausea. Patient also admits to a headache. Patient states that she is currently being treated for mastitis and her MECHANICAL ASSEMBLY TECHNICIAN recently started her on penicillin for this. [facility] Medical History Anxiety Gestational diabetes History of blood transfusion Intraoperative bladder injury Kidney stones Migraines Placenta previa hemorrhage Supraventricular tachycardia Home Medications enoxaparin [Lovenox] 90 mg SUBCUT DAILY #10 ml 07/31/21 [Rx Last Taken Unknown] Allergy/AdvReac Type Severity Reaction Status Date / Time adhesive Allergy Severe welts Verified 08/01/21 21:35 hydrocodone [From [place]] Allergy Mild violently Verified 08/01/21 21:35 ill acetaminophen [From [place]] Allergy violently Verified 08/01/21 21:35 ill dial soap Allergy Hives Uncoded 08/01/21 21:35 Surgical History H/O cardiac radiofrequency ablation History of left oophorectomy Previous section S/P ureteral stent placement Social History Smoking Status: Former smoker ROS ROS ED Constitutional Constitutional ED: Reports chills and fever(s) Eyes Eyes: Denies blurry vision or change in vision ENT ENT ED: Reports rhinorrhea; Denies sore throat Cardiovascular Cardiovascular: Reports chest pain; Denies palpitations Respiratory/Chest Respiratory/Chest: Reports cough, dyspnea and sputum Gastrointestinal Gastrointestinal: Denies nausea or vomiting Genitourinary Genitourinary ED: Denies dysuria or hematuria Musculoskeletal Musculoskeletal: Reports myalgias; Denies back pain or neck pain Integumentary Denies abscess or rash Neurologic Neurologic: Reports headache(s); Denies weakness Allergic/Immunologic Allergic/Immunologic ED: Denies mouth swelling or urticaria EXAM Physical Exam Const Vital Signs: 09/09/21 20:42 09/09/21 20:54 Temperature 97.4 F L Temperature Source Temporal Pulse Rate 83 Respiratory Rate 18 Respiratory Effort Normal Non-Labored Blood Pressure 161/96 H Blood Pressure Mean 117 Pulse Ox 99 Oxygen Delivery Method Room Air Positive well nourished and well developed General Appearance ED: well developed HEENT Reports moist mucous membranes Neck supple and no JVD Resp normal respiratory effort and clear to auscultation bilaterally Cardio regular rate, regular rhythm and no murmurs GI normal to inspection, nondistended, normoactive bowel sounds and non-tender Palpation: soft Extremity normal to inspection General Extremety ED: Negative for edema or tenderness General Extremity: Negative for edema Neuro oriented x3, CN's II-XII intact bilaterally and no sensory deficits noted Sensorium / Orientation: alert Motor Exam: strength 5/5 throughout Psych mental status grossly normal Skin no rashes or lesions noted MDM MDM MDM Narrative Medical decision making narrative: EKG was obtained. On my interpretation, it showed a normal sinus rhythm with a rate of 81. [place] interval, QRS interval, and QTc intervals were all normal. [place] was normal. There are no acute ST or T wave changes. CBC was within normal limits. PT with INR was slightly subtherapeutic at 1.9. Urinalysis does not show any evidence of urinary tract infection. Comprehensive metabolic profile was obtained and was within normal limits. Portable 1 view chest x-ray was obtained. On my interpretation, lung botello are clear. There is normal cardiac silhouette. Bony thorax is normal. There is no acute process noted. Radiologist also interpreted the x-ray and agrees. COVID-19 rapid antigen was obtained and was positive. Patient was advised of her findings. Patient was instructed to continue her Coumadin and Lovenox as prescribed. Patient was instructed to follow-up with her primary care physician and MECHANICAL ASSEMBLY TECHNICIAN in 3 to 5 days. Patient understood and was agreeable with the plan. All questions were answered. Lab Data Attestation: I reviewed the patient's lab results. Labs: Laboratory Results - last 24 hr 09/09/21 09/09/21 09/09/21 21:10 21:19 21:19 WBC 4.9 RBC 4.50 Hgb 11.7 L Hct 36.9 L MCV 82.0 MCH 26.0 L MCHC 31.7 L RDW Std Deviation 44.1 H RDW Coeff of Della 14.6 Plt Count 289 MPV 9.2 Immature Gran % (Auto) 0.200 Neut % (Auto) 46.2 L Lymph % (Auto) 43.6 H [place] % (Auto) 8.8 Eos % (Auto) 1.0 Baso % (Auto) 0.2 Absolute Neuts (auto) 2.2 Absolute Lymphs (auto) 2.12 Nucleated RBC % 0 PT 20.9 H INR 1.9 Sodium Potassium Chloride Carbon Dioxide Anion Gap BUN Creatinine Estim Creat Clear Calc Est GFR (MDRD) Af Amer Est GFR (MDRD) Non-Af BUN/Creatinine Ratio Glucose Calcium Total Bilirubin AST ALT Alkaline Phosphatase Troponin I High Sens Total Protein Albumin Globulin Albumin/Globulin Ratio Urine Color Yellow Urine Clarity Clear Urine pH 6.0 Ur Specific [place] 1.020 Urine Protein 15 H Urine Glucose (UA) Normal Urine Ketones 5 H Urine Occult Blood 10 H Urine Nitrite Negative Urine Bilirubin Negative Urine Urobilinogen Normal Ur Leukocyte Esterase 100 H Urine RBC 0 SEEN Urine WBC 5-10 SEEN Ur Squamous Epith Cells 5-10 SEEN Urine Bacteria 0 SEEN Urine Mucus 0 SEEN 09/09/21 21:19 WBC RBC Hgb Hct MCV MCH MCHC RDW Std Deviation RDW Coeff of Della Plt Count MPV Immature Gran % (Auto) Neut % (Auto) Lymph % (Auto) [place] % (Auto) Eos % (Auto) Baso % (Auto) Absolute Neuts (auto) Absolute Lymphs (auto) Nucleated RBC % PT INR Sodium 142 Potassium 3.7 Chloride 109 H Carbon Dioxide 29.0 Anion Gap 4 L BUN 10 Creatinine 0.86 Estim Creat Clear Calc 95.61 Est GFR (MDRD) Af Amer 99 Est GFR (MDRD) Non-Af 82 BUN/Creatinine Ratio 11.7 Glucose 121 H Calcium 8.9 Total Bilirubin 0.10 L AST 20 ALT 50 Alkaline Phosphatase 75 Troponin I High Sens 4 Total Protein 7.7 Albumin 3.6 Globulin 4.1 Albumin/Globulin Ratio 0.9 Urine Color Urine Clarity Urine pH Ur Specific [place] Urine Protein Urine Glucose (UA) Urine Ketones Urine Occult Blood Urine Nitrite Urine Bilirubin Urine Urobilinogen Ur Leukocyte Esterase Urine RBC Urine WBC Ur Squamous Epith Cells Urine Bacteria Urine Mucus Radiography Diagnostic Testing: Clinical Impression(s) from Imaging Studies Chest X-Ray 09/09/21 20:58 IMPRESSION: 1. No evidence of acute cardiopulmonary process Electronically Signed: Osmel Bashir MD at 21:47 EST Tel , Service support , EKG Initial EKG: Attestation: I personally reviewed and interpreted this EKG as follows: Interpretation: Sinus Rhythm (81) and No Acute Injury Pattern Prior EKG tracings: available for review Prior: Unchanged (08/01/2021) Discharge Plan Triage Chief Complaint: Palpitations ED Provider: Bimal Romano Dx/Rx/DC Orders Clinical Impression: COVID-19 Instructions: Coronavirus Disease 2019 (COVID-19): Caring for Yourself or Others Prescriptions: No Action enoxaparin [Lovenox] 100 mg/mL syringe 90 mg subcut DAILY Qty: 10 RF: 0 Primary Care Provider: Kathi Mooney NP Referrals: Kathi Mooney NP, BURN OUT TENDER LACE-C [Primary Care Provider] - 3-5 Days Disposition Disposition: Home, Self Care
[2021-09-09 22:59] VITALS: BP 115/73; PULSE 78; RESP 16; O2SAT 97
== END 2021-09-09 22:59 | disposition home or self-care (01) ==
PROVIDERS: Emergency Provider Emergency Medicine; PCP Nurse Practitioner Primary Care; Visit Provider Emergency Medicine
DX: U07.1 COVID-19 (principal); Z87.891 Personal history of nicotine dependence; Z79.01 Long term (current) use of anticoagulants
CPT/HCPCS: 71045; 80053; 81001; 84484; 85025; 85610; 87426; 93005; 99284; A4216

== ENCOUNTER → 2023-01-21 | Outpatient (CLI) | payer MEDICAID, SELFPAY ==
--- NOTE | 2023-01-21 13:52 | ECHOD_ITS ---
Reason For Study: SYNCOPE AND COLLAPSE Procedure This was a 2D Doppler, Color Flow transthoracic echocardiogram. Exam performed in department. Left Ventricle Normal LV size. Left ventricular systolic function is normal. The estimated ejection fraction is 60 %. Normal diastology for age. No regional wall motion abnormalities noted. Right Ventricle Normal RV size. Normal systolic function. Atria Normal left atrium. Normal right atrium. Bubble contrast study negative for right to left interatrial shunt. Mitral Valve Normal mitral valve. Tricuspid Valve Normal tricuspid valve. Aortic Valve Normal aortic valve. Trisinus/trileaflet aortic valve. Pulmonic Valve Normal pulmonic valve. Great Vessels Normal aortic root. The pulmonary artery is normal size. Inferior vena cava collapse with respiration. Pericardium/Pleural No pericardial effusion. Medication 22 gauge I.V. with prn adaptor inserted into right arm. Performed a rapid injection of agitated mix of 9 cc saline and 1cc air to assess for atrial septal defect. MMode/2D Measurements & Calculations LVIDd: 5.2 cm IVSd: 0.88 cm Ao root diam: 2.9 cm LVIDs: 3.6 cm LVPWd: 0.95 cm RVDd: 1.8 cm FS: 31.0 % LAV(MOD-bp): 37.2 ml LVAd ap4: 30.9 cm2 SV(MOD-sp4): 62.0 ml LAV(MOD-bp) Indexed: 18.2 ml/m2 LVLd ap4: 8.2 cm LAV(MOD-sp2): 35.2 ml EDV(MOD-sp4): 95.9 ml LAV(MOD-sp4): 38.9 ml EDV(sp4-el): 98.8 ml LVAs ap4: 16.3 cm2 LVLs ap4: 6.7 cm ESV(MOD-sp4): 34.0 ml ESV(sp4-el): 33.5 ml EF(MOD-sp4): 64.6 % EF(sp4-el): 66.1 % SV(sp4-el): 65.3 ml LA A4 area: 15.1 cm2 LA dimension(2D): 3.4 cm RA A4 area: 9.3 cm2 Time Measurements MV dec time: 0.20 sec Doppler Measurements & Calculations MV E max marco: 76.2 cm/sec Lat Peak E' Marco: 14.1 cm/sec Med Peak E' Marco: 8.5 cm/sec MV A max marco: 62.3 cm/sec E/E' lat: 5.4 E/E' med: 9.0 MV E/A: 1.2 MV V2 max: 90.0 cm/sec MV dec slope: 392.2 cm/sec2 Ao V2 max: 101.1 cm/sec MV max P.2 mmHg Ao max P.1 mmHg MV V2 mean: 60.2 cm/sec Ao V2 mean: 73.0 cm/sec MV mean P.6 mmHg Ao mean P.4 mmHg MV V2 VTI: 17.8 cm Ao V2 VTI: 18.4 cm AV (velocity ratio): 0.95 LV V1 max: 90.1 cm/sec MR max marco: 361.2 cm/sec PA V2 max: 94.0 cm/sec LV V1 max P.3 mmHg MR max P.2 mmHg PA V2 mean: 65.1 cm/sec LV V1 mean P.7 mmHg LV V1 mean: 60.4 cm/sec LV V1 VTI: 17.5 cm ECHO/Echo Complete Interpretation Summary Normal LV size. Left ventricular systolic function is normal. The estimated ejection fraction is 60 %. Normal diastology for age. Structurally normal valves. Ordering Physician: Phil Todd Referring Physician: Phil Todd Performed By: Rupali Lazcano RCS
== END | disposition home or self-care (01) ==
LOC: CVS 13:45
PROVIDERS: PCP Nurse Practitioner Primary Care; Referring Provider Internal Medicine Cardiovascular Disease; Visit Provider Internal Medicine Cardiovascular Disease
DX: R55 Syncope and collapse (principal)
CPT/HCPCS: 93306

== ENCOUNTER → 2023-01-25 | Outpatient (CLI) | payer MEDICAID, SELFPAY ==
[2023-01-25 09:07] LABS: Hematocrit 43.5 % (37-47); Hemoglobin 14.4 g/dL (12.0-15.0); Mean Corp Hgb Conc 33.1 g/dL (32-36); Mean Corpuscular Hgb 29.8 pg (27.0-32.0); Mean Corpuscular Volume 90.1 fL (81-99); Mean Platelet Vol. 9.8 fl (6.2-12.0); Platelet Count 326 K/mm3 (150-450); RBC Distribution Width CV 11.9 % (11.6-14.6); RBC Distribution Width SD 38.7 fl (35.1-43.9); Red Blood Count 4.83 M/mm3 (4.2-5.4); White Blood Count 8.2 K/mm3 (4.4-11.0)
[2023-01-25 09:20] LABS: Anion Gap 4 (5-15); BUN 9 mg/dL (7-18); BUN/Creat Ratio 11.1 RATIO (10-20); Calcium,Total 8.7 mg/dL (8.5-10.1); Chloride 109 mmol/L (98-107); Creatinine, Serum 0.81 mg/dL (0.55-1.02); EST Glomerular Filtration Rate 87 mL/min (>60); Est Glom Filt Rate - Afr Amer 105 mL/min (>60); Glucose 126 mg/dL (74-106); Potassium 4.1 mmol/L (3.5-5.1); Sodium Level 139 mmol/L (136-145)
--- NOTE | 2023-01-25 18:46 | PCM.TILTTABL ---
Staff Staff: Ethel Medina and Madyson Florentino Summary Pre Test Resting HR: 84 Pre Test Resting BP: 132/94 Minimum Test HR: 76 Maximum Test HR: 105 Minimum Test BP: 121/94 Maximum Test BP: 151/99 Reason for Test Termination: Reached Maximum Test Time Physician Tilt Table Report Patient's Physicians Primary Care Physician: Kathi Mooney NP Helicopter Specialist: Phil Todd Indications/Diagnosis: Syncope Procedure Comments: Was brought to the noninvasive suite in the postabsorptive nonsedated state. Initial vitals were obtained as noted above. Patient was placed in the 70 degree head upright tilt position. Minimal symptoms were noted blood pressures and heart rates were obtained which were noted above. No significant changes were noted after 20 minutes. Patient tolerated the procedure well. Summary: Negative head upright tilt table.
[2023-01-25 18:51] VITALS: BP 121/94; BP 132/94; BP 151/99
== END | disposition home or self-care (01) ==
LOC: CVS 08:53
PROVIDERS: PCP Nurse Practitioner Primary Care; Referring Provider Internal Medicine Cardiovascular Disease; Visit Provider Internal Medicine Cardiovascular Disease
DX: R55 Syncope and collapse (principal); I47.1 Supraventricular tachycardia; R00.2 Palpitations
CPT/HCPCS: 36415; 80048; 85027; 93660; J7040; A4216

== ENCOUNTER → 2025-01-11 | Outpatient (CLI) | payer MEDICAID, SELFPAY ==
[2025-01-11 15:10] LABS: ALB/GLOB Ratio 1.6 RATIO (0.9-2.4); AST(SGOT) 52 U/L (<=31); Alanine Aminotransfer ALT/SGPT 118 U/L (<=34); Albumin, Serum 4.9 g/dL (3.5-5.0); Alkaline Phosphatase 68 U/L (35-104); Anion Gap 12 (5-15); BUN 10 mg/dL (4-19); BUN/Creat Ratio 12.4 RATIO (10-20); Calcium,Total 10.2 mg/dL (7.6-11.0); Carbon Dioxide 23.4 mmol/L (21.0-32.0); Chloride 101 mmol/L (98-108); EST Glomerular Filtration Rate 99 (>60); Glucose 95 mg/dL (70-99); Potassium 4.4 mmol/L (3.3-5.1); Protein, Total 7.8 g/dL (5.9-8.4); Sodium Level 137 mmol/L (133-145); Total Bilirubin 0.38 mg/dL (0.00-1.30)
[2025-01-11 15:58] LABS: Hemoglobin A1c 5.7 % (<=5.6)
== END | disposition home or self-care (01) ==
LOC: LAB 13:41
PROVIDERS: PCP Nurse Practitioner Primary Care; Referring Provider Student in an Organized Health Care Education/Training Program; Visit Provider Student in an Organized Health Care Education/Training Program
DX: K76.0 Fatty (change of) liver, not elsewhere classified (principal)
CPT/HCPCS: 36415; 80053; 83036

== ENCOUNTER → 2025-01-25 | Outpatient (CLI) | payer MEDICAID, SELFPAY ==
--- NOTE | 2025-01-25 08:53 | US_ITS ---
PROCEDURE: ABD LIMITED W/ ELASTOGRAPHY REASON FOR EXAM: FATTY LIVER COMPARISON: CT abdomen and pelvis on 08/09/2018. TECHNIQUE: Right upper quadrant abdominal ultrasound. [facility]ia ElastQ Imaging shear wave elastography for non-invasive assessment of liver tissue stiffness. Dalia EPIQ Elite. FINDINGS: LIVER: Length: 17.1 cm Echotexture: Diffusely echogenic suggesting fatty infiltration Contour: Normal Lesions: None identified Elastography: EQI Med: 4.83 kPa EQI Med Marco: 1.26 m/s IQR/Med: 18.9-28.6 %* GALLBLADDER: Normal COMMON BILE DUCT: Normal measuring 5 mm. PANCREAS: Normal There are few echogenic foci measuring 3 mm with twinkle artifact in the right kidney.. No right upper quadrant ascites. US/ABD Limited w/ Elastography IMPRESSION: 1. Hepatic steatosis, with no to mild fibrosis. 2. Nonobstructing stones in the right kidney measuring 3 mm. Reference Values: SRU <1.37 m/s (5.7kPa): No to mild fibrosis 1.37 m/s - 2.2 m/s: Moderate to severe fibrosis >2.2 m/s (15kPa): Significant fibrosis / cirrhosis METAVIR Score F2 or higher: 1.34 m/s (5.7kPa) F3 or higher: 1.55 m/s (7.3kPa) F4: 1.80 m/s (10kPa) * If the IQR/Med is >30%, the variance in the measurements is a large and the a ccuracy of the measurement may be in question. Reading Location: [facility]
== END | disposition home or self-care (01) ==
LOC: US 08:52
PROVIDERS: PCP Nurse Practitioner Primary Care; Referring Provider Student in an Organized Health Care Education/Training Program; Visit Provider Student in an Organized Health Care Education/Training Program
DX: K76.0 Fatty (change of) liver, not elsewhere classified (principal)
CPT/HCPCS: 76705; 76981

== ENCOUNTER 2025-03-15 10:40 | Day surgery (SDC) | payer MEDICAID, SELFPAY ==
--- NOTE | 2025-03-13 17:32 | PAT.ANESEVAL ---
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 When Was Last Pacemaker Check QUESTION #4 FULL TEXT: You/Your Family Experience fever (hyperthermia) with Anesthesia Last Oral Intake Last Oral intake: Last Oral Intake NPO since Meds taken in AM with sips of water? 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 Female Yes 03/12/25 11:22 HX of Motion Sickness No 03/12/25 11:22 HX of N/V After Surgery No 03/12/25 11:22 Non-Smoker Yes 03/12/25 11:22 Duration of Surgery greater No 03/12/25 11:22 than 60 minutes Number of Risk Factors 2 03/12/25 11:22 PONV Score Moderate Risk 03/12/25 11:22 Height & Weight Height & Weight: Anesthesia: Height & Weight Height 5 ft 8 in 04/15/23 13:00 Respiratory Assessment Respiratory Assessment - grain ii farmworker: Respiratory Tract Infection Hx - grain ii farmworker Hx Respiratory Tract Infection No 03/12/25 11:22 STOP Sleep Apnea STOP Sleep Apnea - grain ii farmworker: STOP Sleep Apnea - grain ii farmworker Hx Hypertension No 03/12/25 11:22 Hx Sleep Apnea No 03/12/25 11:22 CPAP No 03/12/25 11:22 BIPAP No 03/12/25 11:22 Do you snore loudly (louder No 03/12/25 11:22 than talking or can be heard Do you often feel tired/ No 03/12/25 11:22 fatigued/ sleepy during daytime? Has anyone observed you stop No 03/12/25 11:22 breathing during sleep? STOP Results Negative 03/12/25 11:22 QUESTION #5 FULL TEXT : Do you snore loudly (louder than talking or can be heard through closed doors)? 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 Specify any problems Hx of Preganancy in last 3 No 03/12/25 11:22 Months Nurse Filling Out Transfusion VCHRISTIN 03/12/25 11:22 & Questions: Date: 03/12/25 03/12/25 11:22 Time: 11:24 03/12/25 11:22 Patient unable to answer at this time (ie. confused, unrespo /Reproduction History /Reproductive History - grain ii farmworker: /Reproductive Hx- grain ii farmworker Hx Now No 03/12/25 11:22 Gestational Age (in weeks): EDC: Hx Hx Para Hx Section SAB No 03/12/25 11:22 [facility] Medical History (Updated 03/12/25 @ 11:22 by Susan Mckeon) Wears glasses Post-menopausal Alcohol use History of steroid therapy Back pain Gastric reflux Non-smoker Normal Holter exam History of echocardiogram Tilt table evaluation Cardiology follow-up encounter History of irregular heartbeat Vertigo Palpitations Arrhythmia Facial rash COVID-19 History of pulmonary embolism ABLA (acute blood loss anemia) Kidney stones Supraventricular tachycardia hemorrhage Migraines Placenta previa History of blood transfusion Anxiety Gestational diabetes Home Medications ?Medication ?Instructions ?Recorded ?Last Taken ?Type lorazepam 1 mg tablet 1 mg PO TID PRN anxiety 09/28/22 Unknown History ibuprofen 200 mg tablet 400 mg PO ONCE PRN pain 12/29/22 Unknown History cholecalciferol (vitamin D3) 1,250 1,250 mcg PO QWEEK 01/11/25 Unknown History mcg (50,000 unit) capsule cyclobenzaprine 5 mg tablet 5 mg PO QDAY PRN Shoulder pain 01/11/25 Unknown History Allergy/AdvReac Type Severity Reaction Status Date / Time adhesive Allergy Severe welts Verified 03/12/25 11:14 hydrocodone (From [place]) Allergy Mild violently Verified 03/12/25 11:14 ill acetaminophen (From [place]) Allergy violently Verified 03/12/25 11:14 ill soap Allergy Hives Verified 03/12/25 11:14 Family History Father Anxiety Diabetes Migraine Mother Hypertension CVA (cerebral vascular accident) Unknown Aneurysm Diabetes Mitral valve disorder Surgical History (Updated 03/12/25 @ 11:22 by Susan Mckeon) H/O lithotripsy S/P ureteral stent placement History of left oophorectomy Delivery by section Status post hysterectomy Intraoperative bladder injury H/O cardiac radiofrequency ablation (~07/2009) Previous section Social History Smoking Status: Former smoker how long ago did patient quit smokin alcohol intake: current alcohol intake frequency: a few times a month Alcohol type: beer substance use type: does not use caffeine: Yes Type: coffee Number of servings: 2 Audit: Pertinent Findings Pertinent Findings EKG Perinent findings: December 29, 2022. Sinus rhythm within normal limits. Echo (EF%) pertinent findings: January 21, 2023. EF is 60%. No aortic stenosis is noted. Consult pertinent findings: April 15, 2023. Gee BEJARANO. 1. Near syncope?acute-patient does have episodes of presyncope which appear to be vasovagal. Echo as above. Tilt table test was negative. She was encouraged to keep up with her fluid intake and monitor for concerning symptoms. 2. Palpitations?acute-occur quite frequently. Latest event monitor demonstrated normal sinus rhythm. Patient does have a history of panic attacks. Symptoms may be related most likely to anxiety. Additional pertinent findings: February 18, 2022. 24-hour Holter. Patient was in normal sinus rhythm the majority of the time. Rare PACs with a total burden of less than 0.01%. Rare PVCs with a total burden of less than 0.09%. No episodes of A-fib or flutter. No episodes of heart block or pauses. No episodes of ventricular tachycardia. Patient had 1 symptom which correlated with a sinus tachycardia and no arrhythmia. 1 asymptomatic run of SVT. January 25, 2023. Cardiac tilt table study was negative. Recommendation Anesthesia Recommendation Anesthesia recommendation: OPTIMIZED for anesthesia
--- NOTE | 2025-03-13 17:32 | PAT.ANESEVAL ---
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 When Was Last Pacemaker Check QUESTION #4 FULL TEXT: You/Your Family Experience fever (hyperthermia) with Anesthesia Last Oral Intake Last Oral intake: Last Oral Intake NPO since Meds taken in AM with sips of water? 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 Female Yes 03/12/25 11:22 HX of Motion Sickness No 03/12/25 11:22 HX of N/V After Surgery No 03/12/25 11:22 Non-Smoker Yes 03/12/25 11:22 Duration of Surgery greater No 03/12/25 11:22 than 60 minutes Number of Risk Factors 2 03/12/25 11:22 PONV Score Moderate Risk 03/12/25 11:22 Height & Weight Height & Weight: Anesthesia: Height & Weight Height 5 ft 8 in 04/15/23 13:00 Respiratory Assessment Respiratory Assessment - physical security manager: Respiratory Tract Infection Hx - physical security manager Hx Respiratory Tract Infection No 03/12/25 11:22 STOP Sleep Apnea STOP Sleep Apnea - physical security manager: STOP Sleep Apnea - physical security manager Hx Hypertension No 03/12/25 11:22 Hx Sleep Apnea No 03/12/25 11:22 CPAP No 03/12/25 11:22 BIPAP No 03/12/25 11:22 Do you snore loudly (louder No 03/12/25 11:22 than talking or can be heard Do you often feel tired/ No 03/12/25 11:22 fatigued/ sleepy during daytime? Has anyone observed you stop No 03/12/25 11:22 breathing during sleep? STOP Results Negative 03/12/25 11:22 QUESTION #5 FULL TEXT : Do you snore loudly (louder than talking or can be heard through closed doors)? 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 Specify any problems Hx of Preganancy in last 3 No 03/12/25 11:22 Months Nurse Filling Out Transfusion VCHRISTIN 03/12/25 11:22 & Questions: Date: 03/12/25 03/12/25 11:22 Time: 11:24 03/12/25 11:22 Patient unable to answer at this time (ie. 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: /Reproductive Hx- physical security manager Hx Now No 03/12/25 11:22 Gestational Age (in weeks): EDC: Hx Hx Para Hx Section SAB No 03/12/25 11:22 [facility] Medical History (Updated 03/12/25 @ 11:22 by Susan Mckeon) Wears glasses Post-menopausal Alcohol use History of steroid therapy Back pain Gastric reflux Non-smoker Normal Holter exam History of echocardiogram Tilt table evaluation Cardiology follow-up encounter History of irregular heartbeat Vertigo Palpitations Arrhythmia Facial rash COVID-19 History of pulmonary embolism ABLA (acute blood loss anemia) Kidney stones Supraventricular tachycardia hemorrhage Migraines Placenta previa History of blood transfusion Anxiety Gestational diabetes Home Medications ?Medication ?Instructions ?Recorded ?Last Taken ?Type lorazepam 1 mg tablet 1 mg PO TID PRN anxiety 09/28/22 Unknown History ibuprofen 200 mg tablet 400 mg PO ONCE PRN pain 12/29/22 Unknown History cholecalciferol (vitamin D3) 1,250 1,250 mcg PO QWEEK 01/11/25 Unknown History mcg (50,000 unit) capsule cyclobenzaprine 5 mg tablet 5 mg PO QDAY PRN Shoulder pain 01/11/25 Unknown History Allergy/AdvReac Type Severity Reaction Status Date / Time adhesive Allergy Severe welts Verified 03/12/25 11:14 hydrocodone (From [place]) Allergy Mild violently Verified 03/12/25 11:14 ill acetaminophen (From [place]) Allergy violently Verified 03/12/25 11:14 ill soap Allergy Hives Verified 03/12/25 11:14 Family History Father Anxiety Diabetes Migraine Mother Hypertension CVA (cerebral vascular accident) Unknown Aneurysm Diabetes Mitral valve disorder Surgical History (Updated 03/12/25 @ 11:22 by Susan Mckeon) H/O lithotripsy S/P ureteral stent placement History of left oophorectomy Delivery by section Status post hysterectomy Intraoperative bladder injury H/O cardiac radiofrequency ablation (~07/2009) Previous section Social History Smoking Status: Former smoker how long ago did patient quit smokin alcohol intake: current alcohol intake frequency: a few times a month Alcohol type: beer substance use type: does not use caffeine: Yes Type: coffee Number of servings: 2 Audit: Pertinent Findings Pertinent Findings EKG Perinent findings: December 29, 2022. Sinus rhythm within normal limits. Echo (EF%) pertinent findings: January 21, 2023. EF is 60%. No aortic stenosis is noted. Consult pertinent findings: April 15, 2023. Gee BEJARANO. 1. Near syncope?acute-patient does have episodes of presyncope which appear to be vasovagal. Echo as above. Tilt table test was negative. She was encouraged to keep up with her fluid intake and monitor for concerning symptoms. 2. Palpitations?acute-occur quite frequently. Latest event monitor demonstrated normal sinus rhythm. Patient does have a history of panic attacks. Symptoms may be related most likely to anxiety. Additional pertinent findings: February 18, 2022. 24-hour Holter. Patient was in normal sinus rhythm the majority of the time. Rare PACs with a total burden of less than 0.01%. Rare PVCs with a total burden of less than 0.09%. No episodes of A-fib or flutter. No episodes of heart block or pauses. No episodes of ventricular tachycardia. Patient had 1 symptom which correlated with a sinus tachycardia and no arrhythmia. 1 asymptomatic run of SVT. January 25, 2023. Cardiac tilt table study was negative. Recommendation Anesthesia Recommendation Anesthesia recommendation: OPTIMIZED for anesthesia
[2025-03-15] VITALS (8 sets, daily range): BP systolic 108–130; BP diastolic 71–82; PULSE 69–80; RESP 16; TEMP 36.3–36.8; O2SAT 99–100; BMI 28.0
[2025-03-15] MEDS: Lactated Ringers 1,000 ML 15 ML IV (11:18)
--- NOTE | 2025-03-15 11:51 | PRE.ANES_ITS ---
ASA Classification* ASA Classification ASA Classification: 2 Assessment & Plan Anesthesia* Anesthesia Assessment Anesthesia Assessment: Discussed sedation and/or anesthesia options, risks, benefits, and alternatives with patient/parents/legal guardian/POA. Questions invited. The patient/parents/legal guardian/POA seems to understand and agrees to proceed with anesthesia plan. Reviewed the physical assessment, medical history, allergy history and patient home medications list prior to surgery/procedure/anesthetic and documented any changes. Performed airway and anesthesia risk assessments. Anesthesia Type Anesthesia Type: MAC History Source History Obtained from:: Patient and Chart Anesthesia Focused Assessment* Temperature: 97.4 F Pulse Rate: 72 Blood Pressure: 130/71 Respiratory Rate: 16 Pulse Ox: 100 Airway Assessment Mouth opens: >3 cm Mallampati Score: II Teeth Condition: Intact Neck Range of motion (ROM): Full ROM Labs Anesthesia Preop lab: CBC WBC 8.2 K/mm3 (4.4-11.0) 01/25/23 08:56 01/25/23 RBC 4.83 M/mm3 (4.2-5.4) 01/25/23 08:56 01/25/23 Hgb 14.4 g/dL (12.0-15.0) 01/25/23 08:56 01/25/23 Hct 43.5 % (37-47) 01/25/23 08:56 01/25/23 Plt Count 326 K/mm3 (150-450) 01/25/23 08:56 01/25/23 CHEMISTRY Potassium 4.4 mmol/L (3.3-5.1) 01/11/25 13:43 01/11/25 Sodium 137 mmol/L (133-145) 01/11/25 13:43 01/11/25 BUN 10 mg/dL (4-19) 01/11/25 13:43 01/11/25 Creatinine 0.80 mg/dL (0.70-1.20) 01/11/25 13:43 01/11/25 Glucose 95 mg/dL (70-99) 01/11/25 13:43 01/11/25 POC Glucose 220 mg/dL (70-110) H 07/15/21 20:29 07/15/21 TSH 0.66 uIU/mL (0.358-3.74) 05/01/14 16:19 COAG PT 20.9 SECONDS (11.7-14.9) H 09/09/21 21:19 08/22 05/13 HCG, Quant < 1 mIU/mL (<9 non-preg) 08/09/18 05:02 Urine Test Negative Negative 11/22/18 21:50 11/22/18 Pre-Assessment Diagnosis/Proposed Procedure Planned Operative Procedure(s): COLONOSCOPY/EGD Anesthesia History Anesthesia History - artist color separation: Anesthesia History - artist color separation Hx Hospitalization No 03/12/25 11:22 Any Problems With Anesthesia No 03/12/25 11:22 Cholinesterase deficiency No 03/12/25 11:22 You/Your Family Experience No 03/12/25 11:22 fever (hyperthermia) with Relationship Recent Exposure to Contagious No 03/15/25 11:03 Disease Does patient have nerve No 03/12/25 11:22 stimulator Patient instructed to have device shut off --Does patient have Pacemaker No 03/15/25 11:03 or ICD? When Was Last Pacemaker Check QUESTION #4 FULL TEXT: You/Your Family Experience fever (hyperthermia) with Anesthesia Last Oral Intake Last Oral intake: Last Oral Intake NPO since 08:00 03/15/25 11:03 Meds taken in AM with sips of No 03/15/25 11:03 water? Meds patient instructed to take am of surgery PONV PONV - artist color separation: PONV - artist color separation Female Yes 03/12/25 11:22 HX of Motion Sickness No 03/12/25 11:22 HX of N/V After Surgery No 03/12/25 11:22 Non-Smoker Yes 03/12/25 11:22 Duration of Surgery greater No 03/12/25 11:22 than 60 minutes Number of Risk Factors 2 03/12/25 11:22 PONV Score Moderate Risk 03/12/25 11:22 Height & Weight Height & Weight: Anesthesia: Height & Weight Height 5 ft 9 in 03/15/25 11:03 Weight: 86 kg 03/15/25 11:03 Body Mass Index (BMI) 28.0 03/15/25 11:03 Respiratory Assessment Respiratory Assessment - artist color separation: Respiratory Tract Infection Hx - artist color separation Hx Respiratory Tract Infection No 03/12/25 11:22 STOP Sleep Apnea STOP Sleep Apnea - artist color separation: STOP Sleep Apnea - artist color separation Hx Hypertension No 03/12/25 11:22 Hx Sleep Apnea No 03/12/25 11:22 CPAP No 03/12/25 11:22 BIPAP No 03/12/25 11:22 Do you snore loudly (louder No 03/12/25 11:22 than talking or can be heard Do you often feel tired/ No 03/12/25 11:22 fatigued/ sleepy during daytime? Has anyone observed you stop No 03/12/25 11:22 breathing during sleep? STOP Results Negative 03/12/25 11:22 QUESTION #5 FULL TEXT : Do you snore loudly (louder than talking or can be heard through closed doors)? 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 Specify any problems Hx of Preganancy in last 3 No 03/12/25 11:22 Months Nurse Filling Out Transfusion VCHRISTIN 03/12/25 11:22 & Questions: Date: 03/12/25 03/12/25 11:22 Time: 11:24 03/12/25 11:22 Patient unable to answer at this time (ie. confused, unrespo /Reproduction History /Reproductive History - artist color separation: /Reproductive Hx- artist color separation Hx Now No 03/12/25 11:22 Gestational Age (in weeks): EDC: Hx Hx Para Hx Section SAB No 03/12/25 11:22 Active Medications Active Medications: Current Medications Generic Name Dose Route Start Last Admin Trade Name Freq PRN Reason Stop Dose Admin Lactated Ringer's 1,000 mls @ 15 mls/hr 03/15/25 11:00 03/15/25 11:18 IV 15 mls/hr .Q48H NATALIE Administration PFSH Medical History Wears glasses Post-menopausal Alcohol use History of steroid therapy Back pain Gastric reflux Non-smoker Normal Holter exam History of echocardiogram Tilt table evaluation Cardiology follow-up encounter History of irregular heartbeat Vertigo Palpitations Arrhythmia Facial rash COVID-19 History of pulmonary embolism ABLA (acute blood loss anemia) Kidney stones Supraventricular tachycardia hemorrhage Migraines Placenta previa History of blood transfusion Anxiety Gestational diabetes Home Medications ?Medication ?Instructions ?Recorded ?Last Taken ?Type lorazepam 1 mg tablet 1 mg PO TID PRN anxiety 03/13 Unknown History ibuprofen 200 mg tablet 400 mg PO ONCE PRN pain 12/20 Unknown History cholecalciferol (vitamin D3) 1,250 1,250 mcg PO QWEEK 01/11/25 Unknown History mcg (50,000 unit) capsule cyclobenzaprine 5 mg tablet 5 mg PO QDAY PRN Shoulder pain 01/11/25 Unknown History Allergy/AdvReac Type Severity Reaction Status Date / Time adhesive Allergy Severe welts Verified 03/15/25 11:02 hydrocodone (From [place]) Allergy Mild violently Verified 03/15/25 11:02 ill acetaminophen (From [place]) Allergy violently Verified 03/15/25 11:02 ill soap Allergy Hives Verified 03/15/25 11:02 Family History Father Anxiety Diabetes Migraine Mother Hypertension CVA (cerebral vascular accident) Unknown Aneurysm Diabetes Mitral valve disorder Surgical History H/O lithotripsy S/P ureteral stent placement History of left oophorectomy Delivery by section Status post hysterectomy Intraoperative bladder injury H/O cardiac radiofrequency ablation (~07/2009) Previous section Social History Smoking Status: Former smoker how long ago did patient quit smokin alcohol intake: current alcohol intake frequency: a few times a month Alcohol type: beer substance use type: does not use caffeine: Yes Type: coffee Number of servings: 2 Review of Systems (Anesthesia) ROS Narrative System reviewed and no additional complaints, except as documented.
--- NOTE | 2025-03-15 11:51 | PRE.ANES_ITS ---
ASA Classification* ASA Classification ASA Classification: 2 Assessment & Plan Anesthesia* Anesthesia Assessment Anesthesia Assessment: Discussed sedation and/or anesthesia options, risks, benefits, and alternatives with patient/parents/legal guardian/POA. Questions invited. The patient/parents/legal guardian/POA seems to understand and agrees to proceed with anesthesia plan. Reviewed the physical assessment, medical history, allergy history and patient home medications list prior to surgery/procedure/anesthetic and documented any changes. Performed airway and anesthesia risk assessments. Anesthesia Type Anesthesia Type: MAC History Source History Obtained from:: Patient and Chart Anesthesia Focused Assessment* Temperature: 97.4 F Pulse Rate: 72 Blood Pressure: 130/71 Respiratory Rate: 16 Pulse Ox: 100 Airway Assessment Mouth opens: >3 cm Mallampati Score: II Teeth Condition: Intact Neck Range of motion (ROM): Full ROM Labs Anesthesia Preop lab: CBC WBC 8.2 K/mm3 (4.4-11.0) 01/25/23 08:56 01/25/23 RBC 4.83 M/mm3 (4.2-5.4) 01/25/23 08:56 01/25/23 Hgb 14.4 g/dL (12.0-15.0) 01/25/23 08:56 01/25/23 Hct 43.5 % (37-47) 01/25/23 08:56 01/25/23 Plt Count 326 K/mm3 (150-450) 01/25/23 08:56 01/25/23 CHEMISTRY Potassium 4.4 mmol/L (3.3-5.1) 01/11/25 13:43 01/11/25 Sodium 137 mmol/L (133-145) 01/11/25 13:43 01/11/25 BUN 10 mg/dL (4-19) 01/11/25 13:43 01/11/25 Creatinine 0.80 mg/dL (0.70-1.20) 01/11/25 13:43 01/11/25 Glucose 95 mg/dL (70-99) 01/11/25 13:43 01/11/25 POC Glucose 220 mg/dL (70-110) H 07/15/21 20:29 07/15/21 TSH 0.66 uIU/mL (0.358-3.74) 05/01/14 16:19 COAG PT 20.9 SECONDS (11.7-14.9) H 09/09/21 21:19 08/22 05/13 HCG, Quant < 1 mIU/mL (<9 non-preg) 08/09/18 05:02 Urine Test Negative Negative 11/22/18 21:50 11/22/18 Pre-Assessment Diagnosis/Proposed Procedure Planned Operative Procedure(s): COLONOSCOPY/EGD Anesthesia History Anesthesia History - betting agency counter clerk: Anesthesia History - betting agency counter clerk Hx Hospitalization No 03/12/25 11:22 Any Problems With Anesthesia No 03/12/25 11:22 Cholinesterase deficiency No 03/12/25 11:22 You/Your Family Experience No 03/12/25 11:22 fever (hyperthermia) with Relationship Recent Exposure to Contagious No 03/15/25 11:03 Disease Does patient have nerve No 03/12/25 11:22 stimulator Patient instructed to have device shut off --Does patient have Pacemaker No 03/15/25 11:03 or ICD? When Was Last Pacemaker Check QUESTION #4 FULL TEXT: You/Your Family Experience fever (hyperthermia) with Anesthesia Last Oral Intake Last Oral intake: Last Oral Intake NPO since 08:00 03/15/25 11:03 Meds taken in AM with sips of No 03/15/25 11:03 water? Meds patient instructed to take am of surgery PONV PONV - betting agency counter clerk: PONV - betting agency counter clerk Female Yes 03/12/25 11:22 HX of Motion Sickness No 03/12/25 11:22 HX of N/V After Surgery No 03/12/25 11:22 Non-Smoker Yes 03/12/25 11:22 Duration of Surgery greater No 03/12/25 11:22 than 60 minutes Number of Risk Factors 2 03/12/25 11:22 PONV Score Moderate Risk 03/12/25 11:22 Height & Weight Height & Weight: Anesthesia: Height & Weight Height 5 ft 9 in 03/15/25 11:03 Weight: 86 kg 03/15/25 11:03 Body Mass Index (BMI) 28.0 03/15/25 11:03 Respiratory Assessment Respiratory Assessment - betting agency counter clerk: Respiratory Tract Infection Hx - betting agency counter clerk Hx Respiratory Tract Infection No 03/12/25 11:22 STOP Sleep Apnea STOP Sleep Apnea - betting agency counter clerk: STOP Sleep Apnea - betting agency counter clerk Hx Hypertension No 03/12/25 11:22 Hx Sleep Apnea No 03/12/25 11:22 CPAP No 03/12/25 11:22 BIPAP No 03/12/25 11:22 Do you snore loudly (louder No 03/12/25 11:22 than talking or can be heard Do you often feel tired/ No 03/12/25 11:22 fatigued/ sleepy during daytime? Has anyone observed you stop No 03/12/25 11:22 breathing during sleep? STOP Results Negative 03/12/25 11:22 QUESTION #5 FULL TEXT : Do you snore loudly (louder than talking or can be heard through closed doors)? 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 Specify any problems Hx of Preganancy in last 3 No 03/12/25 11:22 Months Nurse Filling Out Transfusion VCHRISTIN 03/12/25 11:22 & Questions: Date: 03/12/25 03/12/25 11:22 Time: 11:24 03/12/25 11:22 Patient unable to answer at this time (ie. confused, unrespo /Reproduction History /Reproductive History - betting agency counter clerk: /Reproductive Hx- betting agency counter clerk Hx Now No 03/12/25 11:22 Gestational Age (in weeks): EDC: Hx Hx Para Hx Section SAB No 03/12/25 11:22 Active Medications Active Medications: Current Medications Generic Name Dose Route Start Last Admin Trade Name Freq PRN Reason Stop Dose Admin Lactated Ringer's 1,000 mls @ 15 mls/hr 03/15/25 11:00 03/15/25 11:18 IV 15 mls/hr .Q48H NATALIE Administration PFSH Medical History Wears glasses Post-menopausal Alcohol use History of steroid therapy Back pain Gastric reflux Non-smoker Normal Holter exam History of echocardiogram Tilt table evaluation Cardiology follow-up encounter History of irregular heartbeat Vertigo Palpitations Arrhythmia Facial rash COVID-19 History of pulmonary embolism ABLA (acute blood loss anemia) Kidney stones Supraventricular tachycardia hemorrhage Migraines Placenta previa History of blood transfusion Anxiety Gestational diabetes Home Medications ?Medication ?Instructions ?Recorded ?Last Taken ?Type lorazepam 1 mg tablet 1 mg PO TID PRN anxiety 03/13 Unknown History ibuprofen 200 mg tablet 400 mg PO ONCE PRN pain 12/20 Unknown History cholecalciferol (vitamin D3) 1,250 1,250 mcg PO QWEEK 01/11/25 Unknown History mcg (50,000 unit) capsule cyclobenzaprine 5 mg tablet 5 mg PO QDAY PRN Shoulder pain 01/11/25 Unknown History Allergy/AdvReac Type Severity Reaction Status Date / Time adhesive Allergy Severe welts Verified 03/15/25 11:02 hydrocodone (From [place]) Allergy Mild violently Verified 03/15/25 11:02 ill acetaminophen (From [place]) Allergy violently Verified 03/15/25 11:02 ill soap Allergy Hives Verified 03/15/25 11:02 Family History Father Anxiety Diabetes Migraine Mother Hypertension CVA (cerebral vascular accident) Unknown Aneurysm Diabetes Mitral valve disorder Surgical History H/O lithotripsy S/P ureteral stent placement History of left oophorectomy Delivery by section Status post hysterectomy Intraoperative bladder injury H/O cardiac radiofrequency ablation (~07/2009) Previous section Social History Smoking Status: Former smoker how long ago did patient quit smokin alcohol intake: current alcohol intake frequency: a few times a month Alcohol type: beer substance use type: does not use caffeine: Yes Type: coffee Number of servings: 2 Review of Systems (Anesthesia) ROS Narrative System reviewed and no additional complaints, except as documented.
--- NOTE | 2025-03-15 11:56 | PCM.HP.STD ---
HPI - General General Date of Admission: 03/15/25 Date of Service: 03/15/25 Chief Complaint: diarrhea HPI Narrative ANASTASIIA ESTRELLA, is a 34 F who presents for diarrhea Pt here today for colonoscopy. She has a family hx of colon cancer. Her grandmother was diagnosed with colon cancer at age 40. Her father started having at age 30 and has had many pre cancerous polyps. She endorses random occurrences of diarrhea a few times per week. She notices this can be triggered after drinking water. Pt recently had blood work with her PCP which showed elevated liver enzymes with is something she had while but stabilized after until now. SHe underwent an US which showed fatty liver. Since finding out this diagnosed she has attempted to change her lifestyle with a healthy diet with veggies and meat. SHe has heartburn a few times per week and will take famotidine as needs. She has a hx of smoking but stopped when she turned 30. ROS Const Constitutional: Positive for fatigue, headache(s) and weight change ENT ENT: Positive for headache(s) Gastro GI: Positive for abdominal pain, diarrhea and heartburn Musc Musculoskeletal: Positive for back pain, stiffness and tingling Neuro Neurology: Positive for headache(s) and tingling Psych Psychiatric: Positive for anxiety Endo Endocrine: Positive for fatigue and weight change Exam Const General: cooperative and healthy appearing HENMS Head: normal to inspection Eyes General: appearance normal, both eyes and all related structures Neck Neck: normal visual inspection Chest Chest palpation & inspection: normal inspection of the chest Resp Effort & Inspection: normal respiratory effort and able to speak in complete sentences Cardio Rate: regular rate Rhythm: regular rhythm GI Inspection: normal to inspection Auscultation: normal bowel sounds Palpation: soft, no hepatosplenomegaly, not firm and no guarding Assessment and Plan Assessment and Plan (1) Fatty liver: Status: Acute Plan: Anastasiia is a 34 yo female pt here today for screening colonoscopy as she has family hx of colon cancer. Pt grandmother was diagnosed with colon cancer at age 40 and her father has been having colonoscopies since his 30s with pre cancerous polyps. She endorses intermittent episodes of diarrhea a few times per week. SHe will be scheduled for colonoscopy today Pt also having heartburn for many years happening a few times per week. She takes famotine PRN. SHe does having a hx of smoking but stopped at age 30. She will undergo EGD at the same time as her colonoscopy to rule out inflammation, ulcer or Barrets esophagus. Pt recently diagnosed with fatty liver after seeing her PCP. Blood work showed elevated liver enzymes and US was ordered which showed fatty liver. She endorses having elevated liver enzymes after giving to her child about 3 years ago but have not been this elevated since. She has been eating a healthy diet with meat and veggies since findings this out. SHe will have a elastography to quantify her stiffness. I have ordered CMP and A1C for monitoring. (2) GERD (gastroesophageal reflux disease): Status: Acute (3) Diarrhea: Status: Acute (4) Family hx of colon cancer: Status: Acute Orders: Orders Hemoglobin A1c Today K76.0 - Fatty (change of) liver, not elsewhere classified Comprehensive Metabolic Profil Today K76.0 - Fatty (change of) liver, not elsewhere classified ABD Limited w/ Elastography Today K76.0 - Fatty (change of) liver, not elsewhere classified [facility] Medical History Wears glasses Post-menopausal Alcohol use History of steroid therapy Back pain Gastric reflux Non-smoker Normal Holter exam History of echocardiogram Tilt table evaluation Cardiology follow-up encounter History of irregular heartbeat Vertigo Palpitations Arrhythmia Facial rash COVID-19 History of pulmonary embolism ABLA (acute blood loss anemia) Kidney stones Supraventricular tachycardia hemorrhage Migraines Placenta previa History of blood transfusion Anxiety Gestational diabetes Home Medications ?Medication ?Instructions ?Recorded ?Last Taken ?Type lorazepam 1 mg tablet 1 mg PO TID PRN anxiety 09/28/22 Unknown History ibuprofen 200 mg tablet 400 mg PO ONCE PRN pain 12/29/22 Unknown History cholecalciferol (vitamin D3) 1,250 1,250 mcg PO QWEEK 01/11/25 Unknown History mcg (50,000 unit) capsule cyclobenzaprine 5 mg tablet 5 mg PO QDAY PRN Shoulder pain 01/11/25 Unknown History Allergy/AdvReac Type Severity Reaction Status Date / Time adhesive Allergy Severe welts Verified 03/15/25 11:02 hydrocodone (From [place]) Allergy Mild violently Verified 03/15/25 11:02 ill acetaminophen (From [place]) Allergy violently Verified 03/15/25 11:02 ill soap Allergy Hives Verified 03/15/25 11:02 Family History Father Anxiety Diabetes Migraine Mother Hypertension CVA (cerebral vascular accident) Unknown Aneurysm Diabetes Mitral valve disorder Surgical History H/O lithotripsy S/P ureteral stent placement History of left oophorectomy Delivery by section Status post hysterectomy Intraoperative bladder injury H/O cardiac radiofrequency ablation (~07/2009) Previous section Social History Smoking Status: Former smoker how long ago did patient quit smokin alcohol intake: current alcohol intake frequency: a few times a month Alcohol type: beer substance use type: does not use caffeine: Yes Type: coffee Number of servings: 2 ROS Constitutional Constitutional: Denies fatigue, fever(s), poor appetite, weight gain or weight loss Gastrointestinal Gastrointestinal: Denies belching, bloating, change in bowel habits, change in stool character, chewing difficulty, coffee ground emesis, constipation, cramping, diarrhea, dyspepsia, dysphagia, early satiety, excessive flatus, fecal incontinence, heartburn, hematemesis, hematochezia, hemorrhoids, loose stools, melena, nausea, odynophagia, rectal bleeding, tenesmus, vomiting or weight changes Vital Signs Vital Signs Vital Signs: 03/15/25 11:03 03/15/25 11:03 Temperature 98.2 F Temperature Source Temporal Pulse Rate 79 Respiratory Rate 16 Respiratory Pattern Normal Blood Pressure 119/76 Blood Pressure Mean 90 Blood Pressure Source Monitor Blood Pressure Position Semi-Fowlers Blood Pressure Location Left Arm Pulse Ox 99 Oxygen Delivery Method Room Air Weight Weight: 189 lb 9.561 oz Body Mass Index (BMI) 28.0 Physical Exam Const alert, oriented x3, no apparent distress and healthy appearing General Appearance: cooperative GI normal to inspection, nondistended, normoactive bowel sounds, soft to palpation, non-tender and non-distended Percussion: normal to percussion Rectal Exam: deferred Assessment & Plan Assessment/Plan (1) Diarrhea: (2) Family hx of colon cancer: (3) GERD (gastroesophageal reflux disease): PLAN: Assessment and Plan Assessment and Plan (1) Fatty liver: Status: Acute Plan: Anastasiia is a 34 yo female pt here today for screening colonoscopy as she has family hx of colon cancer. Pt grandmother was diagnosed with colon cancer at age 40 and her father has been having colonoscopies since his 30s with pre cancerous polyps. She endorses intermittent episodes of diarrhea a few times per week. SHe will be scheduled for colonoscopy today Pt also having heartburn for many years happening a few times per week. She takes famotine PRN. SHe does having a hx of smoking but stopped at age 30. She will undergo EGD at the same time as her colonoscopy to rule out inflammation, ulcer or Barrets esophagus. Pt recently diagnosed with fatty liver after seeing her PCP. Blood work showed elevated liver enzymes and US was ordered which showed fatty liver. She endorses having elevated liver enzymes after giving to her child about 3 years ago but have not been this elevated since. She has been eating a healthy diet with meat and veggies since findings this out. SHe will have a elastography to quantify her stiffness. I have ordered CMP and A1C for monitoring. (2) GERD (gastroesophageal reflux disease): Status: Acute (3) Diarrhea: Status: Acute (4) Family hx of colon cancer: Status: Acute Orders: Orders Hemoglobin A1c Today K76.0 - Fatty (change of) liver, not elsewhere classified Comprehensive Metabolic Profil Today K76.0 - Fatty (change of) liver, not elsewhere classified ABD Limited w/ Elastography Today K76.0 - Fatty (change of) liver, not elsewhere classified
--- NOTE | 2025-03-15 12:00 | EGD_PTH ---
PATIENT: ANASTASIIA ESTRELLA LOC: [facility] U#:[id number] AGE/SX: 34/F ROOM: RE03/15/[address]: Dr. Dinh Landers DO : 1990 BED: DIS: 03/15/2025 SPEC #: [id number] RECD: 03/15/25 13:50 STATUS: HARMONY MARCIAL #: [id number] MATTY: 03/15/25 12:[address]: Dinh Landers DEPT: SURGICAL PATHOLOGY RECD BY: Hunter Harden ENTERED: 03/15/25 15:21 SP TYPE: EGD BIOPSY OT DR: Kathi Mooney, ERP DEVELOPER-C Tissues: A - Duodenum, NOS B - Gastric mucous membrane C - Gastric mucous membrane D - Esophagus, NOS E - Ileum, NOS F - COLON BIOPSY Procedures: Immunohistochemical Stains Surgery Specimen Level IV HEADER OPERATION: Colonoscopy with biopsy, EGD with biopsy PRE-OP DIAGNOSIS: Diarrhea, family history of colon cancer, GERD TISSUE SUBMITTED: A- Duodenum biopsy, B- Gastric antrum biopsy, C- Gastric body biopsy, D- Distal esophagus biopsy, E- Terminal ileum biopsy, F- Random colon biopsy MICROSCOPIC DIAGNOSIS A. Duodenum, biopsy: - Normal villous architecture with Mallory gland hyperplasia, acute inflammation, and gastric mucin cell metaplasia, suggestive of peptic injury. - Negative for increased intraepithelial lymphocytes. B. Gastric antrum, biopsy: - Active chronic gastritis. - Positive for Helicobacter-like organisms (H&E stain). C. Gastric body, biopsy: - Oxyntic mucosa with chronic gastritis. - IHC positive for H.pylori organisms. D. Distal esophagus, biopsy: - Squamocolumnar mucosa with reactive changes. - Negative for goblet cell metaplasia. E. Terminal ileum, biopsy: - Normal villous morphology with focal prominent mucosal lymphoid aggregates, favor reactive. F. Colon, random, biopsy: - Hyperplastic polyp (one fragment). - Normal colonic mucosa without evidence of microscopic colitis (multiple fragments). MICROSCOPIC DESCRIPTION Slides are reviewed. All matched controls reacted appropriately. These tests were developed and their performance characteristics determined by [facility]. They may not have been cleared or approved by the U.S. Food and Drug Administration. The FDA has determined that such clearance or approval is not necessary. The above immunohistochemical/dualISH markers are viewed by the Pathologist. GROSS DESCRIPTION A. Received in fixative is one container labeled with the patient's name and designated Duodenum biopsy. The specimen consists of three irregular fragments of light brasher soft tissue that in aggregate measure 0.3 to 0.4 cm. The specimen is totally submitted in one cassette. B. Received in fixative is one container labeled with the patient's name and designated Gastric antrum biopsy. The specimen consists of one irregular fragment of light brasher soft tissue that measures 0.9 cm. The specimen is totally submitted in one cassette. C. Received in fixative is one container labeled with the patient's name and designated Gastric body biopsy. The specimen consists of four irregular fragments of light brasher soft tissue that in aggregate measure <0.1 to 0.5 cm. The specimen is totally submitted in one cassette. D. Received in fixative is one container labeled with the patient's name and designated Distal esophagus biopsy. The specimen consists of four irregular fragments of light brasher soft tissue that in aggregate measure <0.1 to 0.4 cm. The specimen is totally submitted in one cassette. E. Received in fixative is one container labeled with the patient's name and designated Terminal ileum biopsy. The specimen consists of four irregular fragments of light brasher soft tissue that in aggregate measure 0.3 to 0.5 cm. The specimen is totally submitted in one cassette. F. Received in fixative is one container labeled with the patient's name and designated Random colon biopsy. The specimen consists of three irregular fragments of light brasher soft tissue that in aggregate measure 0.4 to 0.5 cm. The specimen is totally submitted in one cassette. [place] 03/15/2025 CPT:08727a1,45283
--- NOTE | 2025-03-15 12:00 | EGD_PTH ---
PATIENT: ANASTASIIA ESTRELLA LOC: [facility] U#:[id number] AGE/SX: 34/F ROOM: RE03/15/[address]: Dr. Dinh Landers DO : 1990 BED: DIS: 03/15/2025 SPEC #: [id number] RECD: 03/15/25 13:50 STATUS: HARMONY MARCIAL #: [id number] MATTY: 03/15/25 12:[address]: Dinh Landers DEPT: SURGICAL PATHOLOGY RECD BY: Hunter Harden ENTERED: 03/15/25 15:21 SP TYPE: EGD BIOPSY OT DR: Kathi Mooney, LIVESTOCK SPECULATOR-C Tissues: A - Duodenum, NOS B - Gastric mucous membrane C - Gastric mucous membrane D - Esophagus, NOS E - Ileum, NOS F - COLON BIOPSY Procedures: Immunohistochemical Stains Surgery Specimen Level IV HEADER OPERATION: Colonoscopy with biopsy, EGD with biopsy PRE-OP DIAGNOSIS: Diarrhea, family history of colon cancer, GERD TISSUE SUBMITTED: A- Duodenum biopsy, B- Gastric antrum biopsy, C- Gastric body biopsy, D- Distal esophagus biopsy, E- Terminal ileum biopsy, F- Random colon biopsy MICROSCOPIC DIAGNOSIS A. Duodenum, biopsy: - Normal villous architecture with Mallory gland hyperplasia, acute inflammation, and gastric mucin cell metaplasia, suggestive of peptic injury. - Negative for increased intraepithelial lymphocytes. B. Gastric antrum, biopsy: - Active chronic gastritis. - Positive for Helicobacter-like organisms (H&E stain). C. Gastric body, biopsy: - Oxyntic mucosa with chronic gastritis. - IHC positive for H.pylori organisms. D. Distal esophagus, biopsy: - Squamocolumnar mucosa with reactive changes. - Negative for goblet cell metaplasia. E. Terminal ileum, biopsy: - Normal villous morphology with focal prominent mucosal lymphoid aggregates, favor reactive. F. Colon, random, biopsy: - Hyperplastic polyp (one fragment). - Normal colonic mucosa without evidence of microscopic colitis (multiple fragments). MICROSCOPIC DESCRIPTION Slides are reviewed. All matched controls reacted appropriately. These tests were developed and their performance characteristics determined by [facility]. They may not have been cleared or approved by the U.S. Food and Drug Administration. The FDA has determined that such clearance or approval is not necessary. The above immunohistochemical/dualISH markers are viewed by the Pathologist. GROSS DESCRIPTION A. Received in fixative is one container labeled with the patient's name and designated Duodenum biopsy. The specimen consists of three irregular fragments of light brasher soft tissue that in aggregate measure 0.3 to 0.4 cm. The specimen is totally submitted in one cassette. B. Received in fixative is one container labeled with the patient's name and designated Gastric antrum biopsy. The specimen consists of one irregular fragment of light brasher soft tissue that measures 0.9 cm. The specimen is totally submitted in one cassette. C. Received in fixative is one container labeled with the patient's name and designated Gastric body biopsy. The specimen consists of four irregular fragments of light brasher soft tissue that in aggregate measure <0.1 to 0.5 cm. The specimen is totally submitted in one cassette. D. Received in fixative is one container labeled with the patient's name and designated Distal esophagus biopsy. The specimen consists of four irregular fragments of light brasher soft tissue that in aggregate measure <0.1 to 0.4 cm. The specimen is totally submitted in one cassette. E. Received in fixative is one container labeled with the patient's name and designated Terminal ileum biopsy. The specimen consists of four irregular fragments of light brasher soft tissue that in aggregate measure 0.3 to 0.5 cm. The specimen is totally submitted in one cassette. F. Received in fixative is one container labeled with the patient's name and designated Random colon biopsy. The specimen consists of three irregular fragments of light brasher soft tissue that in aggregate measure 0.4 to 0.5 cm. The specimen is totally submitted in one cassette. [place] 03/15/2025 CPT:[id number]
--- NOTE | 2025-03-15 12:35 | PCM.POST.ANE ---
Anesthesia: Postop Eval I Current Vital Signs Temperature: 97.4 F Pulse Rate: 72 Blood Pressure: 130/71 Respiratory Rate: 16 Pulse Ox: 100 Oxygen Delivery Method: Room Air Assessment Airway patent: Yes Spontaneous unlabored respirations: Yes Mental status: Awake and Calm nausea: No Vomiting: No Anesthesia Complication: No Fluid Hydration Crystalloid volume administer (ml): 600 Total IV fluid infused: 600 Progress Note Anesthesia document: Postop Eval 1 completed: Yes
--- NOTE | 2025-03-15 12:38 | OP.PROVAT_ITS ---
03/15/2025 Kathi Mooney Re : Upper GI endoscopy procedure for Gely Keenan Dear [place]ica This procedure was performed on Saturday, March 15, 2025. My impressions and recommendations are as follows: Impressions : - LA Grade A reflux esophagitis with no bleeding. Biopsied. - Erythematous mucosa in the gastric body. Biopsied. - Erythematous duodenopathy. Biopsied. Recommendations : - Discharge patient to home. - Resume previous diet. - Continue present medications. - Await pathology results. My findings are described in the full procedure note, which is enclosed. If I can be of further assistance, please feel free to contact me at . Sincerely, Dinh Landers, 03/15/2025 12:38:02 PM This report has been signed electronically.
--- NOTE | 2025-03-15 12:38 | OP.EGD_ITS ---
Patient Name: Gely Keenan Procedure Date: 03/15/2025 11:45 AM Date of : 1990 Age: 34 Procedure: Upper GI endoscopy Indications: Epigastric abdominal pain Providers: Dinh Landers DO Referring MD: Kathi Mooney Medicines: Monitored Anesthesia Care Patient Profile: This is a 34 year old female. Refer to note in patient chart for documentation of history and physical. Patient has symptoms of chronic epigastric abdominal pain, chronic dyspepsia, chronic heartburn and chronic nausea. Complications: No immediate complications. Procedure: Pre-Anesthesia Assessment: - Prior to the procedure, a History and Physical was performed, and patient medications and allergies were reviewed. The patient is competent. The risks and benefits of the procedure and the sedation options and risks were discussed with the patient. All questions were answered and informed consent was obtained. Patient identification and proposed procedure were verified by the physician in the pre-procedure area. Mental Status Examination: alert and oriented. Airway Examination: normal oropharyngeal airway and neck mobility. Respiratory Examination: clear to auscultation. CV Examination: normal. Prophylactic Antibiotics: The patient does not require prophylactic antibiotics. Prior Anticoagulants: The patient has taken no anticoagulant or antiplatelet agents except for NSAID medication. ASA Grade Assessment: II - A patient with mild systemic disease. After reviewing the risks and benefits, the patient was deemed in satisfactory condition to undergo the procedure. The anesthesia plan was to use monitored anesthesia care (MAC). Immediately prior to administration of medications, the patient was re-assessed for adequacy to receive sedatives. The heart rate, respiratory rate, oxygen saturations, blood pressure, adequacy of pulmonary ventilation, and response to care were monitored throughout the procedure. The physical status of the patient was re-assessed after the procedure. After obtaining informed consent, the endoscope was passed under direct vision. Throughout the procedure, the patient's blood pressure, pulse, and oxygen saturations were monitored continuously. The Colonoscope was introduced through the mouth, and advanced to the fourth part of the duodenum. Small bowel enteroscopy was deemed necessary. The upper GI endoscopy was accomplished without difficulty. The patient tolerated the procedure well. Scope In: 12:07:20 PM Scope Out: 12:12:41 PM Total Procedure Duration Time 0 hours 5 minutes 21 seconds Findings: LA Grade A (one or more mucosal breaks less than 5 mm, not extending between tops of 2 mucosal folds) esophagitis with no bleeding was found. Biopsies were taken with a cold forceps for histology. Biopsies were taken with a cold forceps for histology. Verification of patient identification for the specimen was done. Estimated blood loss was minimal. Patchy mildly erythematous mucosa without bleeding was found in the gastric body. Biopsies were taken with a cold forceps for histology. Biopsies were taken with a cold forceps for Helicobacter pylori testing. Verification of patient identification for the specimen was done. Estimated blood loss was minimal. Patchy mildly erythematous mucosa without active bleeding and with no stigmata of bleeding was found in the duodenal bulb. Biopsies were taken with a cold forceps for histology. Verification of patient identification for the specimen was done. Estimated blood loss was minimal. Impression: - LA Grade A reflux esophagitis with no bleeding. Biopsied. - Erythematous mucosa in the gastric body. Biopsied. - Erythematous duodenopathy. Biopsied. Recommendation: - Discharge patient to home. - Resume previous diet. - Continue present medications. - Await pathology results. Procedure Code(s): --- Professional --- 05563, Small intestinal endoscopy, enteroscopy beyond second portion of duodenum, not including ileum; with biopsy, single or multiple CPT copyright 2021 [employer]. All rights reserved. The codes documented in this report are preliminary and upon spring salvage worker review may be revised to meet current compliance requirements. Dinh Landers DO 03/15/2025 12:38:02 PM This report has been signed electronically. Number of Addenda: 0 Note Initiated On: 03/15/2025 11:45 AM
--- NOTE | 2025-03-15 12:38 | OP.EGD_ITS ---
Patient Name: Gely Keenan Procedure Date: 03/15/2025 11:45 AM Date of : 1990 Age: 34 Procedure: Upper GI endoscopy Indications: Epigastric abdominal pain Providers: Dinh Landers DO Referring MD: Kathi Mooney Medicines: Monitored Anesthesia Care Patient Profile: This is a 34 year old female. Refer to note in patient chart for documentation of history and physical. Patient has symptoms of chronic epigastric abdominal pain, chronic dyspepsia, chronic heartburn and chronic nausea. Complications: No immediate complications. Procedure: Pre-Anesthesia Assessment: - Prior to the procedure, a History and Physical was performed, and patient medications and allergies were reviewed. The patient is competent. The risks and benefits of the procedure and the sedation options and risks were discussed with the patient. All questions were answered and informed consent was obtained. Patient identification and proposed procedure were verified by the physician in the pre-procedure area. Mental Status Examination: alert and oriented. Airway Examination: normal oropharyngeal airway and neck mobility. Respiratory Examination: clear to auscultation. CV Examination: normal. Prophylactic Antibiotics: The patient does not require prophylactic antibiotics. Prior Anticoagulants: The patient has taken no anticoagulant or antiplatelet agents except for NSAID medication. ASA Grade Assessment: II - A patient with mild systemic disease. After reviewing the risks and benefits, the patient was deemed in satisfactory condition to undergo the procedure. The anesthesia plan was to use monitored anesthesia care (MAC). Immediately prior to administration of medications, the patient was re-assessed for adequacy to receive sedatives. The heart rate, respiratory rate, oxygen saturations, blood pressure, adequacy of pulmonary ventilation, and response to care were monitored throughout the procedure. The physical status of the patient was re-assessed after the procedure. After obtaining informed consent, the endoscope was passed under direct vision. Throughout the procedure, the patient's blood pressure, pulse, and oxygen saturations were monitored continuously. The Colonoscope was introduced through the mouth, and advanced to the fourth part of the duodenum. Small bowel enteroscopy was deemed necessary. The upper GI endoscopy was accomplished without difficulty. The patient tolerated the procedure well. Scope In: 12:07:20 PM Scope Out: 12:12:41 PM Total Procedure Duration Time 0 hours 5 minutes 21 seconds Findings: LA Grade A (one or more mucosal breaks less than 5 mm, not extending between tops of 2 mucosal folds) esophagitis with no bleeding was found. Biopsies were taken with a cold forceps for histology. Biopsies were taken with a cold forceps for histology. Verification of patient identification for the specimen was done. Estimated blood loss was minimal. Patchy mildly erythematous mucosa without bleeding was found in the gastric body. Biopsies were taken with a cold forceps for histology. Biopsies were taken with a cold forceps for Helicobacter pylori testing. Verification of patient identification for the specimen was done. Estimated blood loss was minimal. Patchy mildly erythematous mucosa without active bleeding and with no stigmata of bleeding was found in the duodenal bulb. Biopsies were taken with a cold forceps for histology. Verification of patient identification for the specimen was done. Estimated blood loss was minimal. Impression: - LA Grade A reflux esophagitis with no bleeding. Biopsied. - Erythematous mucosa in the gastric body. Biopsied. - Erythematous duodenopathy. Biopsied. Recommendation: - Discharge patient to home. - Resume previous diet. - Continue present medications. - Await pathology results. Procedure Code(s): --- Professional --- 19110, Small intestinal endoscopy, enteroscopy beyond second portion of duodenum, not including ileum; with biopsy, single or multiple CPT copyright 2021 [employer]. All rights reserved. The codes documented in this report are preliminary and upon logging tractor operator swamp review may be revised to meet current compliance requirements. Dinh Landers DO 03/15/2025 12:38:02 PM This report has been signed electronically. Number of Addenda: 0 Note Initiated On: 03/15/2025 11:45 AM
--- NOTE | 2025-03-15 12:43 | OP.PROVAT_ITS ---
03/15/2025 Kathi Mooney Re : Colonoscopy procedure for Gely Keenan Dear Jesica This procedure was performed on Saturday, March 15, 2025. My impressions and recommendations are as follows: Impressions : - Congested mucosa in the descending colon, at the hepatic flexure and in the ascending colon. Biopsied. - Diverticulosis in the sigmoid colon. - Congested mucosa in the terminal ileum. Biopsied. Recommendations : - Discharge patient to home. - Resume previous diet. - Continue present medications. - Await pathology results. - Repeat colonoscopy in 5 years for surveillance. My findings are described in the full procedure note, which is enclosed. If I can be of further assistance, please feel free to contact me at . Sincerely, Dinh Landers, 03/15/2025 12:42:24 PM This report has been signed electronically.
--- NOTE | 2025-03-15 12:43 | OP.COLON_ITS ---
Patient Name: Gely Keenan Procedure Date: 03/15/2025 12:12 PM Date of : 1990 Age: 34 Procedure: Colonoscopy Indications: Generalized abdominal pain, Abdominal pain in the left lower quadrant Providers: Dinh Landers DO Referring MD: Kathi Mooney Medicines: Monitored Anesthesia Care Patient Profile: This is a 34 year old female. Refer to note in patient chart for documentation of history and physical. Patient has symptoms of chronic epigastric abdominal pain, chronic dyspepsia, chronic heartburn and chronic nausea. Last Colonoscopy: none. The patient's first colonoscopy is today. Complications: No immediate complications. Procedure: Pre-Anesthesia Assessment: - Prior to the procedure, a History and Physical was performed, and patient medications and allergies were reviewed. The patient is competent. The risks and benefits of the procedure and the sedation options and risks were discussed with the patient. All questions were answered and informed consent was obtained. Patient identification and proposed procedure were verified by the physician in the pre-procedure area. Mental Status Examination: alert and oriented. Airway Examination: normal oropharyngeal airway and neck mobility. Respiratory Examination: clear to auscultation. CV Examination: normal. Prophylactic Antibiotics: The patient does not require prophylactic antibiotics. Prior Anticoagulants: The patient has taken no anticoagulant or antiplatelet agents except for NSAID medication. ASA Grade Assessment: II - A patient with mild systemic disease. After reviewing the risks and benefits, the patient was deemed in satisfactory condition to undergo the procedure. The anesthesia plan was to use monitored anesthesia care (MAC). Immediately prior to administration of medications, the patient was re-assessed for adequacy to receive sedatives. The heart rate, respiratory rate, oxygen saturations, blood pressure, adequacy of pulmonary ventilation, and response to care were monitored throughout the procedure. The physical status of the patient was re-assessed after the procedure. After I obtained informed consent, the scope was passed under direct vision. Throughout the procedure, the patient's blood pressure, pulse, and oxygen saturations were monitored continuously. The Colonoscope was introduced through the anus and advanced to the terminal ileum. The colonoscopy was performed without difficulty. The patient tolerated the procedure well. The quality of the bowel preparation was adequate. The terminal ileum was photographed. Scope In: 12:14:20 PM Scope Withdrawal Time 0 hours 10 minutes 25 seconds Scope Out: 12:27:39 PM Total Procedure Duration Time 0 hours 13 minutes 19 seconds Findings: The perianal and digital rectal examinations were normal. A patchy area of mildly congested mucosa was found in the descending colon, at the hepatic flexure and in the ascending colon. Biopsies were taken with a cold forceps for histology. Verification of patient identification for the specimen was done. Estimated blood loss was minimal. A few small-mouthed diverticula were found in the sigmoid colon. A patchy area of the terminal ileum was congested. Biopsies were taken with a cold forceps for histology. Verification of patient identification for the specimen was done. Estimated blood loss was minimal. Impression: - Congested mucosa in the descending colon, at the hepatic flexure and in the ascending colon. Biopsied. - Diverticulosis in the sigmoid colon. - Congested mucosa in the terminal ileum. Biopsied. Recommendation: - Discharge patient to home. - Resume previous diet. - Continue present medications. - Await pathology results. - Repeat colonoscopy in 5 years for surveillance. Procedure Code(s): --- Professional --- 02064, Colonoscopy, flexible; with biopsy, single or multiple CPT copyright 2021 [employer]. All rights reserved. The codes documented in this report are preliminary and upon spindraw operator review may be revised to meet current compliance requirements. Dinh Landers DO 03/15/2025 12:42:24 PM This report has been signed electronically. Number of Addenda: 0 Note Initiated On: 03/15/2025 12:12 PM
--- NOTE | 2025-03-15 12:43 | OP.COLON_ITS ---
Patient Name: Gely Keenan Procedure Date: 03/15/2025 12:12 PM Date of : 1990 Age: 34 Procedure: Colonoscopy Indications: Generalized abdominal pain, Abdominal pain in the left lower quadrant Providers: Dinh Landers DO Referring MD: Kathi Mooney Medicines: Monitored Anesthesia Care Patient Profile: This is a 34 year old female. Refer to note in patient chart for documentation of history and physical. Patient has symptoms of chronic epigastric abdominal pain, chronic dyspepsia, chronic heartburn and chronic nausea. Last Colonoscopy: none. The patient's first colonoscopy is today. Complications: No immediate complications. Procedure: Pre-Anesthesia Assessment: - Prior to the procedure, a History and Physical was performed, and patient medications and allergies were reviewed. The patient is competent. The risks and benefits of the procedure and the sedation options and risks were discussed with the patient. All questions were answered and informed consent was obtained. Patient identification and proposed procedure were verified by the physician in the pre-procedure area. Mental Status Examination: alert and oriented. Airway Examination: normal oropharyngeal airway and neck mobility. Respiratory Examination: clear to auscultation. CV Examination: normal. Prophylactic Antibiotics: The patient does not require prophylactic antibiotics. Prior Anticoagulants: The patient has taken no anticoagulant or antiplatelet agents except for NSAID medication. ASA Grade Assessment: II - A patient with mild systemic disease. After reviewing the risks and benefits, the patient was deemed in satisfactory condition to undergo the procedure. The anesthesia plan was to use monitored anesthesia care (MAC). Immediately prior to administration of medications, the patient was re-assessed for adequacy to receive sedatives. The heart rate, respiratory rate, oxygen saturations, blood pressure, adequacy of pulmonary ventilation, and response to care were monitored throughout the procedure. The physical status of the patient was re-assessed after the procedure. After I obtained informed consent, the scope was passed under direct vision. Throughout the procedure, the patient's blood pressure, pulse, and oxygen saturations were monitored continuously. The Colonoscope was introduced through the anus and advanced to the terminal ileum. The colonoscopy was performed without difficulty. The patient tolerated the procedure well. The quality of the bowel preparation was adequate. The terminal ileum was photographed. Scope In: 12:14:20 PM Scope Withdrawal Time 0 hours 10 minutes 25 seconds Scope Out: 12:27:39 PM Total Procedure Duration Time 0 hours 13 minutes 19 seconds Findings: The perianal and digital rectal examinations were normal. A patchy area of mildly congested mucosa was found in the descending colon, at the hepatic flexure and in the ascending colon. Biopsies were taken with a cold forceps for histology. Verification of patient identification for the specimen was done. Estimated blood loss was minimal. A few small-mouthed diverticula were found in the sigmoid colon. A patchy area of the terminal ileum was congested. Biopsies were taken with a cold forceps for histology. Verification of patient identification for the specimen was done. Estimated blood loss was minimal. Impression: - Congested mucosa in the descending colon, at the hepatic flexure and in the ascending colon. Biopsied. - Diverticulosis in the sigmoid colon. - Congested mucosa in the terminal ileum. Biopsied. Recommendation: - Discharge patient to home. - Resume previous diet. - Continue present medications. - Await pathology results. - Repeat colonoscopy in 5 years for surveillance. Procedure Code(s): --- Professional --- 95647, Colonoscopy, flexible; with biopsy, single or multiple CPT copyright 2021 [employer]. All rights reserved. The codes documented in this report are preliminary and upon him coder review may be revised to meet current compliance requirements. Dinh Landers DO 03/15/2025 12:42:24 PM This report has been signed electronically. Number of Addenda: 0 Note Initiated On: 03/15/2025 12:12 PM
== END 2025-03-15 13:01 | disposition home or self-care (01) ==
LOC: EN 10:40 → AC 10:41
PROVIDERS: PCP Nurse Practitioner Primary Care; Referring Provider Nurse Practitioner Primary Care; Visit Provider Internal Medicine Gastroenterology
PROC: 0DJD8ZZ Inspection of Lower Intestinal Tract, Via Natural or Artificial Opening Endoscopic (ICD-10-PCS; CPT 45378; principal; 2025-03-15 11:55)
DX: K57.30 Diverticulosis of large intestine without perforation or abscess without bleeding (principal); K21.00 Gastro-esophageal reflux disease with esophagitis, without bleeding; K63.89 Other specified diseases of intestine; K31.89 Other diseases of stomach and duodenum; K76.0 Fatty (change of) liver, not elsewhere classified; K29.50 Unspecified chronic gastritis without bleeding; K63.5 Polyp of colon; Z86.16 Personal history of COVID-19; Z80.0 Family history of malignant neoplasm of digestive organs; Z86.711 Personal history of pulmonary embolism; Z87.891 Personal history of nicotine dependence
CPT/HCPCS: 45380; 44361; 88305; 88342; J2405